=== PATIENT | female | born 1955 | race Caucasian/White ===

== ENCOUNTER 2019-03-29 11:24 | Emergency (ER) | payer BC ==
[2019-03-29 12:02] VITALS: BP 170/115
--- NOTE | 2019-03-29 12:17 | UC ---
Throat Pain/Nasal [place] HPI - HPI Summary HPI Summary: 64-year-old female who has had cold symptoms and intermittent head congestion over the past 2 months. She is no longer a smoker. Over the past few days she' s had increasing sinus pressure and now some sore throat which she attributed to postnasal drainage. - History of Current Complaint Chief Complaint: UCRespiratory Stated Complaint: SORE THROAT Time Seen by Provider: 03/29/19 12:05 Hx Obtained From: Patient ?: No Onset/Duration: Gradual Onset Severity: Moderate Pain Intensity: 10 Cough: Productive - Occasionally productive of some yellow sputum but the patient states this is postnasal drainage. Associated Signs & Symptoms: Positive: Sinus Discomfort, Nasal Discharge - Allergies/Home Medications Allergies/Adverse Reactions: Allergies Allergy/AdvReac Type Severity Reaction Status Date / Time No Known Allergies Allergy Verified 03/29/19 11:55 Home Medications: Home Medications Ibuprofen [Advil] 400 mg PO ONCE PRN 03/29/19 [History Confirmed 03/29/19] diphenhydrAMINE HCl [Benadryl Allergy] 50 mg PO ONCE PRN 03/29/19 [History Confirmed 03/29/19] PMH/Surg Hx/FS Hx/Imm Hx Previously Healthy: Yes - Surgical History Surgical History: Yes Surgery Procedure, Year, and Place: cataract - Family History Known Family History: Positive: Non-Contributory - Social History Lives: With Family Alcohol Use: Occasionally Substance Use Type: None Smoking Status (MU): Former Smoker Review of Systems All Other Systems Reviewed And Are Negative: Yes ENT: Positive: Sore Throat, Nasal Discharge, Sinus Congestion, Sinus Pain/ Tenderness Respiratory: Positive: Cough - Occasional cough of yellowish sputum which she states is postnasal drainage. Is Patient Immunocompromised?: No Physical Exam Triage Information Reviewed: Yes Appearance: Well-Appearing, No Pain Distress, Well-Nourished Vital Signs: Initial Vital Signs Temp 98.4 F 03/29/19 11:51 Pulse 87 03/29/19 11:51 Resp 18 03/29/19 11:51 BP 217/114 03/29/19 11:51 Pulse Ox 98 03/29/19 11:51 Vital Signs Reviewed: Yes Eyes: Positive: Conjunctiva Clear ENT: Positive: Pharyngeal erythema - Minimal pharyngeal erythema., Nasal congestion, Nasal drainage - Yellow purulent nasal coryza., TMs normal, Sinus tenderness - Tender over maxillary and frontal sinuses., Uvula midline Neck: Positive: Supple, Nontender, No Lymphadenopathy Respiratory: Positive: Lungs clear, Normal breath sounds, No respiratory distress, No accessory muscle use Cardiovascular: Positive: RRR, No Murmur, Pulses Normal, Brisk Capillary Refill Musculoskeletal Exam: Normal Neurological Exam: Normal Psychological Exam: Normal Skin Exam: Normal Throat Pain/Nasal Course/Dx - Course Course Of Treatment: Patient is comfortable here. I'm going to treat her for sinus infection and she is to follow up at [facility] no improvement in 4 or 5 days. - Differential Dx/Diagnosis Provider Diagnosis: Sinusitis Discharge ED - Sign-Out/Discharge Documenting (check all that apply): Patient Departure All imaging exams completed and their final reports reviewed: No Studies - Discharge Plan Condition: Fair Disposition: HOME Prescriptions: Amoxicillin PO (*) [Amoxicillin 875 MG (*)] 875 mg PO BID 10 Days #20 tab Patient Education Materials: Sinusitis (ED) Referrals: No Primary Care Phys,NOPCP [Primary Care Provider] - [facility] [Outside] Additional Instructions: Increase fluids, rest, [id number] cold medicines as directed. Follow up at [facility] in 4 or 5 days if no improvement. - Billing Disposition and Condition Condition: FAIR Disposition: Home
== END 2019-03-29 12:22 | disposition home or self-care (01) ==
LOC: UCEAST 11:24
DX: J32.9 Chronic sinusitis, unspecified (principal); J02.9 Acute pharyngitis, unspecified; Z87.891 Personal history of nicotine dependence
CPT/HCPCS: 99202; G0463

== ENCOUNTER 2019-04-26 10:14 | Inpatient (IN) | payer BC ==
--- NOTE | 2019-04-26 10:40 | ED ---
Throat Pain/Nasal Congestion - HPI Summary HPI Summary: This pt is a 64 y/o female presenting to [facility] c/o left sided throat pain. Pt reports she was found to have a mass on left side of neck on 04/24/10. She states she has a follow up with ENT in 4 days but decided to come in to the ED today due to pain. Pt notes she has had this mass for about 1 month now and has had decreased PO intake for 1 month secondary to pain. She has lost about 20 something lbs in the past 1 month. She states it is painful to swallow and has to spit out her secretions. Pt notes she is tired. Denies fever, SOB, chest pain. Pt is a former smoker, quit 7 years ago. - History of Current Complaint Chief Complaint: EDThroatPain Time Seen by Provider: 04/26/19 10:34 Hx Obtained From: Patient Onset/Duration: Lasting Weeks, Still Present Severity: Moderate Associated Signs And Symptoms: Positive: Drooling Cough: None Related History: Other (Noted In Comments) - CT on 04/24/19 showing mass on left side of neck - Allergies/Home Medications Allergies/Adverse Reactions: Allergies Allergy/AdvReac Type Severity Reaction Status Date / Time No Known Allergies Allergy Verified 04/26/19 10:28 PMH/Surg Hx/FS Hx/Imm Hx Endocrine/Hematology History: Denies: Hx Diabetes Cardiovascular History: Denies: Hx Hypertension - episode x 1 no meds History: Reports: Hx Renal Disease - abnormal gfr Denies: Hx Dialysis - Surgical History Surgical History: Yes Surgery Procedure, Year, and Place: cataract Infectious Disease History: No Infectious Disease History: Denies: Traveled Outside the [place] in Last 30 Days - Family History Known Family History: Positive: Cardiac Disease - Brother with PA Family History: Father with [place]. - Social History Alcohol Use: Occasionally Substance Use Type: Reports: None Smoking Status (MU): Former Smoker Review of Systems Constitutional: Other - POSITIVE: decreased PO intake Negative: Fever, Chills ENT: Other - POSITIVE: throat pain Negative: Chest Pain Negative: Shortness Of Breath All Other Systems Reviewed And Are Negative: Yes Physical Exam - Summary Physical Exam Summary: VITAL SIGNS: Reviewed. GENERAL: Patient is a well-developed and nourished female. Patient is not in any acute respiratory distress. Patient has muffled voice and is drooling. HEAD AND FACE: No signs of trauma. No ecchymosis, hematomas or skull depressions. No sinus tenderness. EYES: PERRLA, EOMI x 2, No injected conjunctiva, no nystagmus. EARS: Hearing grossly intact. Ear canals and tympanic membranes are within normal limits. MOUTH: Oropharynx within normal limits. Drooling NECK: Supple, trachea is midline, swelling on the soft palate on the left side. No JVD, no carotid bruit, no c-spine tenderness, neck with full ROM. CHEST: Symmetric, no tenderness at palpation. LUNGS: Clear to auscultation bilaterally. No wheezing or crackles. CVS: Regular rate and rhythm, S1 and S2 present, no murmurs or gallops appreciated. ABDOMEN: Soft, non-tender. No signs of distention. No rebound, no guarding, and no masses palpated. Bowel sounds are normal. EXTREMITIES: FROM in all major joints, no edema, no cyanosis or clubbing. NEURO: Alert and oriented x 3. No acute neurological deficits. Speech is normal and follows commands. SKIN: Dry and warm. Triage Information Reviewed: Yes Vital Signs On Initial Exam: Initial Vitals Temp Pulse Resp BP Pulse Ox 97.7 F 101 16 142/96 97 04/26/19 10:25 04/26/19 10:25 04/26/19 10:25 04/26/19 10:25 04/26/19 10:25 Vital Signs Reviewed: Yes Procedures - Sedation Patient Received Moderate/Deep Sedation with Procedure: No Diagnostics - Vital Signs Vital Signs Temp Pulse Resp BP Pulse Ox 04/26/19 10:25 97.7 F 101 16 142/96 97 - Laboratory Result Diagrams: 04/26/19 10:53 04/26/19 10:53 Lab Statement: Any lab studies that have been ordered have been reviewed, and results considered in the medical decision making process. - Radiology Chest XR Radiology Interpretation Completed By: Radiologist Summary of Radiographic Findings: IMPRESSION: 1. No focal airspace opacification. 2. CT is more sensitive for small pulmonary nodules (could be done electively as part of staging workup). Dr. Bernabe has reviewed this report. - CT Neck CT (04/24/19) CT Interpretation Completed By: Radiologist Summary of CT Findings: IMPRESSION: Aggressive appearing 3.8 x 3.9 x 6 cm LEFT neck mass as described involement of multiple deep spaces of the neck and direct extesnsion into the LEFT skull base and LEFT anterior arch of C1. Consider contrast-enhanced CT for further assessment and ENT referral for direct optical inspection and tissue sampling for pathologic assessment. Dr. Bernabe has reviewed this report. - EKG 1055 Cardiac Rate: NL - at 87 bpm EKG Rhythm: Sinus Rhythm Summary of EKG Findings: EKG at 1055 shows normal sinus rhythm at a rate of [address] depressions in leads II, III, aVF, V3-V6. EENT Course/Dx - Course Assessment/Plan: This pt is a 64 y/o female presenting to [facility] c/o left sided throat pain. Pt reports she was found to have a mass on left side of neck on 02/22. She states she has a follow up with ENT in 4 days but decided to come in to the ED today due to pain. Pt notes she has had this mass for about 1 month now and has had decreased PO intake for 1 month secondary to pain. She has lost about 20 something lbs in the past 1 month. She states it is painful to swallow and has to spit out her secretions. Pt notes she is tired. Denies fever, SOB, chest pain. Pt is a former smoker, quit 7 years ago. Blood test results without any significant abnormality except for WBCs of 12, potassium 3, chloride 90, anion gap is 16, BUN is 53, creatinine 1.69. Glucose is 142, calcium 12, alkaline phosphatase is 112. The neck CT done a couple days ago shows that the patient has a mass on the left side of the neck. I discussed the case with Dr. Torres, ENT, and requests to admit the patient to the hospitalist services. Discussed with Dr. Camacho to perform fine needle aspiration and he will consult tomorrow morning. I also discussed the case with Dr. Rivera from oncology who will consult for this patient. I discussed my physical exam and test results with Dr. Pantoja from the hospitalist services and she agrees to admit the patient to her services. The patient is hemodynamically stable, alert and oriented x 3. - Diagnoses Provider Diagnoses: Neck mass - Provider Notifications Discussed Care Of Patient With: Jaime Torres Time Discussed With Above Provider: 10:42 Instructed by Provider To: Other - Discussed case with Dr. Torres, ENT, who reports he will review the CT scan and call me back in 10-15 minutes. [10:53] Dr. Torres recommends admission to the hospitalist, speaking with Dr. Camacho, pathologist, to see if he can do a fine needle aspiration and he will consult for the pt tomorrow morning. [11:22] Dr. Richardson reports he is coming to do the biopsy. [11:48] Discussed the case with Dr. Pantoja, hospitalist , who accepted the pt for admission. [11:50] Discussed with Dr. Rivera, oncologist , who will also consult for the patient. Discharge ED - Sign-Out/Discharge Documenting (check all that apply): Patient Departure - Admit to [facility] All imaging exams completed and their final reports reviewed: Yes - Discharge Plan Condition: Stable Disposition: ADMITTED TO [facility] - Billing Disposition and Condition Condition: STABLE Disposition: Admitted to [facility] - Attestation Statements Document Initiated by Cristiane: Yes Documenting Scribe: Adriana Valdez Provider For Whom Cristiane is Documenting (Include Credential): Russell Bernabe MD Scribe Attestation: Adriana Palacios, scribed for Russell Bernabe MD on 04/26/19 at 2125. Scribe Documentation Reviewed: Yes Provider Attestation: The documentation as recorded by the Adriana piper accurately reflects the service I personally performed and the decisions made by me, Russell Bernabe MD Status of Scribe Document: Viewed
[2019-04-26] MEDS ORDERED: NS 0.9% 1000 ML** 2,000 ML IV ONE (10:44)
[2019-04-26] MEDS ORDERED: Morphine 4 MG/ML VIAL (1 ml) 4 MG/ML VIAL IV ONE (10:45)
[2019-04-26] MEDS ORDERED: Ondansetron INJ* 2 MG/ML VIAL IV ONE (10:45)
[2019-04-26 11:08] LABS: ABS Lymphocytes 1.2 10^3/ul (1.0-4.8); ABS Monocytes 0.6 10^3/ul (0-0.8); ABS Neutrophils 10.1 10^3/ul (1.5-7.7); Eosinophil % 0.1 %; Hematocrit 44 % (35-47); Hemoglobin 14.7 g/dL (12.0-16.0); Lymphocyte % 10.3 %; Mean Corpuscular HGB Conc 34 g/dL (31-36); Mean Corpuscular Hemoglobin 29 pg (27-31); Mean Corpuscular Volume 86 fL (80-97); Mean Platelet Volume 7.7 fL (7.4-10.4); Nucleated Red Blood Cells % 0.1; Platelet Count 437 10^3/uL (150-450); Red Blood Count 5.12 10^6 /uL (3.70-4.87); Red Cell Distribution Width 13 % (10-15)
--- OUTSIDE RECORDS SUMMARY | 2019-04-26 11:10 | XMS REPORT | Continuity of Care Document ---
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 Problems Description No Information Available Social History Type Date Description Comments Sex Unknown Tobacco Use Start: Unknown Patient has never smoked Smoking Status Reviewed: 04/23/19 Patient has never smoked Allergies, Adverse Reactions, Alerts Description No Known Drug Allergies Medications Description No Active Medications Immunizations Description No Information Available Vital Signs Date Vital Result Comment 04/23/2019 10:18am Height 66 inches 5'6" Weight 117.00 lb Heart Rate 94 /min BP Systolic 176 mmHg BP Diastolic 111 mmHg BP Systolic Sitting 157 mmHg recheck BP Diastolic Sitting 105 mmHg recheck Body Temperature 98.1 F O2 % BldC Oximetry 96 % BMI (Body Mass Index) 18.9 kg/m2 Results Test Acquired Date Facility Test Result H/L Range Note Laboratory test 04/23/2019 [facility] TSH 2.27 Normal 0.34- 5.[address] (Thyroid mcIU/[place] [address] Stim [phone] Horm) Free T4 (Free Thyroxine) 1.41 ng/dL High 0.61-1.12 Comp Metabolic 04/23/2019 [facility] Sodium 139 mmol/L Normal 135-[address] [place] [address] [phone] Potassium 3.6 mmol/L Normal 3.5-5.0 Chloride 90 mmol/L Low 101-111 Co2 Carbon Dioxide 32 mmol/L Normal 22-32 Anion Gap 17 mmol/L High 2-11 Glucose 132 mg/dL High 70-100 Blood Urea Nitrogen 43 mg/dL High 6-24 Creatinine 1.38 mg/dL High 0.51-0.95 BUN/Creatinine Ratio 31.2 High 8-20 Calcium 12.7 mg/dL High 8.6-10.3 Total Protein 7.8 g/dL Normal 6.4-8.9 Albumin 4.9 g/dL Normal 3.2-5.2 Globulin 2.9 g/dL Normal 2-4 Albumin/Globulin Ratio 1.7 Normal 1-3 Total Bilirubin 0.90 mg/dL Normal 0.2-1.0 Alkaline Phosphatase 115 U/L High 34-104 Alt 57 U/L High 7-52 Ast 48 U/L High 13-39 Egfr Non- 38.7 >60 Egfr 46.9 >60 1 CBC Auto 04/23/2019 [facility] White Blood 11.9 10^3/uL High 3.5-10.[address] [place] [address] [phone] Red Blood Count 5.33 10^6/uL High 3.70-4.87 Hemoglobin 15.3 g/dL Normal 12.0-16.0 Hematocrit 46 % Normal 35-47 Mean Corpuscular Volume 87 fL Normal 80-97 Mean Corpuscular Hemoglobin 29 pg Normal 27-31 Mean Corpuscular HGB Conc 33 g/dL Normal 31-36 Red Cell Distribution Width 13 % Normal 10-15 Platelet Count 479 10^3/uL High 150-450 Mean Platelet Volume 7.7 fL Normal 7.4-10.4 Abs Neutrophils 10.2 10^3/uL High 1.5-7.7 Abs Lymphocytes 1.1 10^3/uL Normal 1.0-4.8 Abs Monocytes 0.6 10^3/uL Normal 0-0.8 Abs Eosinophils 0.0 10^3/uL Normal 0-0.6 Abs Basophils 0.0 10^3/uL Normal 0-0.2 Abs Nucleated RBC 0.0 10^3/uL Granulocyte % 86.0 % Lymphocyte % 9.0 % Monocyte % 4.8 % Eosinophil % 0.1 % Basophil % 0.1 % Nucleated Red Blood Cells % 0.0 Laboratory test 04/23/2019 [facility] C Reactive 6.30 mg/L Normal <8.[address] [place] [address] [phone] LDH 247 U/L Normal 140-271 1 Because ethnic data is not always readily available, this report includes an eGFR for both -Americans and non- Americans. The National Kidney Disease Education Program (NKDEP) does not endorse the use of the MDRD equation for patients that are not between the ages of 18 and 70, are , have extremes of body size, muscle mass, or nutritional status, or are non- or non-. According to the National Kidney Foundation, irrespective of diagnosis, the stage of the disease is based on the level of kidney function: Stage Description GFR(mL/min/1.73 m(2)) 1 Kidney damage with normal or decreased GFR 90 2 Kidney damage with mild decrease in GFR 60-89 3 Moderate decrease in GFR 30-59 4 Severe decrease in GFR 15-29 5 Kidney failure <15 (or dialysis) Procedures Description No Information Available Medical Devices Description No Information Available Encounters Description No Information Available Assessments Date Code Description Provider 04/23/2019 R22.1 Localized swelling, mass and lump, neck Arvind Sevilla MD 04/23/2019 R13.10 Dysphagia, unspecified Arvind Sevilla MD 04/23/2019 Z00.01 Encounter for general adult medical examination with Arvind Sevilla MD abnormal findings 04/23/2019 I10 Essential (primary) hypertension Arvind Sevilla MD Plan of Treatment Future Appointment(s):05/01/2019 8:00 am - Beata Luciano DO at [facility] Internal Medicine - [address]/24/2018 - FERN Johnson22.1 Localized swelling, mass and lump, neckNew Xrays:CT Soft Tissue Neck W/Wo, Ordered: 04/23/19Referral: Tulio Torres MD, [id number] Dysphagia, [id number] Encounter for general adult medical examination with abnormal [id number] Essential (primary) hypertension Functional Status Description No Information Available Mental Status Description No Information Available Referrals Refer to Reason for Referral Status Appt Date Tulio Torres MD Dysphagia and suspected Throat mass Created [address] [place] [address] [phone]
--- OUTSIDE RECORDS SUMMARY | 2019-04-26 11:10 | XMS REPORT | Continuity of Care Document ---
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 Problems Description No Information Available Social History [...] Result H/L Range Note Laboratory test 04/23/2019 [facility] TSH 2.27 Normal 0.34- 5.[address] (Thyroid mcIU/[place] [address] Stim [phone] Horm) Free T4 (Free Thyroxine) 1.41 ng/dL High 0.61-1.12 Comp Metabolic 04/23/2019 [facility] Sodium 139 mmol/L Normal 135-[address] [place] [address] [phone] Potassium 3.6 mmol/L Normal 3.5-5.0 Chloride 90 [...] Egfr 46.9 >60 1 CBC Auto 04/23/2019 [facility] White Blood 11.9 10^3/uL High 3.5-10.[address] [place] [address] [phone] Red Blood Count 5.33 10^6/uL High 3.70-4.87 [...] Blood Cells % 0.0 Laboratory test 04/23/2019 [facility] C Reactive 6.30 mg/L Normal <8.[address] [place] [address] [phone] LDH 247 U/L Normal 140-271 1 Because [...] 8:00 am - Beata Luciano DO at [facility] Internal Medicine - [address]/24/2018 - FERN Johnson22.1 Localized swelling, mass and lump, neckNew Xrays:CT Soft Tissue Neck W/Wo, Ordered: 04/23/19Referral: Tulio Torres MD, [id number] Dysphagia, [id number] Encounter for general adult medical examination with abnormal [id number] Essential (primary) hypertension Functional Status Description No Information Available Mental Status Description No Information Available Referrals Refer to Reason for Referral Status Appt Date Tulio Torres MD Dysphagia and suspected Throat mass Created [address] [place] [address] [phone]
[2019-04-26 11:25] LABS: Albumin 4.6 g/dL (3.2-5.2); Albumin/Globulin Ratio 1.2 (1-3); BUN/Creatinine Ratio 31.4 (8-20); C Reactive Protein 4.74 mg/L (<8.01); EGFR African American 37.1 (>60); EGFR Non-African American 30.7 (>60); Globulin 3.7 g/dL (2-4); Total Bilirubin 0.9 mg/dL (0.2-1.0); Total Protein 8.3 g/dL (6.4-8.9)
[2019-04-26 12:33] LABS: Magnesium 2.1 mg/dL (1.9-2.7)
[2019-04-26] MEDS ORDERED: NS 0.9% 1000 ML** 1,000 ML IV SCH (12:45)
[2019-04-26] MEDS: KCL 10 MEQ/50 ML IVPREMIX* 10 MEQ/50 ML BAG IV SCH ×2 (12:45→14:40)
--- NOTE | 2019-04-26 12:56 | PN ---
Date of Service: 04/26/19 Vital Signs: Temp Pulse Resp BP SpO2 FiO2 36.5 C 68 18 147/99 100 04/26/19 10:25 04/26/19 12:00 04/26/19 11:14 04/26/19 11:25 04/26/19 12:00 Physical Exam: Gen: HEENT: Lungs: Cardiac: Abdomen: Extremities: Neuro: Fluid Balance (Past 24 Hours): I= O= Net Intake & Output 04/24/19 04/25/19 04/26/19 04/27/19 06:59 06:59 06:59 06:59 Intake Total 1000 Balance 1000 Weight 53.07 kg Intake: IV Fluids 1000 Labs: Laboratory Results - last 24 hr 04/26/19 04/26/19 10:53 10:53 WBC 12.0 H RBC 5.12 H Hgb 14.7 Hct 44 MCV 86 MCH 29 MCHC 34 RDW 13 Plt Count 437 MPV 7.7 Neut % (Auto) 84.0 Lymph % (Auto) 10.3 Grainger % (Auto) 5.3 Eos % (Auto) 0.1 Baso % (Auto) 0.3 Absolute Neuts (auto) 10.1 H Absolute Lymphs (auto) 1.2 Absolute Monos (auto) 0.6 Absolute Eos (auto) 0.0 Absolute Basos (auto) 0.0 Absolute Nucleated RBC 0.0 Nucleated RBC % 0.1 Sodium 137 Potassium 3.0 L Chloride 90 L Carbon Dioxide 31 Anion Gap 16 H BUN 53 H Creatinine 1.69 H Est GFR ( Amer) 37.1 Est GFR (Non-Af Amer) 30.7 BUN/Creatinine Ratio 31.4 H Glucose 142 H Calcium 12.0 H Magnesium 2.1 Total Bilirubin 0.90 AST 41 H ALT 75 H Alkaline Phosphatase 112 H C-Reactive Protein 4.74 Total Protein 8.3 Albumin 4.6 Globulin 3.7 Albumin/Globulin Ratio 1.2 Plan: Asked to see by Dr. Chong for airway evaluation. Came to ED today with progressive symptoms of vocal tonal change in setting of the known mass. Just underwent left lateral neck submandibular biopsy of known mass in the ED. She speaks in full sentences, denies SOB. Lung gonsales are clear and she has no stridor. Mild dysphagia but the pain is high lateral neck anterior to her ear not in the area of the esophagus. She has no stridor at all and is saturating well on RA with no excess WOB. CT scan to my eye with no subglottic impingement. The mass is readily visible in the lateral neck but the hypopharynx is widely patent to the cords. No evidence of airway compromise at this time. OK to floor. D/W pt and family in detail who had no concerns at all along these lines and voiced understanding and appreciation for the care. D/W Dr Chong.
--- NOTE | 2019-04-26 14:23 | HP ---
HISTORY AND PHYSICAL: DATE OF ADMISSION: 04/26/19 TIME OF EVALUATION: 11:50 a.m. CHIEF COMPLAINT: Neck pain. HISTORY OF PRESENT ILLNESS: Ms. Francis is a 64-year-old female with no reported past medical history, but who also does not see a primary care provider, who reports that about a month ago she developed "sinusitis." She describes postnasal drip, nasal congestion, and she went to urgent care on 03/29/19 and she was prescribed amoxicillin. She states that she had no improvement in her symptoms and they actually have progressed to the point that she started to have difficulty swallowing due to the large amount of mucus. She states that her last solid meal was during , and since then, she has been able to drink only liquids. She saw Dr. Sevilla at the [facility] on 04/23/19, and as per his note , the patient had developed nasal quality to her voice in early February, presented to urgent care on 03/29/19 with intermittent cold and sinus congestion for 2 months. Was prescribed amoxicillin for 10 days. She had complaints of soreness at the back of her head and neck, more on the left side as well as copious amount of yellow brown mucus. There was no history of fever and she also noticed some left-sided neck swelling. She lost 20 pounds in the last month with a choking sensation and is frequently spitting food back up. No pain when swallowing. At that time, he ordered a CT of the neck that showed an aggressive appearing 3.8 x 3.9 x 6 cm left neck mass with involvement of multiple deep spaces of the neck and direct extension to the left skull base and left anterior arch of C1. Due to this aggressive mass, the hospitalist service was called for evaluation. PAST MEDICAL HISTORY: The patient denies any other health issues, but has not seen a primary care provider in more than 10 years. PAST SURGICAL HISTORY: Status post cataract surgery. MEDICATIONS: None. ALLERGIES: None. FAMILY HISTORY: Father was a smoker, at age 74 of lung cancer. Mother passed at age 71 of COPD, she was also a smoker. As far as she knows, there is no other family history of cancer. SOCIAL HISTORY: The patient states that she used to have 3 to 4 beers a day in the past, but since she started to have symptoms she has not had alcohol. She was a smoker from age 20 to 58 up to a pack a day. She denies drug use. 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 Surrogate decision maker is her , Sj Francis, phone number is [phone]. REVIEW OF SYSTEMS: A 14-point review of systems was performed and all the pertinent negative and positive findings are in the HPI. PHYSICAL EXAMINATION GENERAL: The patient is a pleasant elderly lady, sitting up in bed, in no acute distress. VITAL SIGNS: Temperature 97.7, heart rate is 65, respiratory rate is 18, oxygen saturation is 97% on room air, blood pressure is 153/96. HEENT: Pupils are equal. Moist mucous membranes. There is deformity of the soft palate on the left with signs of extrinsic compression. There is a palpable hard mass on the left aspect of the mandible under the left ear involving her neck and extending upwards towards the back of the ear. The mass is mildly tender on palpation. It is nonmobile. CHEST: Breath sounds present bilaterally with no added sounds. CVS: Normal S1, S2. Regular rate and rhythm. ABDOMEN: Soft, nontender, nondistended. Bowel sounds are present. EXTREMITIES: No edema. NEURO: She is alert and oriented x3. Able to move all 4 extremities. DIAGNOSTIC STUDIES/LAB DATA: The patient had a CBC that showed a WBC of 12, hemoglobin 14.7, hematocrit 44, platelets of 457 with 84% neutrophils. Chemistry showed a sodium of 137, potassium of 3, chloride of 90, bicarb of 31, BUN 53, creatinine is 1.69, glucose of 142, calcium is 12, magnesium is 2.1. LFTs showed total bilirubin of 0.9, AST 41, ALT is 75, alk phos is 112. CT of the neck without contrast as described above showed a 3.8 x 3.9 x 6 cm left neck mass with involvement of multiple deep spaces of the neck and direct extension into the left skull base and left anterior arch of C1. EKG done on 04/26/19 at 10:55 a.m. shows sinus rhythm at 87 beats per minute with diffuse ST depressions in II, III, aVF and anterior leads and signs of LVH. Chest x-ray showed no focal airspace opacification. ASSESSMENT AND PLAN: Ms. Francis is a 64-year-old female with a past medical history of tobacco abuse and limited contact with the health care system, who presents with more than a month of progressive upper respiratory symptoms, initially treated for sinusitis, but who developed a left-sided neck mass suggestive of an aggressive malignancy. 1. Neck mass. The patient will be admitted to the medical floor and she will have a fine needle aspiration biopsy done by . Consultations with Dr. Torres (ENT) and Dr. Rivera (Oncology) were already requested as we suspect this is an aggressive malignancy and the patient will require therapy soon. We will continue pain management. She will have a swallow evaluation, but for now we will continue a clear liquid diet. 2. Transaminitis. Can be secondary to metastatic disease. For now, I am going to do a right upper quadrant ultrasound, and after Oncology evaluation, we will request the other staging tests that Oncology wishes. 3. DVT prophylaxis: The patient has a score of 2 on the DVT Prophylaxis Risk Assessment Guide and she will have SCDs for now as she will have a biopsy done. 4. Code status is full. TIME SPENT: Approximately 60 minutes was spent with the patient and family interview, medical records review, physical examination to complete this admission; more than half this time was spent [id number] with the patient and coordination of care. [id number]/[facility] #: [id number] JONELLE
[2019-04-26] MEDS: Morphine INJ* 4 MG/ML 1 ML SYRINGE (NEW SYRINGE VERSION) IV PRN ×4 (14:40→23:22)
--- NOTE | 2019-04-26 16:14 | ECHO ---
*[facility]* [place] [address] Fax #: [phone] Transthoracic Echocardiogram Patient: Sammie Francis : 1955 Study Date: 04/26/2019 Age: 64 Gender: F HR: 61 bpm Height: 66 in /167.6 cm BSA: 1.59 m^2 Weight: 116.8 lb /53.1 kg BMI: 18.9 kg/m^2 *Elementary School Social Worker: * Concetta Hou [facility] *Referring Physician: * Jeniffer MaharajReading Physician: * Edgar Palomino MD Indications: Abnormal EKG. History: Risk factors: Former tobacco use. Conclusions Summary: - Left ventricle: The cavity size is normal. Wall thickness is mildly increased. Systolic function is normal. The estimated ejection fraction is 55-60%. - Mitral valve: There is trace regurgitation. - Aortic valve: There is trace regurgitation. - Tricuspid valve: There is moderate regurgitation directed eccentrically and toward the septum. - Pulmonary arteries: Systolic pressure is mildly increased. The peak pressure during systole by Doppler is 41.0 mm Hg. - No previous echocardiogram available. Study data: Transthoracic echocardiogram. Procedure: Transthoracic echocardiography was performed. Image quality was fair. Complete 2D, spectral Doppler, and color flow Doppler. Location: Bedside. Patient status: Inpatient. Patient room number: 421. Rhythm: Normal sinus rhythm. Findings Left ventricle: The cavity size is normal. Wall thickness is mildly increased. Systolic function is normal. The estimated ejection fraction is 55-60%. Wall motion is normal; there are no regional wall motion abnormalities. Left ventricular diastolic function parameters are normal. Right ventricle: The cavity size is normal. Systolic function is normal. Left atrium: The atrium is normal in size. Right atrium: The atrium is normal in size. Mitral valve: The leaflets are normal thickness. There is no evidence of stenosis. There is trace regurgitation. Aortic valve: The valve is trileaflet. The leaflets are mildly thickened. There is no evidence of stenosis. There is trace regurgitation. Tricuspid valve: The leaflets are normal thickness. There is no evidence of stenosis. There is moderate regurgitation directed eccentrically and toward the septum. Pulmonic valve: The leaflets are normal thickness. There is no evidence of stenosis. There is no significant regurgitation. Aorta: Aortic root: The aortic root is appears normal. Aortic arch: The aortic arch is poorly visualized. Pericardium: There is no significant pericardial effusion. Pulmonary arteries: Systolic pressure is mildly increased. Systemic veins: Inferior vena cava: The vessel is normal in size. There is (>= 50%) respiratory change in the IVC dimension. Measurements Left ventricle Value Ref Aortic valve Value Ref DALLIN, LAX (L) 3.7 cm 3.8 - Luz diam, ED 1.9 cm ----- 5.2 Peak v, S 1.19 m/sec ----- ESD, LAX 2.6 cm 2.2 - VTI, S 21.7 cm ----- 3.5 Mean grad, S 3.0 mm Hg ----- FS, LAX 28 % 27 - 45 Peak grad, S 6.0 mm Hg ----- PW, ED, LAX (H) 1.1 cm 0.6 - 0.9 Mitral valve Value Ref E', lat luz, TDI 13.3 cm/sec >=10.0 Peak E 0.7 m/sec --- -- E/e', lat luz, TDI 5 -------- Peak A 0.6 m/sec ----- E', med luz, TDI 9.3 cm/sec >=7.0 Decel time 280 ms --- -- E/e', med luz, TDI 8 -------- Peak E/A ratio 1.2 ----- E', avg, TDI 11.3 cm/sec -------- E/e', avg, TDI 6 <=14 Tricuspid valve Value Ref TR peak v (H) 3.1 m/sec <=2.8 LVOT Value Ref Peak RV-RA grad, S 38 mm Hg ----- Peak darron, S 1.2 m/sec -------- Peak grad, S 6 mm Hg -------- Aortic root Value Ref Mean grad, S 2 mm Hg -------- Root diam 3.3 cm <3.8 Ventricular septum Value Ref Pulmonary artery Value Ref IVS, ED 0.9 cm 0.6 - Pressure, S 41.0 mm Hg ----- 0.9 Inferior vena cava Value Ref Right ventricle Value Ref Diam 1.5 cm ----- DALLIN minor ax, A4C 2.6 cm 1.9 - mid 3.5 Pulmonary veins Value Ref Pressure, S 41 mm Hg -------- Peak v, S 0.6 m/sec ----- Peak v, D 0.37 m/sec ----- Left atrium Value Ref Peak S/D ratio 1.6 ----- ML dim, A4C 3.5 cm -------- A rev duration 108 ms ----- SI dim, A4C 4.7 cm -------- Vol/bsa, ES, A/L 28 ml/m^2 16 - 34 Right atrium Value Ref SI dim, ES 3.6 cm 3.4 - 5.3 ML dim, ES, A4C 3.7 cm 2.6 - 4.4 Estimated RAP 3 mm Hg -------- Legend: (L) and (H) melissa values outside specified reference range. Prepared and electronically signed by Edgar Palomino MD 04/26/2019 16:13
[2019-04-26] MEDS ORDERED: Zoledronic Acid* 4 MG in NS 0.9% 100 ML* 95 ML IVPB ONE (19:30)
--- NOTE | 2019-04-26 20:21 | CONS ---
CONSULTATION REPORT: DATE OF CONSULT: 04/26/19 IDENTIFICATION: A 64-year-old female with sinus mass. HISTORY OF PRESENT ILLNESS: Ms. Francis has generally been in very good health, generally does not go to see the doctor regularly. She developed a cold in late summer to early fall that was persistent and just felt like it never went away. She had nasal drip and a consistent nasal congestion. Symptoms were progressing in March and she went to Urgent Care on 03/29/19, diagnosed with sinusitis and prescribed amoxicillin. Her symptoms did not improve at all. Over the past 3 weeks, her symptoms had gotten worse and worse. She started to develop excruciating pain in her sinus and neck. She cannot move her neck and it got to the point that any movement is painful. She stopped eating solid foods because she could not swallow comfortably. It was progressive pain in the face and the neck that brought her to the emergency room. She had seen Dr. Sevilla at [facility] on 04/23/19 who noticed soreness at the back of her head and neck, particularly on the left side. He ordered a CT scan of the neck, performed on 04/24/19. CT was done without contrast and showed a 3.8 x 6 cm soft tissue density centered in the left oropharynx and extending to the skull base as well as into the hypopharynx and down to the hyoid bone. Mass obscures soft tissue planes and parapharyngeal and lateral pharyngeal space. It extends into the bone at the left skull base. No clear lymphadenopathy. On presentation to the emergency room, an FNA was done, results are pending. She was admitted to the floor. Additional blood work today included chemistries with potassium of 3.0, creatinine 1.69, calcium 12, repeated with PTH with calcium 12.2 and PTT 2.6, AST 41, ALT 75, and alkaline phosphatase 112. She has a glucose of 142. Leukocytosis with white cells 12; mostly neutrophils, normal hemoglobin and platelets, but she is dehydrated. In addition to pain and decreased appetite, she reports some constipation, normal urination, and a decrease or lack of oral intake. No fever, chills, or night sweats and she has not felt any lymphadenopathy. She has had a 20-pound weight loss over the last month. PAST MEDICAL HISTORY: None. PAST SURGICAL HISTORY: Cataracts. ALLERGIES: Allergies. FAMILY HISTORY: Father had lung cancer at 74 and was a smoker. Mother was a smoker and had COPD. SOCIAL HISTORY: . is with her in the hospital. Drinker prior to being ill, 3 to 4 beverages per day. History of smoking, [id number], but has stopped. 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 Jorge Francis is the and surrogate decision maker. His phone is [phone]. REVIEW OF SYSTEMS: As noted in the history of present illness; otherwise, 14- review was negative. PHYSICAL EXAM: Temperature 97.4, BP 150/89, pulse 64, respirations 16, O2 sat 93%. HEENT: Oral mucosa moist. No lesions. Pupils equal, round, and reactive to light. She does not open her mouth very far and it is hard to see the back of the oropharynx, but there was a bulge on the soft palate with some shift. On neck exam, there is a palpable mass under the left mandible extending up to the skull base and over the neck musculature. Tenderness with any movement. Lungs: Clear to auscultation bilaterally. Heart: Regular rate and rhythm, S1 , S2. No murmurs or gallops. Abdomen: Nontender, nondistended. Cannot palpate the spleen. Nodes: No peripheral lymphadenopathy. Extremities: No edema. Neurologic: Oriented x3, grossly nonfocal. DIAGNOSTIC STUDIES/LAB DATA: Labs and CT as above. ASSESSMENT AND PLAN: A 64-year-old female who presents with a large mass likely originating in the oropharynx and invading into the bone and through structures of the left neck. She also presents with hypercalcemia, low potassium. Initially appearance with FNA is lymphoid. Differential diagnosis include aggressive lymphoma; T cell or B cell, nasopharyngeal carcinoma, poorly differentiated squamous cell cancer, possible less likely given initial pathology read. 1. Malignancy. We would like to correct renal insufficiency and then plan CT scan of the chest, abdomen, and pelvis as well as MRI of the sinuses and neck. We will await additional pathology results. Check LDH, beta-2 microglobulin, and SPEP. If tomorrow initial lymphoid markers are positive, we will plan bone marrow biopsy. 2. FEN. Normal saline at 200 cc an hour with 40 mEq of potassium. Zometa 4 mg IV x1 now. Recheck CMP and magnesium in the morning. 3. Pain. Currently on morphine 4 mg IV p.r.n. We will continue to follow through hospitalization. [id number]/[facility] #: [id number] JONELLE
[2019-04-26] MEDS: PROCHLORPERAZINE INJ 5 MG/ML 2 ML VIAL IV PRN (20:50)
[2019-04-26] MEDS: NS 0.9% w/ 40 Meq KCL 1000 ML* 1,000 ML IV SCH ×2 (23:01)
[2019-04-27] MEDS: Morphine INJ* 4 MG/ML 1 ML SYRINGE (NEW SYRINGE VERSION) IV PRN ×6 (04:09→23:47)
[2019-04-27] MEDS: PROCHLORPERAZINE INJ 5 MG/ML 2 ML VIAL IV PRN ×2 (04:09→13:30)
[2019-04-27 04:33] LABS: Urine Appearance Clear; Urine Bilirubin Negative (Negative); Urine Blood Negative (Negative); Urine Color Yellow; Urine Glucose Negative (Negative); Urine Ketones 1+ (Negative); Urine Nitrite Negative (Negative); Urine Protein Negative (Negative); Urine Specific Gravity 1.014 (1.010-1.030); Urine Urobilinogen Negative (Negative)
[2019-04-27 04:36] LABS: Urine Bacteria Absent (Absent); Urine Red Blood Cell 1+(3-5/hpf) (Absent); Urine White Blood Cell 2+(11-20/hpf) (Absent)
[2019-04-27] MEDS: NS 0.9% w/ 40 Meq KCL 1000 ML* 1,000 ML IV SCH ×3 (05:15→18:25)
[2019-04-27 07:06] LABS: Albumin 3.4 g/dL (3.2-5.2); Albumin/Globulin Ratio 1.3 (1-3); Calcium 9.4 mg/dL (8.6-10.3); EGFR African American 80.9 (>60); EGFR Non-African American 66.9 (>60); Globulin 2.6 g/dL (2-4); Magnesium 1.7 mg/dL (1.9-2.7); Potassium 4.3 mmol/L (3.5-5.0); Total Bilirubin 0.5 mg/dL (0.2-1.0)
[2019-04-27] MEDS ORDERED: Magnesium Sulfate 2 GM IV* 2 GM/50 ML BAG IVPB ONE (07:52)
[2019-04-27] MEDS ORDERED: Morphine TAB Extended Release (*) 15 MG TAB.ER PO SCH (10:00)
[2019-04-27] MEDS ORDERED: Lorazepam PYXIS KEY PRN (10:32)
[2019-04-27] MEDS ORDERED: LORazepam INJ* 2 MG/ML 1 ML VIAL IV PUSH PRN (10:32)
[2019-04-27] MEDS ORDERED: Iodixanol* (CONTRAST) 320 MG/ML 100 ML SDV IV ONE ×2 (10:59→15:42)
--- NOTE | 2019-04-27 18:05 | PN ---
Subjective Date of Service: 04/27/19 Interval History: Patient has severe pain, in jaw and head, worse with laying flat. Patient denies CP, SOB, Dizziness, abdominal pain, diarrhea, F/C. Patient has persistent drainage into her throat. Family History: Unchanged from Admission Social History: Unchanged from Admission Past Medical History: Unchanged from Admission Objective Active Medications: Potassium Chloride/Sodium Chloride (Ns 0.9% W/ 40 Meq Kcl 1000 Ml*) 1,000 mls @ 175 mls/hr IV PER [facility]ATE [facility] Last Admin: 04/27/19 12:14 Dose: 175 mls/hr Lorazepam (Ativan Inj*) 1 mg IV PUSH ONCE PRN PRN Reason: ANXIETY Last Admin: 04/27/19 15:01 Dose: 1 mg Miscellaneous (Ativan Pyxis Cramer) 1 ea N/A .ATIVAN IV CRAMER PRN PRN Reason: PYXIS CRAMER Morphine Sulfate (Morphine Inj (Syringe)*) 4 mg IV Q2H PRN PRN Reason: SEVERE PAIN Last Admin: 04/27/19 17:40 Dose: 4 mg Morphine Sulfate (Ms Contin(*)) 15 mg PO Q12H [facility] Last Admin: 04/27/19 09:30 Dose: 15 mg Ondansetron HCl (Zofran Inj*) 4 mg IV Q6H PRN PRN Reason: NAUSEA Prochlorperazine Edisylate (Compazine Inj*) 5 mg IV Q6H PRN PRN Reason: NAUSEA/VOMITING Last Admin: 04/27/19 13:30 Dose: 5 mg Vital Signs - 8 hr 04/27/19 04/27/19 04/27/19 10:50 11:15 11:35 Temperature 97.4 F Pulse Rate 66 Respiratory 16 16 16 Rate Blood Pressure 156/76 (mmHg) O2 Sat by Pulse 93 Oximetry 04/27/19 04/27/19 04/27/19 13:29 14:30 15:01 Temperature Pulse Rate Respiratory 16 16 16 Rate Blood Pressure (mmHg) O2 Sat by Pulse Oximetry 04/27/19 04/27/19 04/27/19 15:15 16:00 17:40 Temperature 98 F Pulse Rate 81 Respiratory 14 16 16 Rate Blood Pressure 149/87 (mmHg) O2 Sat by Pulse 91 Oximetry Oxygen Devices in Use Now: None Appearance: Patient is a 64yo female who appears stated age and is sitting in the bed in moderate distress from pain. Eyes: No Scleral Icterus, PERRLA Ears/Nose/Mouth/Throat: Mucous Membranes Moist, - - Large mass visible with scant mucoid discharge in the left sided posterior pharynx. Neck: NL Appearance and Movements; NL JVP, Trachea Midline Respiratory: Symmetrical Chest Expansion and Respiratory Effort, Clear to Auscultation Cardiovascular: NL Sounds; No Murmurs; No JVD, RRR, No Edema Abdominal: NL Sounds; No Tenderness; No Distention, No Hepatosplenomegaly Extremities: No Edema, No Clubbing, Cyanosis Skin: No Rash or Ulcers, No Nodules or Sclerosis Neurological: Alert and Oriented x 3, NL Sensation, NL Muscle Strength and Tone , - - CN II-XII intact. - Nutrition: Malnutrition Diagnosis/Plan Malnutrition Assessment by Registered Dietitian: Malnutrition Assessment Clinical Characteristics Chronic,Severe Malnutrition Assessment: Inadequate Oral Intake - Pt reports poor intake Criteria x1 mo w/ inability to swallow; consumed 0% B this AM - Anticipate meeting <75% nutrient needs x1 mo (severe) Unintentional Weight Loss - Pt reports wt loss x1 mo; current wt 117lb, UBW 135lb x1 mo ago - 13.3% loss x1 mo (severe) Malnutrition Assessment: Nutrient Delivery - Given inability to swallow w Interventions / otherwise usable GI tract and malnourished status, recommend initiating TF as able; see Nutrition Assessment under Patient Care tab for recommendations; will make further recommendations as indicated Texture Modification - Per JUVENILE JUSTICE OFFICER, recommend allowing only small sips of thin liquids and consideration for nutrition support; will monitor tolerance to sips of thin liquids and recommend JUVENILE JUSTICE OFFICER f/u as indicated Malnutrition Assessment: Goals 1) Recommend initiating TF as able 2) Pt will tolerate least restrictive dietary textures w/o further difficulty swallowing 3) Adequate po intake/enteral infusion to support lean body mass and hydration status 4) Improve fluid/electrolyte balance w/ adequate po intake/enteral infusion and repletion PRN 5) Maintain bowel regularity w/ adequate po intake/enteral infusion w/o development of diarrhea/constipation Result Diagrams: 04/26/19 10:53 04/27/19 06:30 Assess/Plan/Problems-Billing Assessment: - Patient Problems (1) Neck mass Current Visit: Yes Status: Acute Code(s): R22.1 - LOCALIZED SWELLING, MASS AND LUMP, NECK SNOMED Code(s): 650154887 Comment: - Likely malignancy, pending pathology, preliminarily thought to be lymphoma - Severe pain, treat with Morphine - Airway not compromised, severe difficulty swallowing. - Appreciate ENT and Oncology input - Possible enlarged LN, No other lesions noted on imaging. - Unable to get MRI at this time due to severe pain with laying flat. (2) Difficulty swallowing Current Visit: Yes Status: Acute Code(s): R13.10 - DYSPHAGIA, UNSPECIFIED SNOMED Code(s): 77090861 Comment: - NG tube inserted by ENT - Start and escalate tube feedings - Continue fluids for now. - Dehydrated on admission with FERNIE, now resolved. (3) DVT prophylaxis Current Visit: Yes Status: Acute Code(s): Z29.9 - ENCOUNTER FOR PROPHYLACTIC MEASURES, UNSPECIFIED SNOMED Code(s): 540676730 Comment: - SCDs with malignancy (4) Full code status Current Visit: Yes Status: Acute Code(s): Z78.9 - OTHER SPECIFIED HEALTH STATUS SNOMED Code(s): 565677848 Status and Disposition: Inpatient for management of Neck Mass.
--- NOTE | 2019-04-27 19:19 | CONS ---
CONSULTATION REPORT: DATE OF CONSULT: 04/27/19 This is for the hospitalist service. BRIEF HISTORY: This 64-year-old presenting to the ED with a large neck mass originating in the oropharynx, extending to the retropharyngeal space, extending past the retropharyngeal space into the deep neck. This is a contiguous mass. Fine needle aspiration is pending result. The patient had significant odynophagia, dysphagia. No airway stridor. No evidence of significant airway compromise. The CT scan was reviewed. On examination, she had mild trismus. Significant oropharyngeal and retropharyngeal mass, which did not appear to be ulcerated on the examination, which was limited. CLINICAL IMPRESSION: The patient with a large mass extending from the tonsil, extending to the retropharyngeal and lateral neck. Pending fine needle aspiration results. I put in an NG tube. I would suggest we start the patient on some NG feeds, with this in mind if the pathology in keeping with something that may require surgical management, this patient should be transferred out of this area for tertiary care management. [id number]/[facility] #: [id number] MTDD
[2019-04-27] MEDS: Ondansetron INJ* 2 MG/ML VIAL IV PRN (23:47)
[2019-04-28] MEDS: NS 0.9% w/ 40 Meq KCL 1000 ML* 1,000 ML IV SCH ×3 (01:03→21:07)
[2019-04-28] MEDS: Morphine INJ* 4 MG/ML 1 ML SYRINGE (NEW SYRINGE VERSION) IV PRN ×7 (03:02→22:30)
[2019-04-28] MEDS: PROCHLORPERAZINE INJ 5 MG/ML 2 ML VIAL IV PRN ×2 (05:17→20:29)
[2019-04-28 06:21] LABS: ABS Lymphocytes 0.8 10^3/ul (1.0-4.8); ABS Monocytes 0.6 10^3/ul (0-0.8); ABS Neutrophils 10.3 10^3/ul (1.5-7.7); Eosinophil % 0.4 %; Hematocrit 34 % (35-47); Hemoglobin 11.3 g/dL (12.0-16.0); Mean Corpuscular HGB Conc 33 g/dL (31-36); Mean Corpuscular Hemoglobin 29 pg (27-31); Mean Corpuscular Volume 87 fL (80-97); Mean Platelet Volume 7.1 fL (7.4-10.4); Platelet Count 269 10^3/uL (150-450); Red Blood Count 3.92 10^6 /uL (3.70-4.87); Red Cell Distribution Width 13 % (10-15); White Blood Count 11.8 10^3/uL (3.5-10.8)
[2019-04-28 06:38] LABS: Albumin 3.5 g/dL (3.2-5.2); Albumin/Globulin Ratio 1.4 (1-3); BUN/Creatinine Ratio 20.6 (8-20); EGFR African American 106.1 (>60); EGFR Non-African American 87.7 (>60); Globulin 2.5 g/dL (2-4); Magnesium 1.5 mg/dL (1.9-2.7); Potassium 4.7 mmol/L (3.5-5.0); Total Bilirubin 0.5 mg/dL (0.2-1.0)
[2019-04-28] MEDS ORDERED: Magnesium Sulfate IV* 3 GM in NS 0.9% 100 ML* 100 ML IVPB ONE (07:01)
[2019-04-28] MEDS: Ondansetron INJ* 2 MG/ML VIAL IV PRN ×2 (10:54→22:30)
--- NOTE | 2019-04-28 11:49 | PN ---
Progress Note - Progress Note Date of Service: 04/28/19 SOAP: Subjective: []Has had PEG tube placed because could not swallow. Her pain is controlled but will be sever in between Morphine. Frustrated she dose not have answers more quickly. No fevers, no nausea. Family is concerned about time to have clear diagnosis. She is considering transfer to [facility] for expert opinion. Potassium Chloride/Sodium Chloride (Ns 0.9% W/ 40 Meq Kcl 1000 Ml*) 1,000 mls @ 75 mls/hr IV PER RATE [facility] Last Admin: 04/28/19 08:38 Dose: 75 mls/hr Morphine Sulfate (Morphine Inj (Syringe)*) 4 mg IV Q2H PRN PRN Reason: SEVERE PAIN Last Admin: 04/28/19 10:54 Dose: 4 mg Ondansetron HCl (Zofran Inj*) 4 mg IV Q6H PRN PRN Reason: NAUSEA Last Admin: 04/28/19 10:54 Dose: 4 mg Prochlorperazine Edisylate (Compazine Inj*) 5 mg IV Q6H PRN PRN Reason: NAUSEA/VOMITING Last Admin: 04/28/19 05:17 Dose: 5 mg Objective: [] Vital Signs Temp Pulse Resp BP Pulse Ox 98.5 F 83 18 152/82 88 04/28/19 07:15 04/28/19 07:15 04/28/19 10:54 04/28/19 07:15 04/28/19 07:15 HEENT: Mass on left neck, jaw constrained. J tube CTA RRR S1S2 +BS NT ND Ext w/o edema. CT neck and C/A/P. The mass in the neck is more clearly seen but unchanged from prior CT scan. There are small LN on L side. No additional disease in C/A/P , normal spleen size. No pulm infiltrate or lesions. Assessment: []64 year old with rapidly expanding neck mass, FNA with malignancy. Ddx includes aggressive lymphoma, small cell cancer, poorly differentiated squamous cell cancer, nasopharyngeal carcinoma. Treatment will be chemotherapy or radiation and chemotherapy based on final diagnosis. I do not see a role for surgery. Extensive discussion with family. Will have additional information on Tuesday or Tuesday, likely Tuesday. Time to diagnosis is based on processing time of biopsy and will be the same anywhere. They are considering a larger medical center. Transfer by ambulance will be private pay. I feel therapy will be similar at all centers. That said my advice is to be where she would be comfortable. I am happy to facilitate transfer transfer to [place] or [place]. Plan: []1. Pain. - Fentanyl 12.5 md and continue prn Morphine 2. Nutrition. Agree with J tube and feeds. 3. Will follow closely for pathology results.
[2019-04-28] MEDS ORDERED: fentaNYL PATCH 12 MCG/HR TRANSDERM SCH (12:00)
--- NOTE | 2019-04-28 13:51 | PN ---
Subjective Date of Service: 04/28/19 Interval History: Patient continues to have pain from her neck and occiput. Patient is not drooling, but does feel that is difficult and painful to swallow and hasn't been able to take very much in by mouth. Patient was briefly hypoxic and required oxygen, but this then resolved. Patient denies CP, SOB, dizziness, N/V , abdominal pain, or diarrhea. Family History: Unchanged from Admission Social History: Unchanged from Admission Past Medical History: Unchanged from Admission Objective Active Medications: Fentanyl (Duragesic Patch 12 Mcg/Hr *) 12 mcg TRANSDERM Q72H [facility] Last Admin: 04/28/19 12:23 Dose: 12 mcg Potassium Chloride/Sodium Chloride (Ns 0.9% W/ 40 Meq Kcl 1000 Ml*) 1,000 mls @ 75 mls/hr IV PER RATE [facility] Last Admin: 04/28/19 08:38 Dose: 75 mls/hr Morphine Sulfate (Morphine Inj (Syringe)*) 4 mg IV Q2H PRN PRN Reason: SEVERE PAIN Last Admin: 04/28/19 10:54 Dose: 4 mg Ondansetron HCl (Zofran Inj*) 4 mg IV Q6H PRN PRN Reason: NAUSEA Last Admin: 04/28/19 10:54 Dose: 4 mg Pharmacy Profile Note (Fentanyl Patch Check Q Shift) 1 note FOLLOW UP 0700, 1900 [facility] Prochlorperazine Edisylate (Compazine Inj*) 5 mg IV Q6H PRN PRN Reason: NAUSEA/VOMITING Last Admin: 04/28/19 05:17 Dose: 5 mg Vital Signs - 8 hr 04/28/19 04/28/19 04/28/19 07:15 08:00 08:36 Temperature 98.5 F Pulse Rate 83 Respiratory 16 16 18 Rate Blood Pressure 152/82 (mmHg) O2 Sat by Pulse 88 Oximetry 04/28/19 04/28/19 04/28/19 10:54 11:15 12:14 Temperature 98.5 F Pulse Rate 84 Respiratory 18 15 5 Rate Blood Pressure 174/96 (mmHg) O2 Sat by Pulse 100 Oximetry 04/28/19 12:23 Temperature Pulse Rate Respiratory 16 Rate Blood Pressure (mmHg) O2 Sat by Pulse Oximetry Oxygen Devices in Use Now: None Appearance: Patient is a 64yo female who appears stated age and is sitting in the bed in moderate distress from pain. Eyes: No Scleral Icterus, PERRLA Ears/Nose/Mouth/Throat: Mucous Membranes Moist, - - Large impinging mass on left side of mouth. Neck: NL Appearance and Movements; NL JVP, Trachea Midline Respiratory: Symmetrical Chest Expansion and Respiratory Effort, - - Slight rales in LLL Cardiovascular: NL Sounds; No Murmurs; No JVD, RRR, No Edema Abdominal: NL Sounds; No Tenderness; No Distention, No Hepatosplenomegaly Lymphatic: No Cervical Adenopathy Extremities: No Edema, No Clubbing, Cyanosis Skin: No Rash or Ulcers, No Nodules or Sclerosis Neurological: Alert and Oriented x 3, NL Sensation, NL Muscle Strength and Tone , - - CN II-XII intact. - Nutrition: Malnutrition Diagnosis/Plan Malnutrition Assessment by Registered Dietitian: Malnutrition Assessment Clinical Characteristics Chronic,Severe Malnutrition Assessment: Inadequate Oral Intake - Pt reports poor intake Criteria x1 mo w/ inability to swallow; consumed 0% B this AM - Anticipate meeting <75% nutrient needs x1 mo (severe) Unintentional Weight Loss - Pt reports wt loss x1 mo; current wt 117lb, UBW 135lb x1 mo ago - 13.3% loss x1 mo (severe) Malnutrition Assessment: Nutrient Delivery - Given inability to swallow w Interventions / otherwise usable GI tract and malnourished status, recommend initiating TF as able; see Nutrition Assessment under Patient Care tab for recommendations; will make further recommendations as indicated Texture Modification - Per GINNER, recommend allowing only small sips of thin liquids and consideration for nutrition support; will monitor tolerance to sips of thin liquids and recommend GINNER f/u as indicated Malnutrition Assessment: Goals 1) Recommend initiating TF as able 2) Pt will tolerate least restrictive dietary textures w/o further difficulty swallowing 3) Adequate po intake/enteral infusion to support lean body mass and hydration status 4) Improve fluid/electrolyte balance w/ adequate po intake/enteral infusion and repletion PRN 5) Maintain bowel regularity w/ adequate po intake/enteral infusion w/o development of diarrhea/constipation Result Diagrams: 04/28/19 06:12 04/28/19 06:12 Microbiology and Other Data: Microbiology 04/27/19 04:05 Urine Culture - Final Urine No Growth (<1,000 CFU/mL) Assess/Plan/Problems-Billing Assessment: - Patient Problems (1) Neck mass Current Visit: Yes Status: Acute Code(s): R22.1 - LOCALIZED SWELLING, MASS AND LUMP, NECK SNOMED Code(s): 558878412 Comment: - Likely malignancy, pending pathology, preliminarily thought to be lymphoma - Severe pain, treat with Morphine and fentanyl patch - Airway not compromised, severe difficulty swallowing. - NG tube placed with tube feedings. - Appreciate ENT and Oncology input - Possible enlarged LN, No other lesions noted on imaging. - Unable to get MRI at this time due to severe pain with laying flat. - No current indication for steroids or empiric disease directed treatment. (2) Difficulty swallowing Current Visit: Yes Status: Acute Code(s): R13.10 - DYSPHAGIA, UNSPECIFIED SNOMED Code(s): 79443583 Comment: - NG tube inserted by ENT - Start and escalate tube feedings - Continue fluids for now. - Dehydrated on admission with FERNIE, now resolved. (3) DVT prophylaxis Current Visit: Yes Status: Acute Code(s): Z29.9 - ENCOUNTER FOR PROPHYLACTIC MEASURES, UNSPECIFIED SNOMED Code(s): 242677943 Comment: - SCDs with malignancy (4) Full code status Current Visit: Yes Status: Acute Code(s): Z78.9 - OTHER SPECIFIED HEALTH STATUS SNOMED Code(s): 503053664 Status and Disposition: Inpatient for management of Neck Mass.
[2019-04-28 16:29] LABS: Beta 2 Microglobulin 1.76 mcg/mL
[2019-04-28] MEDS ORDERED: fentaNYL PATCH 25 MCG/HR TRANSDERM SCH (19:00)
[2019-04-28] MEDS: fentaNYL Patch Check Q Shift 1 NOTE FOLLOW UP SCH (19:14)
[2019-04-29] MEDS: Morphine INJ* 4 MG/ML 1 ML SYRINGE (NEW SYRINGE VERSION) IV PRN ×9 (00:32→22:50)
[2019-04-29] MEDS: PROCHLORPERAZINE INJ 5 MG/ML 2 ML VIAL IV PRN (02:35)
[2019-04-29 06:47] LABS: ABS Eosinophils 0.2 10^3/ul (0-0.6); ABS Lymphocytes 0.7 10^3/ul (1.0-4.8); ABS Monocytes 0.5 10^3/ul (0-0.8); ABS Neutrophils 9.5 10^3/ul (1.5-7.7); Eosinophil % 1.4 %; Hematocrit 33 % (35-47); Hemoglobin 10.9 g/dL (12.0-16.0); Lymphocyte % 6.7 %; Mean Corpuscular HGB Conc 33 g/dL (31-36); Mean Corpuscular Hemoglobin 29 pg (27-31); Mean Corpuscular Volume 87 fL (80-97); Nucleated Red Blood Cells % 0.1; Platelet Count 269 10^3/uL (150-450); Red Blood Count 3.77 10^6 /uL (3.70-4.87); Red Cell Distribution Width 13 % (10-15); White Blood Count 10.9 10^3/uL (3.5-10.8)
[2019-04-29 06:55] LABS: BUN/Creatinine Ratio 13.8 (8-20); Calcium 7.4 mg/dL (8.6-10.3); EGFR African American 111.8 (>60); EGFR Non-African American 92.4 (>60); Magnesium 1.7 mg/dL (1.9-2.7); Potassium 4.5 mmol/L (3.5-5.0)
[2019-04-29] MEDS: fentaNYL Patch Check Q Shift 1 NOTE FOLLOW UP SCH ×3 (07:06→19:12)
[2019-04-29] MEDS ORDERED: Magnesium Sulfate 2 GM IV* 2 GM/50 ML BAG IVPB ONE (07:45)
[2019-04-29] MEDS: NS 0.9% w/ 40 Meq KCL 1000 ML* 1,000 ML IV SCH (10:03)
--- NOTE | 2019-04-29 15:29 | PN ---
Subjective Date of Service: 04/29/19 Interval History: Patient states her pain is still only moderately controlled with Fentanyl patch and Morphine, but that it is tolerable and she doesn't want any more pain medication at this time. Patient denies sedation, SOB, CP, Cough, N/V, or other pain. Family History: Unchanged from Admission Social History: Unchanged from Admission Past Medical History: Unchanged from Admission Objective Active Medications: Enoxaparin Sodium (Lovenox(*)) 40 mg SUBCUT Q24H [facility] Fentanyl (Duragesic Patch 25 Mcg/Hr*) 25 mcg TRANSDERM Q72H [facility] Last Admin: 04/28/19 19:12 Dose: 25 mcg Potassium Chloride/Sodium Chloride (Ns 0.9% W/ 40 Meq Kcl 1000 Ml*) 1,000 mls @ 75 mls/hr IV PER RATE [facility] Last Admin: 04/29/19 10:03 Dose: 75 mls/hr Morphine Sulfate (Morphine Inj (Syringe)*) 4 mg IV Q2H PRN PRN Reason: SEVERE PAIN Last Admin: 04/29/19 14:33 Dose: 4 mg Ondansetron HCl (Zofran Inj*) 4 mg IV Q6H PRN PRN Reason: NAUSEA Last Admin: 04/28/19 22:30 Dose: 4 mg Pharmacy Profile Note (Fentanyl Patch Check Q Shift) 1 note FOLLOW UP 0700, 1900 [facility] Last Admin: 04/29/19 07:06 Dose: 1 note Prochlorperazine Edisylate (Compazine Inj*) 5 mg IV Q6H PRN PRN Reason: NAUSEA/VOMITING Last Admin: 04/29/19 02:35 Dose: 5 mg Vital Signs - 8 hr 04/29/19 04/29/19 04/29/19 08:00 09:00 11:15 Temperature 97.9 F Pulse Rate 71 Respiratory 18 18 12 Rate Blood Pressure 155/87 (mmHg) O2 Sat by Pulse 100 Oximetry 04/29/19 04/29/19 04/29/19 11:47 14:16 14:33 Temperature Pulse Rate Respiratory 18 16 18 Rate Blood Pressure (mmHg) O2 Sat by Pulse Oximetry Oxygen Devices in Use Now: OxyMask Appearance: Patient is a 64yo female who appears stated age and is sitting in the bed in [facility]. Eyes: No Scleral Icterus, PERRLA Ears/Nose/Mouth/Throat: NL Teeth, Lips, Gums, Mucous Membranes Moist, - - Large Mass in Posterior Pharynx. Neck: NL Appearance and Movements; NL JVP, Trachea Midline, - - Mass on Left side of neck. Respiratory: Symmetrical Chest Expansion and Respiratory Effort, Clear to Auscultation Cardiovascular: NL Sounds; No Murmurs; No JVD, RRR, No Edema Abdominal: NL Sounds; No Tenderness; No Distention, No Hepatosplenomegaly Extremities: No Edema, No Clubbing, Cyanosis Skin: No Rash or Ulcers, No Nodules or Sclerosis Neurological: Alert and Oriented x 3, NL Sensation, NL Muscle Strength and Tone , - - CN II-XII intact. - Nutrition: Malnutrition Diagnosis/Plan Malnutrition Assessment by Registered Dietitian: Malnutrition Assessment Clinical Characteristics Chronic,Severe Malnutrition Assessment: Inadequate Oral Intake - Pt reports poor intake Criteria x1 mo w/ inability to swallow; consumed 0% B this AM - Anticipate meeting <75% nutrient needs x1 mo (severe) Unintentional Weight Loss - Pt reports wt loss x1 mo; current wt 117lb, UBW 135lb x1 mo ago - 13.3% loss x1 mo (severe) Malnutrition Assessment: Nutrient Delivery - Given inability to swallow w Interventions / otherwise usable GI tract and malnourished status, recommend initiating TF as able; see Nutrition Assessment under Patient Care tab for recommendations; will make further recommendations as indicated Texture Modification - Per MINING TEACHER, recommend allowing only small sips of thin liquids and consideration for nutrition support; will monitor tolerance to sips of thin liquids and recommend MINING TEACHER f/u as indicated Malnutrition Assessment: Goals 1) Recommend initiating TF as able 2) Pt will tolerate least restrictive dietary textures w/o further difficulty swallowing 3) Adequate po intake/enteral infusion to support lean body mass and hydration status 4) Improve fluid/electrolyte balance w/ adequate po intake/enteral infusion and repletion PRN 5) Maintain bowel regularity w/ adequate po intake/enteral infusion w/o development of diarrhea/constipation Result Diagrams: 04/29/19 05:42 04/29/19 05:42 Microbiology and Other Data: Microbiology 04/27/19 04:05 Urine Culture - Final Urine No Growth (<1,000 CFU/mL) Assess/Plan/Problems-Billing Assessment: Patient is a 64yo female with no significant PMH who was found to have a neck mass consistent with an aggressive malignancy and is currently awaiting pathology and treatment recommendations. - Patient Problems (1) Neck mass Current Visit: Yes Status: Acute Code(s): R22.1 - LOCALIZED SWELLING, MASS AND LUMP, NECK SNOMED Code(s): 082566050 Comment: - Likely malignancy, pending pathology, preliminarily thought to be lymphoma, though per Onc more likely to be non-squamous cell head and neck cancer. - Severe pain, treat with Morphine and fentanyl patch - Airway not compromised, severe difficulty swallowing. - NG tube placed with tube feedings. - Appreciate ENT and Oncology input - Possible enlarged LN, No other lesions noted on imaging. - Unable to get MRI at this time due to severe pain with laying flat. - No current indication for steroids or empiric disease directed treatment. - Patient is interested in second opinion from [facility] when pathology available. (2) Hypoxia Current Visit: Yes Status: Acute Code(s): R09.02 - HYPOXEMIA SNOMED Code(s ): 245173169 Comment: - Patient is persistently hypoxic, airway is patent - Likely combination of narcotics and possible aspiration pneumonitis from dysphagia. - No signs of fluid overload and no indication currently for antibiotics. (3) Difficulty swallowing Current Visit: Yes Status: Acute Code(s): R13.10 - DYSPHAGIA, UNSPECIFIED SNOMED Code(s): 49508491 Comment: - NG tube inserted by ENT - Start and escalate tube feedings, now at 40ml/hr - Stop Fluids - Dehydrated on admission with FERNIE, now resolved. (4) DVT prophylaxis Current Visit: Yes Status: Acute Code(s): Z29.9 - ENCOUNTER FOR PROPHYLACTIC MEASURES, UNSPECIFIED SNOMED Code(s): 977055382 Comment: - Lovenox subq (5) Full code status Current Visit: Yes Status: Acute Code(s): Z78.9 - OTHER SPECIFIED HEALTH STATUS SNOMED Code(s): 706442997 Status and Disposition: Inpatient for management of Neck Mass.
[2019-04-29] MEDS: Enoxaparin(*) 40 MG/0.4 ML SYR SUBCUT SCH (16:13)
[2019-04-29] MEDS ORDERED: fentaNYL PATCH 12 MCG/HR TRANSDERM SCH (19:00)
[2019-04-29] MEDS: fentaNYL PATCH 12 MCG/HR TRANSDERM SCH (19:08)
[2019-04-29] MEDS: fentaNYL PATCH 25 MCG/HR TRANSDERM SCH (19:08)
[2019-04-30] MEDS: Morphine INJ* 4 MG/ML 1 ML SYRINGE (NEW SYRINGE VERSION) IV PRN ×10 (00:58→22:33)
[2019-04-30] MEDS: Ondansetron INJ* 2 MG/ML VIAL IV PRN ×3 (03:15→20:05)
[2019-04-30] MEDS: amLODIPine TAB* 5 MG PO SCH ×2 (03:58→17:43)
[2019-04-30 06:32] LABS: ABS Eosinophils 0.1 10^3/ul (0-0.6); ABS Lymphocytes 0.8 10^3/ul (1.0-4.8); ABS Monocytes 0.5 10^3/ul (0-0.8); ABS Neutrophils 7.2 10^3/ul (1.5-7.7); Eosinophil % 0.9 %; Hematocrit 33 % (35-47); Hemoglobin 10.9 g/dL (12.0-16.0); Lymphocyte % 8.9 %; Mean Corpuscular HGB Conc 33 g/dL (31-36); Mean Corpuscular Hemoglobin 29 pg (27-31); Mean Corpuscular Volume 88 fL (80-97); Mean Platelet Volume 7.5 fL (7.4-10.4); Nucleated Red Blood Cells % 0.1; Platelet Count 281 10^3/uL (150-450); Red Blood Count 3.79 10^6 /uL (3.70-4.87); Red Cell Distribution Width 13 % (10-15); White Blood Count 8.5 10^3/uL (3.5-10.8)
[2019-04-30 06:46] LABS: BUN/Creatinine Ratio 15.8 (8-20); Calcium 7.1 mg/dL (8.6-10.3); EGFR Non-African American 107.5 (>60); Magnesium 1.7 mg/dL (1.9-2.7); Phosphorus 1.4 mg/dL (2.5-5.0); Potassium 4.1 mmol/L (3.5-5.0)
[2019-04-30] MEDS: fentaNYL Patch Check Q Shift 1 NOTE FOLLOW UP SCH ×4 (06:52→19:26)
[2019-04-30] MEDS ORDERED: Magnesium Sulfate IV* 3 GM in NS 0.9% 100 ML* 100 ML IVPB ONE (07:58)
[2019-04-30] MEDS ORDERED: Potassium Phosphate IV* 10 MMOLE in NS 0.9% 250 ML* 250 ML IVPB ONE (07:59)
[2019-04-30] MEDS ORDERED: NS 0.9% 250 ML* 250 ML ONE (11:11)
--- NOTE | 2019-04-30 12:17 | PN ---
Subjective Date of Service: 04/30/19 Interval History: Patient is feeling better today. Patient is still needing a significant amount of morphine, but is feeling overall more comfortable. Patient denies cough, SOB , N/V, abdominal pain, diarrhea, or other pain. Family History: Unchanged from Admission Social History: Unchanged from Admission Past Medical History: Unchanged from Admission Objective Active Medications: Amlodipine Besylate (Norvasc Tab*) 2.5 mg PO QPM [facility] Last Admin: 04/30/19 03:58 Dose: 2.5 mg Enoxaparin Sodium (Lovenox(*)) 40 mg SUBCUT Q24H [facility] Last Admin: 04/29/19 16:13 Dose: 40 mg Fentanyl (Duragesic Patch 25 Mcg/Hr*) 25 mcg TRANSDERM Q72H [facility] Last Admin: 04/29/19 19:08 Dose: 25 mcg Fentanyl (Duragesic Patch 12 Mcg/Hr *) 12 mcg TRANSDERM Q72H [facility] Last Admin: 04/29/19 19:08 Dose: 12 mcg Potassium Phosphate 10 mmole/ (Sodium Chloride) 253.3333 mls @ 42 mls/hr IVPB ONCE ONE Stop: 04/30/19 14:00 Last Admin: 04/30/19 11:57 Dose: 42 mls/hr Morphine Sulfate (Morphine Inj (Syringe)*) 4 mg IV Q2H PRN PRN Reason: SEVERE PAIN Last Admin: 04/30/19 11:14 Dose: 4 mg Ondansetron HCl (Zofran Inj*) 4 mg IV Q6H PRN PRN Reason: NAUSEA Last Admin: 04/28/19 22:30 Dose: 4 mg Pharmacy Profile Note (Fentanyl Patch Check Q Shift) 1 note FOLLOW UP 1899 [facility] Last Admin: 04/30/19 06:52 Dose: 1 note Pharmacy Profile Note (Fentanyl Patch Check Q Shift) 1 note FOLLOW UP 1899 [facility] Last Admin: 04/30/19 06:52 Dose: 1 note Prochlorperazine Edisylate (Compazine Inj*) 5 mg IV Q6H PRN PRN Reason: NAUSEA/VOMITING Last Admin: 04/29/19 02:35 Dose: 5 mg Vital Signs - 8 hr 04/30/19 04/30/19 04/30/19 04:37 06:53 07:15 Temperature 97.8 F Pulse Rate 67 Respiratory 20 22 17 Rate Blood Pressure 160/81 (mmHg) O2 Sat by Pulse 99 Oximetry 04/30/19 04/30/19 04/30/19 07:40 08:00 09:10 Temperature Pulse Rate Respiratory 18 16 16 Rate Blood Pressure (mmHg) O2 Sat by Pulse Oximetry 04/30/19 04/30/19 10:00 11:14 Temperature Pulse Rate Respiratory 16 16 Rate Blood Pressure (mmHg) O2 Sat by Pulse Oximetry Oxygen Devices in Use Now: OxyMask Appearance: Patient is a 64yo female who appears stated age and is sitting in the bed in [facility]. Eyes: No Scleral Icterus, PERRLA Ears/Nose/Mouth/Throat: NL Teeth, Lips, Gums, Mucous Membranes Moist, - - Large Mass on left side of pharynx. Neck: Trachea Midline, - - Large mass on left side of neck. Respiratory: Symmetrical Chest Expansion and Respiratory Effort, Clear to Auscultation Cardiovascular: NL Sounds; No Murmurs; No JVD, RRR, No Edema Abdominal: NL Sounds; No Tenderness; No Distention, No Hepatosplenomegaly Lymphatic: No Cervical Adenopathy Extremities: No Edema, No Clubbing, Cyanosis Skin: No Rash or Ulcers, No Nodules or Sclerosis Neurological: Alert and Oriented x 3, NL Sensation, NL Muscle Strength and Tone , - - CN II-XII intact. - Nutrition: Malnutrition Diagnosis/Plan Malnutrition Assessment by Registered Dietitian: Malnutrition Assessment Clinical Characteristics Chronic,Severe Malnutrition Assessment: Inadequate Oral Intake - Pt reports poor intake Criteria x1 mo w/ inability to swallow; consumed 0% B this AM - Anticipate meeting <75% nutrient needs x1 mo (severe) Unintentional Weight Loss - Pt reports wt loss x1 mo; current wt 117lb, UBW 135lb x1 mo ago - 13.3% loss x1 mo (severe) Malnutrition Assessment: Nutrient Delivery - Given inability to swallow w Interventions / otherwise usable GI tract and malnourished status, recommend initiating TF as able; see Nutrition Assessment under Patient Care tab for recommendations; will make further recommendations as indicated Texture Modification - Per STRAINER TENDER, recommend allowing only small sips of thin liquids and consideration for nutrition support; will monitor tolerance to sips of thin liquids and recommend STRAINER TENDER f/u as indicated Malnutrition Assessment: Goals 1) Recommend initiating TF as able 2) Pt will tolerate least restrictive dietary textures w/o further difficulty swallowing 3) Adequate po intake/enteral infusion to support lean body mass and hydration status 4) Improve fluid/electrolyte balance w/ adequate po intake/enteral infusion and repletion PRN 5) Maintain bowel regularity w/ adequate po intake/enteral infusion w/o development of diarrhea/constipation Result Diagrams: 04/30/19 06:14 04/30/19 06:14 Microbiology and Other Data: Microbiology 04/27/19 04:05 Urine Culture - Final Urine No Growth (<1,000 CFU/mL) Assess/Plan/Problems-Billing Assessment: Patient is a 64yo female with no significant PMH who was found to have a neck mass consistent with an aggressive malignancy and is currently awaiting pathology and treatment recommendations. - Patient Problems (1) Neck mass Current Visit: Yes Status: Acute Code(s): R22.1 - LOCALIZED SWELLING, MASS AND LUMP, NECK SNOMED Code(s): 857764417 Comment: - Likely malignancy, Pathology not diagnostic, will need incisional biopsy. - Per Onc more likely to be non-squamous cell head and neck cancer. - Severe pain, treat with Morphine and fentanyl patch - Airway not compromised, severe difficulty swallowing. - NG tube placed with tube feedings. - Appreciate ENT and Oncology input - Possible enlarged LN, No other lesions noted on imaging. - Unable to get MRI at this time due to severe pain with laying flat. - No current indication for steroids or empiric disease directed treatment. - Patient is interested in second opinion from [facility] when pathology available. Unable to transfer at this time. (2) Hypoxia Current Visit: Yes Status: Acute Code(s): R09.02 - HYPOXEMIA SNOMED Code(s ): 385982583 Comment: - Patient is persistently hypoxic, airway is patent - Likely combination of narcotics and possible aspiration pneumonitis from dysphagia. - No signs of fluid overload and no indication currently for antibiotics. (3) Difficulty swallowing Current Visit: Yes Status: Acute Code(s): R13.10 - DYSPHAGIA, UNSPECIFIED SNOMED Code(s): 71387412 Comment: - NG tube inserted by ENT - Start and escalate tube feedings, now at 40ml/hr - Stop Fluids - Dehydrated on admission with FERNIE, now resolved. - Nutrition Consult. (4) DVT prophylaxis Current Visit: Yes Status: Acute Code(s): Z29.9 - ENCOUNTER FOR PROPHYLACTIC MEASURES, UNSPECIFIED SNOMED Code(s): 182786379 Comment: - Lovenox subq (5) Full code status Current Visit: Yes Status: Acute Code(s): Z78.9 - OTHER SPECIFIED HEALTH STATUS SNOMED Code(s): 448294840 Status and Disposition: Inpatient for management of Neck Mass.
[2019-04-30] MEDS: Enoxaparin(*) 40 MG/0.4 ML SYR SUBCUT SCH (16:02)
[2019-04-30] MEDS: PROCHLORPERAZINE INJ 5 MG/ML 2 ML VIAL IV PRN (17:48)
[2019-05-01] MEDS: PROCHLORPERAZINE INJ 5 MG/ML 2 ML VIAL IV PRN ×3 (00:32→22:41)
[2019-05-01] MEDS: Morphine INJ* 4 MG/ML 1 ML SYRINGE (NEW SYRINGE VERSION) IV PRN ×10 (00:34→22:46)
[2019-05-01] MEDS: Ondansetron INJ* 2 MG/ML VIAL IV PRN ×3 (03:54→20:40)
[2019-05-01 06:42] LABS: ABS Lymphocytes 0.7 10^3/ul (1.0-4.8); ABS Monocytes 0.6 10^3/ul (0-0.8); ABS Neutrophils 10.5 10^3/ul (1.5-7.7); Eosinophil % 0.4 %; Hematocrit 35 % (35-47); Hemoglobin 11.7 g/dL (12.0-16.0); Lymphocyte % 5.8 %; Mean Corpuscular HGB Conc 33 g/dL (31-36); Mean Corpuscular Hemoglobin 28 pg (27-31); Mean Corpuscular Volume 86 fL (80-97); Mean Platelet Volume 7.1 fL (7.4-10.4); Platelet Count 311 10^3/uL (150-450); Red Cell Distribution Width 13 % (10-15); White Blood Count 11.8 10^3/uL (3.5-10.8)
[2019-05-01 06:58] LABS: BUN/Creatinine Ratio 17.5 (8-20); Calcium 6.8 mg/dL (8.6-10.3); EGFR Non-African American 107.5 (>60); Magnesium 1.6 mg/dL (1.9-2.7); Phosphorus 1.4 mg/dL (2.5-5.0); Potassium 3.5 mmol/L (3.5-5.0)
[2019-05-01] MEDS: fentaNYL Patch Check Q Shift 1 NOTE FOLLOW UP SCH ×4 (07:43→19:04)
[2019-05-01] MEDS ORDERED: Magnesium Sulfate 2 GM IV* 2 GM/50 ML BAG IVPB ONE (09:28)
[2019-05-01] MEDS ORDERED: Potassium Phosphate IV* 10 MMOLE in NS 0.9% 250 ML* 250 ML IVPB ONE (09:28)
[2019-05-01] MEDS: Magnesium Oxide TAB* 400 MG PO SCH ×2 (10:40→20:39)
[2019-05-01] MEDS: Potassium Chloride* LIQUID 20 MEQ/15 ML UDC PO SCH ×2 (10:42→20:41)
[2019-05-01 12:54] LABS: Albumin 3.1 g/dL (3.4-4.7); Albumin/Globulin Ratio 1.07; Gamma Globulin 0.9 g/dL (0.6-1.6)
[2019-05-01] MEDS: Potassium & Sodium Phos 250MG* = 1 PACKET PO SCH ×3 (13:28→21:21)
--- NOTE | 2019-05-01 13:38 | CONS ---
ANESTHESIA CONSULTATION REPORT: DATE OF CONSULT: 05/01/19 HISTORY OF PRESENT ILLNESS: The patient is an unfortunate 64-year-old female who has a large 6.3 cm mass in the left parapharyngeal space. There have been issues with it trying to get biopsy. They did a fine needle aspirate of the lymph node which was nondiagnostic. So, there was question whether she would be a candidate for general anesthesia and an open biopsy with Dr. Torres tomorrow. The concern has been airway management and whether she was a candidate to have an endotracheal tube for general anesthesia given the large nature of the mass and the possibility of not being able to secure her airway for the procedure. I did have a chance to review the CT scan with Dr. Almonte showing the 6.3 cm necrotic mass within the left parapharyngeal space. I also talked to the patient and examined her airway and at this point, the patient has minimal mouth opening and is unable to really manage her secretions and has an NG tube in place that Dr. Torres had difficulties placing this week. The concern is that the patient would need an awake tracheostomy prior to undergoing general anesthetic because after my exam and review of the CT scan, I do not feel it is going to be possible to place an endotracheal tube nasally or orally in this patient without compromising her airway. My recommendation after reviewing the CT scan with Dr. Almonte who also recommended an ultrasound-guided biopsy of the mass at this point so they could get a tissue diagnosis. I explained this to the patient and her and my recommendation at this point as stated above is to not move forward with a general anesthetic unless they are willing to undergo an awake tracheostomy prior to the general anesthetic so as to assure her airway is secured for the procedure. I did speak to the hospitalist as well as Dr. Torres about my recommendations and the patient appears to want to move forward with the ultrasound-guided biopsy without a general anesthetic first. If there are any questions, feel free to contact me. [id number]/[facility] #: [id number] JONELLE
[2019-05-01] MEDS: Enoxaparin(*) 40 MG/0.4 ML SYR SUBCUT SCH (16:17)
[2019-05-01] MEDS: amLODIPine TAB* 5 MG PO SCH (16:23)
--- NOTE | 2019-05-01 17:15 | PN ---
Subjective Date of Service: 05/01/19 Interval History: Patient was seen on multiple occasion today discuss her current active medical care, discuss future care plan regarding her neck mass and possible biopsy approach. I kept the at bedside informed throughout the day and throughout all decisions. Case also was discussed extensively with Anesthesia Dr. Bejarano, Interventional Radiology Dr. Almonte and ENT Dr. Torres! At present time, the patient is a very high risk for elective airway intubations as per anesthesia. I reviewed the CT of her neck with Dr. Almonte and he did confirm the presence of a large left oropharynx mass with significant narrowing of her pharynx and uvula deviation to the right making intubations very difficulty. At one time it was suggested that the mass can be approached via US guided biopsy rather than general anesthesia. I was against this approach for two main reasons. 1. Possible post biopsy swelling and worsening pharyngeal edema which can exacerbate her already compromised upper airway and arrest 2. Given the fact that the patient and her did make it very clear to every provider including myself that their wishes is to be transferred to [facility], It is medically unsafe to transfer her out with an already compromised airway as she may have high risk of deterioration during her transfer. Unfortunately, [facility] would not accept her with out tissue biopsy. Therefore, I did recommend to proceed with tracheostomy and followed by incisional biopsy. Will follow up with [facility] post biopsy. Both and patient are made aware of all the above discussion and in agreement to pursue the tracheostomy and biopsy. planned for tomorrow Social History: Unchanged from Admission Past Medical History: Unchanged from Admission Objective Active Medications: Amlodipine Besylate (Norvasc Tab*) 5 mg PO QPM [facility] Last Admin: 05/01/19 16:23 Dose: 5 mg Enoxaparin Sodium (Lovenox(*)) 40 mg SUBCUT Q24H [facility] Last Admin: 05/01/19 16:17 Dose: Not Given Fentanyl (Duragesic Patch 25 Mcg/Hr*) 25 mcg TRANSDERM Q72H [facility] Last Admin: 04/29/19 19:08 Dose: 25 mcg Fentanyl (Duragesic Patch 12 Mcg/Hr *) 12 mcg TRANSDERM Q72H [facility] Last Admin: 04/29/19 19:08 Dose: 12 mcg Hydralazine HCl (Apresoline Iv*) 5 mg IV SLOW PU Q6H PRN PRN Reason: BLOOD PRESSURE Magnesium Oxide (Magox 400 Tab*) 800 mg PO BID [facility] Last Admin: 05/01/19 10:40 Dose: 800 mg Morphine Sulfate (Morphine Inj (Syringe)*) 4 mg IV Q2H PRN PRN Reason: SEVERE PAIN Last Admin: 05/01/19 16:24 Dose: 4 mg Ondansetron HCl (Zofran Inj*) 4 mg IV Q6H PRN PRN Reason: NAUSEA Last Admin: 05/01/19 08:32 Dose: 4 mg Pharmacy Profile Note (Fentanyl Patch Check Q Shift) 1 note FOLLOW UP 0700, 1900 [facility] Last Admin: 05/01/19 07:43 Dose: 1 note Pharmacy Profile Note (Fentanyl Patch Check Q Shift) 1 note FOLLOW UP 0700, 1900 [facility] Last Admin: 05/01/19 07:43 Dose: 1 note Potassium Chloride (Potassium Chloride Liquid) 20 meq PO BID [facility] Last Admin: 05/01/19 10:42 Dose: 20 meq Potassium Phos/Sodium Phos (Neutra Phos 250 Mg Rodo*) 250 mg PO QID [facility] Last Admin: 05/01/19 16:26 Dose: 250 mg Prochlorperazine Edisylate (Compazine Inj*) 5 mg IV Q6H PRN PRN Reason: NAUSEA/VOMITING Last Admin: 05/01/19 16:24 Dose: 5 mg Vital Signs - 8 hr 05/01/19 05/01/19 05/01/19 09:49 11:15 11:55 Respiratory 16 16 16 Rate 05/01/19 05/01/19 05/01/19 12:55 14:22 15:35 Respiratory 16 16 16 Rate 05/01/19 16:24 Respiratory 16 Rate Oxygen Devices in Use Now: OxyMask Appearance: awake, alert. no distress. no fever or chills Eyes: No Scleral Icterus Ears/Nose/Mouth/Throat: Mucous Membranes Moist, - - pediatric size NGT in place Neck: - - left mastoid mass tender. drooling. I did not appreciate any stridor Respiratory: Symmetrical Chest Expansion and Respiratory Effort Cardiovascular: NL Sounds; No Murmurs; No JVD, No Edema Abdominal: NL Sounds; No Tenderness; No Distention Extremities: No Edema - Nutrition: Malnutrition Diagnosis/Plan Malnutrition Assessment by Registered Dietitian: Malnutrition Assessment Clinical Characteristics Chronic,Severe Malnutrition Assessment: Inadequate Oral Intake - Pt reports poor intake Criteria x1 mo w/ inability to swallow; consumed 0% B this AM - Anticipate meeting <75% nutrient needs x1 mo (severe) Unintentional Weight Loss - Pt reports wt loss x1 mo; current wt 117lb, UBW 135lb x1 mo ago - 13.3% loss x1 mo (severe) Malnutrition Assessment: Nutrient Delivery - Given inability to swallow w Interventions / otherwise usable GI tract and malnourished status, recommend initiating TF as able; see Nutrition Assessment under Patient Care tab for recommendations; will make further recommendations as indicated Texture Modification - Per CRM MANAGER, recommend allowing only small sips of thin liquids and consideration for nutrition support; will monitor tolerance to sips of thin liquids and recommend CRM MANAGER f/u as indicated Malnutrition Assessment: Goals 1) Recommend initiating TF as able 2) Pt will tolerate least restrictive dietary textures w/o further difficulty swallowing 3) Adequate po intake/enteral infusion to support lean body mass and hydration status 4) Improve fluid/electrolyte balance w/ adequate po intake/enteral infusion and repletion PRN 5) Maintain bowel regularity w/ adequate po intake/enteral infusion w/o development of diarrhea/constipation Result Diagrams: 05/01/19 06:33 05/01/19 16:43 Microbiology and Other Data: Microbiology 04/27/19 04:05 Urine Culture - Final Urine No Growth (<1,000 CFU/mL) Assess/Plan/Problems-Billing Assessment: Patient is a 64yo female with no significant PMH who was found to have a neck mass consistent with an aggressive malignancy and is currently awaiting pathology and treatment recommendations. - Patient Problems (1) Neck mass Current Visit: Yes Status: Acute Code(s): R22.1 - LOCALIZED SWELLING, MASS AND LUMP, NECK SNOMED Code(s): 688084876 Comment: - Likely malignancy, s/p FNA unfortunately the Pathology not diagnostic - Will need incisional biopsy. 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 - Severe pain, treat with Morphine and fentanyl patch. . - Patient is interested in second opinion from [place] when pathology available. Unable to transfer at this time with the tissue diagnosis. Please see my discuss above regarding the discussion and plan for tracheostomy in am (2) Dysphagia Current Visit: Yes Status: Acute Code(s): R13.10 - DYSPHAGIA, UNSPECIFIED SNOMED Code(s): 65697024 Comment: - NG tube inserted by ENT 04/30/19 - tube feedings, now at 40ml/hr - off Fluids - Will hold tube feed for surgery in am (3) DVT prophylaxis Current Visit: Yes Status: Acute Code(s): Z29.9 - ENCOUNTER FOR PROPHYLACTIC MEASURES, UNSPECIFIED SNOMED Code(s): 615928463 Comment: - Lovenox subq will hold for OR in am Status and Disposition: Inpatient for management of Neck Mass.
[2019-05-01 17:17] LABS: CO2 Carbon Dioxide 31 mmol/L (22-32); Calcium 6.8 mg/dL (8.6-10.3); Chloride 94 mmol/L (101-111); Sodium 132 mmol/L (135-145)
[2019-05-01 17:18] LABS: Anion Gap 7 mmol/L (2-11)
[2019-05-01 17:23] LABS: BUN/Creatinine Ratio 17.3 (8-20); Blood Urea Nitrogen 9 mg/dL (6-24); EGFR African American 144.6 (>60); EGFR Non-African American 119.5 (>60); Glucose 139 mg/dL (70-100); Phosphorus 2.1 mg/dL (2.5-5.0)
[2019-05-01 18:19] LABS: Potassium Redraw 3.8 mmol/L (3.5-5.0)
[2019-05-02] MEDS: Morphine INJ* 4 MG/ML 1 ML SYRINGE (NEW SYRINGE VERSION) IV PRN ×8 (00:56→23:48)
[2019-05-02] MEDS: Ondansetron INJ* 2 MG/ML VIAL IV PRN (04:25)
[2019-05-02] MEDS: PROCHLORPERAZINE INJ 5 MG/ML 2 ML VIAL IV PRN ×2 (06:49→19:17)
[2019-05-02] MEDS: fentaNYL Patch Check Q Shift 1 NOTE FOLLOW UP SCH ×4 (06:57→19:06)
[2019-05-02] MEDS: Potassium & Sodium Phos 250MG* = 1 PACKET PO SCH ×4 (08:12→21:21)
[2019-05-02] MEDS: Magnesium Oxide TAB* 400 MG PO SCH (08:12)
[2019-05-02] MEDS: Potassium Chloride* LIQUID 20 MEQ/15 ML UDC PO SCH ×2 (08:12→21:21)
[2019-05-02] MEDS ORDERED: Calcium CHLORIDE 10% SYRINGE* 1 GM/10 ML IV ONE (08:39)
[2019-05-02] MEDS ORDERED: NS 0.9% 1000 ML** 1,000 ML IV SCH (08:45)
[2019-05-02] MEDS ORDERED: Potassium Phosphate IV* 10 MMOLE in NS 0.9% 250 ML* 250 ML IVPB ONE (09:30)
[2019-05-02] MEDS ORDERED: Calcium Gluconate INJ* 1 GM in NS 0.9% 50 ML* 50 ML IVPB ONE ×2 (10:30→18:45)
[2019-05-02 14:45] LABS: BUN/Creatinine Ratio 15.8 (8-20); Calcium 6.7 mg/dL (8.6-10.3); EGFR Non-African American 107.5 (>60); Magnesium 1.5 mg/dL (1.9-2.7); Phosphorus 1.8 mg/dL (2.5-5.0); Potassium 3.9 mmol/L (3.5-5.0)
[2019-05-02] MEDS ORDERED: Oxymetazoline 0.05% NASAL SPR* 15 ML BTL ONE (16:37)
[2019-05-02] MEDS ORDERED: Lidocaine 2% w/ EPI 1:200,000* 20 ML SDV VIAL ONE (16:37)
[2019-05-02] MEDS ORDERED: Ketorolac INJ* 30 MG/ML 1 ML VIAL ONE (17:00)
[2019-05-02] MEDS ORDERED: Acetaminophen IV 1GM/100ML * 100 ML ONE (17:00)
[2019-05-02] MEDS ORDERED: Midazolam* 1 MG/ML 2 ML VIAL (2 MG) ONE ×2 (17:03→18:26)
[2019-05-02] MEDS ORDERED: Flumazenil* 0.1 MG/ML 5 ML MDV ONE (17:07)
[2019-05-02] MEDS ORDERED: Labetalol IV* 5 MG/ML 20 ML VIAL ONE (17:07)
[2019-05-02] MEDS ORDERED: Dexamethasone IV* 4 MG/ML 1 ML (4 MG) ONE (17:59)
[2019-05-02] MEDS ORDERED: Ondansetron INJ* 2 MG/ML VIAL ONE (17:59)
[2019-05-02] MEDS ORDERED: diPHENhydraMINE IV* 50 MG/ML 1 ml VIAL (BENADRYL) IV PRN (18:04)
[2019-05-02] MEDS ORDERED: fentaNYL* 50 MCG/ML 2 ML VIAL (100 MCG VIAL) IV PRN (18:04)
[2019-05-02] MEDS ORDERED: Naloxone* 0.4 MG/ML 1 ML VIAL IV PRN (18:04)
--- NOTE | 2019-05-02 18:25 | PN ---
Subjective Date of Service: 05/02/19 Interval History: awake alert. had a lengthy condition with family (daughter and ). I explained the current plan of trach collar and biopsy today. Schedule to be done this afternoon. awaiting till post procedure to call Dimitrios for update Past Medical History: Unchanged from Admission Objective Active Medications: Amlodipine Besylate (Norvasc Tab*) 5 mg PO QPM [facility] Last Admin: 05/01/19 16:23 Dose: 5 mg Diphenhydramine HCl (Benadryl Iv*) 25 mg IV ONCE PRN PRN Reason: ITCHING Fentanyl (Duragesic Patch 25 Mcg/Hr*) 25 mcg TRANSDERM Q72H [facility] Last Admin: 04/29/19 19:08 Dose: 25 mcg Fentanyl (Duragesic Patch 12 Mcg/Hr *) 12 mcg TRANSDERM Q72H [facility] Last Admin: 04/29/19 19:08 Dose: 12 mcg Fentanyl Citrate (Fentanyl*) 25 mcg IV Q5M PRN PRN Reason: PAIN - MODERATE Hydralazine HCl (Apresoline Iv*) 5 mg IV SLOW PU Q6H PRN PRN Reason: BLOOD PRESSURE Sodium Chloride (Ns 0.9% 1000 Ml) 1,000 mls @ 125 mls/hr IV .per rate [facility] Last Admin: 05/02/19 13:34 Dose: 125 mls/hr Morphine Sulfate (Morphine Inj (Syringe)*) 4 mg IV Q2H PRN PRN Reason: SEVERE PAIN Last Admin: 05/02/19 13:34 Dose: 4 mg Naloxone HCl (Narcan*) 0.08 mg IV Q2M PRN PRN Reason: severe induced resp depression Ondansetron HCl (Zofran Inj*) 4 mg IV Q6H PRN PRN Reason: NAUSEA Last Admin: 05/02/19 04:25 Dose: 4 mg Pharmacy Profile Note (Fentanyl Patch Check Q Shift) 1 note FOLLOW UP 1899 [facility] Last Admin: 05/02/19 06:57 Dose: 1 note Pharmacy Profile Note (Fentanyl Patch Check Q Shift) 1 note FOLLOW UP 699, 1899 [facility] Last Admin: 05/02/19 06:58 Dose: 1 note Potassium Chloride (Potassium Chloride Liquid) 20 meq PO BID [facility] Last Admin: 05/02/19 08:12 Dose: Not Given Potassium Phos/Sodium Phos (Neutra Phos 250 Mg Rodo*) 250 mg PO QID [facility] Last Admin: 05/02/19 12:15 Dose: Not Given Prochlorperazine Edisylate (Compazine Inj*) 5 mg IV Q6H PRN PRN Reason: NAUSEA/VOMITING Last Admin: 05/02/19 06:49 Dose: 5 mg Vital Signs - 8 hr 05/02/19 05/02/19 05/02/19 11:15 11:35 11:40 Temperature 97.8 F Pulse Rate 79 Respiratory 14 18 16 Rate Blood Pressure 172/90 (mmHg) O2 Sat by Pulse 98 Oximetry 05/02/19 05/02/19 05/02/19 13:04 13:34 14:49 Temperature Pulse Rate Respiratory 16 18 16 Rate Blood Pressure (mmHg) O2 Sat by Pulse Oximetry 05/02/19 05/02/19 05/02/19 16:18 16:31 16:45 Temperature Pulse Rate 87 83 84 Respiratory 13 13 Rate Blood Pressure 171/100 187/98 176/108 (mmHg) O2 Sat by Pulse 85 99 99 Oximetry Oxygen Devices in Use Now: OxyMask Appearance: stable no distress. NGT in place Eyes: No Scleral Icterus Ears/Nose/Mouth/Throat: Mucous Membranes Moist Neck: Trachea Midline, - - left submental and mastoid bone tenderness and swelling Respiratory: Symmetrical Chest Expansion and Respiratory Effort Cardiovascular: NL Sounds; No Murmurs; No JVD, No Edema Abdominal: NL Sounds; No Tenderness; No Distention Skin: No Rash or Ulcers Neurological: Alert and Oriented x 3 - Nutrition: Malnutrition Diagnosis/Plan Malnutrition Assessment by Registered Dietitian: Malnutrition Assessment Clinical Characteristics Chronic,Severe Malnutrition Assessment: Inadequate Oral Intake - Pt reports poor intake Criteria x1 mo w/ inability to swallow; consumed 0% B this AM - Anticipate meeting <75% nutrient needs x1 mo (severe) Unintentional Weight Loss - Pt reports wt loss x1 mo; current wt 117lb, UBW 135lb x1 mo ago - 13.3% loss x1 mo (severe) Malnutrition Assessment: Nutrient Delivery - Given inability to swallow w Interventions / otherwise usable GI tract and malnourished status, recommend initiating TF as able; see Nutrition Assessment under Patient Care tab for recommendations; will make further recommendations as indicated Texture Modification - Per MORNING NEWS ANCHOR, recommend allowing only small sips of thin liquids and consideration for nutrition support; will monitor tolerance to sips of thin liquids and recommend MORNING NEWS ANCHOR f/u as indicated Malnutrition Assessment: Goals 1) Recommend initiating TF as able 2) Pt will tolerate least restrictive dietary textures w/o further difficulty swallowing 3) Adequate po intake/enteral infusion to support lean body mass and hydration status 4) Improve fluid/electrolyte balance w/ adequate po intake/enteral infusion and repletion PRN 5) Maintain bowel regularity w/ adequate po intake/enteral infusion w/o development of diarrhea/constipation Result Diagrams: 05/01/19 06:33 05/02/19 14:17 Microbiology and Other Data: Microbiology 04/27/19 04:05 Urine Culture - Final Urine No Growth (<1,000 CFU/mL) Assess/Plan/Problems-Billing Assessment: Patient is a 64yo female with no significant PMH who was found to have a neck mass consistent with an aggressive malignancy and is currently awaiting pathology and treatment recommendations. - Patient Problems (1) Neck mass Current Visit: Yes Status: Acute Code(s): R22.1 - LOCALIZED SWELLING, MASS AND LUMP, NECK SNOMED Code(s): 650753740 Comment: - Likely malignancy, s/p FNA unfortunately the Pathology not diagnostic - s/p incisional biopsy today 05/02/19. as per Onc more likely to be non- squamous cell head and neck cancer. - Severe pain, treat with Morphine and fentanyl patch. . - Patient is interested in second opinion from [place] when pathology available. Unable to transfer at this time with the tissue diagnosis. biopsy done will try to arrange for transfer once bed available (2) Dysphagia Current Visit: Yes Status: Acute Code(s): R13.10 - DYSPHAGIA, UNSPECIFIED SNOMED Code(s): 76785448 Comment: - NG tube inserted by ENT 04/30/19 - tube feedings, now at 40ml/hr. resume tube feed once done with biopsy and d/ c IVF (3) DVT prophylaxis Current Visit: Yes Status: Acute Code(s): Z29.9 - ENCOUNTER FOR PROPHYLACTIC MEASURES, UNSPECIFIED SNOMED Code(s): 303809270 Comment: - Lovenox subq will hold for OR in am (4) Electrolyte disturbance Current Visit: Yes Status: Acute Code(s): E87.8 - OTH DISORDERS OF ELECTROLYTE AND FLUID BALANCE, NEC SNOMED Code(s): 660885095 Comment: - Supplement peripheral and via NGT Status and Disposition: Inpatient for management of Neck Mass.
[2019-05-02] MEDS ORDERED: Potassium Phosphate IV* 15 MMOLE in NS 0.9% 250 ML* 250 ML IVPB ONE (18:27)
[2019-05-02] MEDS ORDERED: fentaNYL* 50 MCG/ML 2 ML VIAL (100 MCG VIAL) ONE (18:34)
[2019-05-02] MEDS ORDERED: Magnesium Sulfate IV* 3 GM in NS 0.9% 100 ML* 100 ML IVPB ONE (18:45)
[2019-05-02] MEDS: amLODIPine TAB* 5 MG PO SCH (19:09)
[2019-05-02] MEDS: hydrALAZINE IV* 20 MG/ML VIAL IV SLOW PU PRN (19:17)
[2019-05-02] MEDS ORDERED: Lorazepam PYXIS KEY PRN (19:29)
[2019-05-02] MEDS: LORazepam INJ* 2 MG/ML 1 ML VIAL IV PUSH PRN (19:47)
[2019-05-02] MEDS: fentaNYL PATCH 25 MCG/HR TRANSDERM SCH (19:47)
[2019-05-02] MEDS: fentaNYL PATCH 12 MCG/HR TRANSDERM SCH (19:48)
[2019-05-02 20:46] LABS: Calcium 6.6 mg/dL (8.6-10.3); EGFR African American 151.3 (>60); Magnesium 1.3 mg/dL (1.9-2.7); Phosphorus 1.4 mg/dL (2.5-5.0); Potassium 3.7 mmol/L (3.5-5.0)
--- NOTE | 2019-05-03 00:36 | OP ---
DATE OF OPERATION: 05/02/19 - ROOM #ICU-01 DATE OF : 59 SURGEON: Jaime Torres MD PRE-OP DIAGNOSES: 1. Oropharyngeal, retropharyngeal mass. 2. Difficult airway. POST-OP DIAGNOSES: 1. Oropharyngeal, retropharyngeal mass. 2. Difficult airway. OPERATIVE PROCEDURES: Awake tracheostomy, intraoral oropharyngeal mass. INDICATION: This 64-year-old female presenting with a gradually enlarging, but painful retropharyngeal mass, she came to the emergency room after not being able to eat for about 10 days. Anesthesia and clinical examination determined that the patient had significant trismus, difficulty opening the mouth, poor nasal airway, and thought the best would be to do an awake tracheostomy. DESCRIPTION OF PROCEDURE: The patient was taken to the operating room. Under local MAC anesthesia, 2% lidocaine with epinephrine was infiltrated into the skin above the tracheostomy site. Subplatysmal flaps were elevated. The strap muscles were identified in the midline. Divided out laterally. The thyroid isthmus was identified, carefully divided partially until the second ring was well exposed. An incision was made in the second ring and the tracheostomy #6 Shiley with cuff was inserted. The patient was then given a general anesthesia. Tongue, mandible, soft palate was retracted. A small incision was made into the palatopharyngeal mucosa. Submucosal elevation was carried out. The mass was identified. 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 Pending further investigation. The wound was then closed in single layer using 3-0 chromic. The patient was then awakened, sent to the ICU, breathing spontaneously. Instrument and sponge count correct. Blood loss minimal. [id number]/CPS #: [id number] MTDD
[2019-05-03] MEDS: Morphine INJ* 4 MG/ML 1 ML SYRINGE (NEW SYRINGE VERSION) IV PRN ×8 (01:36→21:59)
[2019-05-03] MEDS: LORazepam INJ* 2 MG/ML 1 ML VIAL IV PUSH PRN ×3 (02:36→20:50)
[2019-05-03 05:01] LABS: ABS Lymphocytes 0.4 10^3/ul (1.0-4.8); ABS Monocytes 0.8 10^3/ul (0-0.8); ABS Neutrophils 12.1 10^3/ul (1.5-7.7); Hematocrit 38 % (35-47); Hemoglobin 12.8 g/dL (12.0-16.0); Lymphocyte % 2.8 %; Mean Corpuscular HGB Conc 34 g/dL (31-36); Mean Corpuscular Hemoglobin 29 pg (27-31); Mean Corpuscular Volume 86 fL (80-97); Mean Platelet Volume 6.9 fL (7.4-10.4); Nucleated Red Blood Cells % 0.1; Platelet Count 363 10^3/uL (150-450); Red Blood Count 4.37 10^6 /uL (3.70-4.87); Red Cell Distribution Width 13 % (10-15); White Blood Count 13.3 10^3/uL (3.5-10.8)
[2019-05-03 05:18] LABS: Albumin 3.4 g/dL (3.2-5.2); Albumin/Globulin Ratio 1.2 (1-3); BUN/Creatinine Ratio 19.3 (8-20); Calcium 6.5 mg/dL (8.6-10.3); EGFR Non-African American 107.5 (>60); Globulin 2.9 g/dL (2-4); Indirect Bilirubin 0.4 mg/dL (0.3-1.0); Magnesium 1.9 mg/dL (1.9-2.7); Phosphorus 2.9 mg/dL (2.5-5.0); Potassium 4.1 mmol/L (3.5-5.0); Total Bilirubin 0.6 mg/dL (0.2-1.0); Total Protein 6.3 g/dL (6.4-8.9)
[2019-05-03] MEDS: fentaNYL Patch Check Q Shift 1 NOTE FOLLOW UP SCH ×4 (07:06→19:04)
[2019-05-03] MEDS: Potassium & Sodium Phos 250MG* = 1 PACKET PO SCH ×4 (08:11→20:10)
[2019-05-03] MEDS: Potassium Chloride* LIQUID 20 MEQ/15 ML UDC PO SCH ×2 (08:11→20:10)
[2019-05-03] MEDS: Calcium Carbonate LIQ* 1,250 MG/5 ML UDC PO SCH ×3 (09:54→20:09)
[2019-05-03] MEDS: Magnesium Oxide TAB* 400 MG PO SCH ×3 (09:54→20:10)
--- NOTE | 2019-05-03 12:06 | PN ---
Subjective Date of Service: 05/03/19 Interval History: Patient seen today, in ICU bed 1. s/p Tracheostomy POD # 1. S/p Left Parapharyngeal mass biopsy final biopsy report is pending. 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 Arrington (our pathologist). The final report won't be ready until either this evening or early tomorrow. Nonetheless, I did request to have the slide available to be send to [facility] as per their request. Accepting physician is Dr. Damir Ivan Oncologist. I did meet with the family as well this morning. I did relay the Preliminary pathology report. As anticipated they were emotionally upset, provided them with support and offered them counseling. I also updated them that she was accepted at [facility] ICU, and we are awaiting Bed availability. Her labs reviewed from this morning, her electrolytes has been all addressed and supplemented with repeat Electrolytes ordered for this afternoon. Pain is being adequately treated and Ativan for anxiety Past Medical History: Unchanged from Admission Objective Active Medications: Amlodipine Besylate (Norvasc Tab*) 5 mg PO QPM REPLACED BY [facility] Last Admin: 05/02/19 19:09 Dose: Not Given Calcium Carbonate (Calcium Carbonate Liq*) 1,250 mg PO TID REPLACED BY [facility] Stop: 05/06/19 08:59 Last Admin: 05/03/19 09:54 Dose: 1,250 mg Fentanyl (Duragesic Patch 25 Mcg/Hr*) 25 mcg TRANSDERM Q72H [facility] Last Admin: 05/02/19 19:47 Dose: 25 mcg Fentanyl (Duragesic Patch 12 Mcg/Hr *) 12 mcg TRANSDERM Q72H [facility] Last Admin: 05/02/19 19:48 Dose: 12 mcg Hydralazine HCl (Apresoline Iv*) 5 mg IV SLOW PU Q6H PRN PRN Reason: BLOOD PRESSURE Last Admin: 05/02/19 19:17 Dose: 5 mg Lorazepam (Ativan Inj*) 0.5 mg IV PUSH Q6H PRN PRN Reason: ANXIETY Last Admin: 05/03/19 10:00 Dose: 0.5 mg Magnesium Oxide (Magox 400 Tab*) 800 mg PO TID REPLACED BY [facility] Stop: 05/06/19 08:59 Last Admin: 05/03/19 09:54 Dose: 800 mg Miscellaneous (Ativan Pyxis Cramer) 1 ea N/A .ATIVAN IV CRAMER PRN PRN Reason: PYXIS CRAMER Morphine Sulfate (Morphine Inj (Syringe)*) 4 mg IV Q2H PRN PRN Reason: SEVERE PAIN Last Admin: 05/03/19 08:25 Dose: 4 mg Ondansetron HCl (Zofran Inj*) 4 mg IV Q6H PRN PRN Reason: NAUSEA Last Admin: 05/02/19 04:25 Dose: 4 mg Pharmacy Profile Note (Fentanyl Patch Check Q Shift) 1 note FOLLOW UP 1899 REPLACED BY [facility] Last Admin: 05/03/19 07:06 Dose: 1 note Pharmacy Profile Note (Fentanyl Patch Check Q Shift) 1 note FOLLOW UP 1899 REPLACED BY [facility] Last Admin: 05/03/19 07:06 Dose: 1 note Potassium Chloride (Potassium Chloride Liquid) 20 meq PO BID REPLACED BY [facility] Last Admin: 05/03/19 08:11 Dose: 20 meq Potassium Phos/Sodium Phos (Neutra Phos 250 Mg Rodo*) 250 mg PO QID REPLACED BY [facility] Last Admin: 05/03/19 08:11 Dose: 250 mg Prochlorperazine Edisylate (Compazine Inj*) 5 mg IV Q6H PRN PRN Reason: NAUSEA/VOMITING Last Admin: 05/02/19 19:17 Dose: 5 mg Vital Signs - 8 hr 05/03/19 05/03/19 05/03/19 04:00 05:00 05:19 Temperature Pulse Rate 78 75 Respiratory 12 13 14 Rate Blood Pressure 119/76 148/94 (mmHg) O2 Sat by Pulse 93 95 Oximetry 05/03/19 05/03/19 05/03/19 05:44 06:01 07:00 Temperature Pulse Rate 88 91 Respiratory 16 15 18 Rate Blood Pressure 126/77 142/96 (mmHg) O2 Sat by Pulse 96 95 Oximetry 05/03/19 05/03/19 05/03/19 08:00 08:25 09:00 Temperature 98.2 F Pulse Rate 78 86 Respiratory 12 14 14 Rate Blood Pressure 152/82 148/94 (mmHg) O2 Sat by Pulse 97 94 Oximetry 05/03/19 05/03/19 05/03/19 10:00 10:01 11:20 Temperature Pulse Rate 90 Respiratory 21 16 21 Rate Blood Pressure 157/98 (mmHg) O2 Sat by Pulse 96 Oximetry Oxygen Devices in Use Now: Tracheostomy Collar Appearance: awake, drowsy a litte but able to comprehend my discussion. Trach collar in place Eyes: No Scleral Icterus, - - EOMI Ears/Nose/Mouth/Throat: Mucous Membranes Moist, - - trach collar Neck: - Respiratory: Symmetrical Chest Expansion and Respiratory Effort, - - bibasilar rales Cardiovascular: NL Sounds; No Murmurs; No JVD, RRR, No Edema Abdominal: NL Sounds; No Tenderness; No Distention - Nutrition: Malnutrition Diagnosis/Plan Malnutrition Assessment by Registered Dietitian: Malnutrition Assessment Clinical Characteristics Chronic,Severe Malnutrition Assessment: Inadequate Oral Intake - Pt reports poor intake Criteria x1 mo w/ inability to swallow; consumed 0% B this AM - Anticipate meeting <75% nutrient needs x1 mo (severe) Unintentional Weight Loss - Pt reports wt loss x1 mo; current wt 117lb, UBW 135lb x1 mo ago - 13.3% loss x1 mo (severe) Malnutrition Assessment: Nutrient Delivery - Given inability to swallow w Interventions / otherwise usable GI tract and malnourished status, recommend initiating TF as able; see Nutrition Assessment under Patient Care tab for recommendations; will make further recommendations as indicated Texture Modification - Per TELECOMMUNICATIONS SPECIALIST, recommend allowing only small sips of thin liquids and consideration for nutrition support; will monitor tolerance to sips of thin liquids and recommend TELECOMMUNICATIONS SPECIALIST f/u as indicated Malnutrition Assessment: Goals 1) Recommend initiating TF as able 2) Pt will tolerate least restrictive dietary textures w/o further difficulty swallowing 3) Adequate po intake/enteral infusion to support lean body mass and hydration status 4) Improve fluid/electrolyte balance w/ adequate po intake/enteral infusion and repletion PRN 5) Maintain bowel regularity w/ adequate po intake/enteral infusion w/o development of diarrhea/constipation Result Diagrams: 05/03/19 04:43 05/03/19 04:43 Microbiology and Other Data: Microbiology 04/27/19 04:05 Urine Culture - Final Urine No Growth (<1,000 CFU/mL) Assess/Plan/Problems-Billing Assessment: Patient is a 64yo female with no significant PMH who was found to have a neck mass consistent with an aggressive malignancy s/p Tracheostomy on 05/02/19. S/ p Left Parapharyngeal mass biopsy 05/02/19 final biopsy report is pending. 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 Arrington (our pathologist). Awaiting bed acceptance at [facility] as per their request. Accepting physician is Dr. Damir Ivan Oncologist - Patient Problems (1) Neck mass Current Visit: Yes Status: Acute Code(s): R22.1 - LOCALIZED SWELLING, MASS AND LUMP, NECK SNOMED Code(s): 168264891 Comment: - Likely malignancy, s/p FNA unfortunately the Pathology not diagnostic - s/p incisional biopsy Tracheostomy POD # 1. S/p Left Parapharyngeal mass biopsy final biopsy report is pending. 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 Arrington (our pathologist). I did request to have the slide available to be send to [facility] as per their request. Accepting physician is Dr. Damir Ivan Oncologist - Severe pain, treat with Morphine and fentanyl patch. (2) Dysphagia Current Visit: Yes Status: Acute Code(s): R13.10 - DYSPHAGIA, UNSPECIFIED SNOMED Code(s): 48762632 Comment: - NG tube inserted by ENT 04/30/19 - tube feedings, now at 40ml/hr. (3) Electrolyte disturbance Current Visit: Yes Status: Acute Code(s): E87.8 - OTH DISORDERS OF ELECTROLYTE AND FLUID BALANCE, NEC SNOMED Code(s): 458758474 Comment: - Supplement peripheral and via NGT - Will f/u BMP this evening (4) Hypertension Current Visit: Yes Status: Acute Code(s): I10 - ESSENTIAL (PRIMARY) HYPERTENSION SNOMED Code(s): 58940292 Comment: amlodpine 5 mg daily (5) DVT prophylaxis Current Visit: Yes Status: Acute Code(s): Z29.9 - ENCOUNTER FOR PROPHYLACTIC MEASURES, UNSPECIFIED SNOMED Code(s): 488943484 Comment: - Lovenox subq Status and Disposition: Inpatient for management of Neck Mass.
[2019-05-03] MEDS: hydrALAZINE IV* 20 MG/ML VIAL IV SLOW PU PRN (12:15)
[2019-05-03] MEDS: Enoxaparin(*) 40 MG/0.4 ML SYR SUBCUT SCH (13:23)
[2019-05-03] MEDS: Metoprolol Tartrate TAB* 25 MG PO SCH ×2 (15:05→20:10)
--- NOTE | 2019-05-03 16:29 | TRS ---
TRANSFER SUMMARY: DATE OF ADMISSION: 04/26/19 DATE OF TENTATIVE DISCHARGE/TRANSFER: Date to be determined pending bed availability TRANSFER FACILITY: [facility] in [place]. ACCEPTING PHYSICIAN: Dr. Damir Ivan. FINAL DISCHARGE DIAGNOSES: 1. 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 2. Dysphagia secondary to her oropharyngeal mass. 3. Airway compromise due to her airway oropharyngeal mass. 4. Electrolyte disturbance, hypomagnesemia, hypophosphatemia, hypokalemia, and hypocalcemia. 5. Hypertension. HOSPITAL COURSE: The patient presented to [facility] on 04/26/19 with severe left-sided neck pain. As per her presenting history and physical, the patient was complaining of neck pain starting back around in February, associated with postnasal drip and nasal congestion. She did not have followup with primary care provider. She did go and seek help at the urgent care not until 03/29/19. At that time, she was prescribed amoxicillin. However, her symptoms did not improve. She continued to have progressive symptoms with difficulty swallowing with a large amount of mucus and it got to the point where she was not able to tolerate anything by mouth since and she was only living on a liquid diet. Then, on 04/23/19, she was seen by the [facility] provider where she was developing worsening difficulty with her voice and weight loss and increased pain and swelling. At that time, a CT scan of the neck was ordered which revealed an aggressive large mass 3.8 x 3.9 x 6 cm on the left side involving multiple deep spaces with direct extension to the left skull base, left anterior arch of C1, and also extending into the left carotid sheath and partially surrounding the distal left cervical internal carotid artery. The patient was admitted to the medicine service. Consultation with the production control coordinator was obtained and a fine-needle aspiration and biopsy was obtained from her left lymph node, but the tissue sample was nondiagnostic. Oncology service as well was consulted with Dr. Mckinley Rivera. They had extensive discussion with our oncologist and recommendation at that time was pending the biopsy most likely will be chemotherapy and radiation. They did request transfer to a larger medical center and they all voiced their interest to be transferred to [facility] understanding that it would be a private request for transfer and they asked us to facilitate the transfer to [facility] in [place] as their first choice. Transfer request was initiated by my colleague, MARTHA Trevino, on 04/28/19 and 04/29 with [facility]. At that time, they did not accept the patient without a tissue biopsy and I came on board on 05/01/19, and after extensive discussion with our anesthesiology department, interventional radiology department, and our ENT as well as keeping the family informed and involved throughout the hospital course stay regarding the next proper care of plan, we all agreed that given her extensive neck mass and involvement of the oropharynx to proceed with tracheostomy for airway protection and post tracheostomy to proceed with incisional biopsy, which was done on 05/02/19 intraoperatively, and postop, she went to the ICU for post tracheostomy care. I was able to connect on the phone with Dr. Ivan yesterday, 05/02/19. I discussed the case personally with him over the phone, relayed my concern regarding the pathology which is probably consistent with cancer and that she would require inpatient stay for her initial treatment for palliative care at least to decrease her airway compromise. He kindly accepted the patient to his service, ICU bed, and this was confirmed this morning by our transfer center that the patient has been accepted awaiting ICU bed to open up for the transfer. Later on, I did meet with the family, the and the daughter at bedside and another daughter over the phone. I did inform of the pathology preliminary report, which was suggestive of basaloid cancer and the acceptance, and at this time, we are awaiting bed availability in the ICU at [facility]. At the present time, her medical condition is stable. She does require higher level of care. She is currently in ICU bed requiring multiple electrolyte replacements, NG tube feeding, and close nursing care. PHYSICAL EXAMINATION: Her temperature is 98.3, pulse 95, respiratory rate ranging 15 to 20, satting 96% on 10 L, blood pressure ranging between 180 to 91. Generally, she is arousable, but sedated and provided amp of anxiolytic therapy. She is moving her extremities, protecting her airway and responding appropriately to command. Her lungs, good airflow, fine bibasilar crackles. Cardiovascular: S1, S2, tachycardic. I do not appreciate any murmur. Neck: She does have tracheostomy in place, postop day #1 on trach collar with oxygen flow 10 L. Abdomen: Positive bowel sounds. Soft, nontender, nondistended. Extremities: No pedal edema. INPATIENT DIAGNOSTIC STUDIES/LAB DATA: CBC, multiple: White cell count averaging between 12 and 13,000, H and H stable at 12 and 38. Chemistry, multiple throughout the stay: They were more pronounced for significant hypocalcemia. When she presented, her calcium was 12, now is down to 6.5. It is probably from hypovolemia and resolved with nutritional feed. Hypophosphatemia with phosphorus as low as 1.4, being supplemented, currently up to 2.9. Hypomagnesemia as low as 1.3, currently up to 1.9. Hypokalemia of 3.0, currently up to 4.1. Albumin is 3.4, protein is 6.3. Urinalysis shows 2+ wbc's, absent bacteria. Flow cytometry reveals no evidence of abnormal cell population from her left neck. Microbiology: Urine culture did not show growth. MRSA screen was negative. Imaging: Chest x-ray, 04/26/19, shows no focal disease. On 04/26/19, ultrasound of the abdomen: There was 4.5 cm mass suggestive of being fatty infiltration; however, recommended follow up with MRI or 6-month ultrasound, biliary sludge. CT of the chest, abdomen and pelvis reveals low density in the medial segment of the left lobe representing a cyst and fatty infiltration in the left lower lobe of the liver, small 3-5 mm left retroperitoneal lymph node reactive. Lung field shows no evidence of pulmonary nodules, no evidence of alveolar consolidation, mild emphysematous changes. Pathology: She had biopsy of the left paracervical lymph node, fine needle, did not show any evidence of malignancy. Left parapharyngeal mass dated 05/02/19 intraoperatively result is pending, but preliminary report suggestive of basaloid carcinoma. Two-D echo dated 04/26/19 revealed: 1. Ejection fraction 55% to 60%. 2. Moderate tricuspid regurg. Otherwise unremarkable. PROCEDURES: Surgery dated 05/02/19, had awake tracheostomy with intraoral oropharyngeal mass. Then, incisional biopsy was obtained through the palatopharyngeal mucosa, which shows questionable basaloid tumor. DISCHARGE/CURRENT MEDICATIONS: 1. Amlodipine 5 mg daily. 2. Metoprolol 25 b.i.d. 3. Calcium carbonate liquid 1250 p.o. b.i.d., adjusted daily pending her electrolytes. 4. Lovenox subcu 24 daily. 5. Fentanyl patch 25 mcg q.72 hours along with another patch of 12 mcg for a total of 37. 6. Hydralazine 5 mg q.6 p.r.n. 7. Ativan 0.5 q.6. 8. Magnesium 800 mg p.o. t.i.d., adjusted according to her electrolytes. 9. Morphine 4 mg q.2 p.r.n. 10. Zofran 4 mg IV q.6 p.r.n. 11. Potassium liquid 20 mEq b.i.d. 12. Neutra-Phos 250 mg p.o. 4 times daily. 13. Compazine 5 mg IV q.6 hours p.r.n. Additional IV medications: 1. P.r.n. magnesium status post 3 g IV 1 dose. 2. Calcium gluconate status post 1 g p.r.n., so far she required 3 doses of IV calcium. 3. K-Phos 15 mmol IV. CURRENT CONDITION: Stable, ICU status. DISCHARGE DISPOSITION: Pending accepting bed at [facility] ICU. [id number]/[facility] #: [id number] MTDD
[2019-05-03] MEDS: amLODIPine TAB* 5 MG PO SCH (17:08)
[2019-05-03 18:38] LABS: BUN/Creatinine Ratio 23.5 (8-20); Calcium 7.4 mg/dL (8.6-10.3); EGFR African American 147.9 (>60); EGFR Non-African American 122.2 (>60); Magnesium 1.7 mg/dL (1.9-2.7); Potassium 4.3 mmol/L (3.5-5.0)
[2019-05-03] MEDS: Ondansetron INJ* 2 MG/ML VIAL IV PRN (19:31)
[2019-05-04] MEDS: Morphine INJ* 4 MG/ML 1 ML SYRINGE (NEW SYRINGE VERSION) IV PRN ×8 (00:18→19:56)
[2019-05-04] MEDS: LORazepam INJ* 2 MG/ML 1 ML VIAL IV PUSH PRN ×2 (03:57→21:50)
[2019-05-04 05:56] LABS: ABS Lymphocytes 0.8 10^3/ul (1.0-4.8); ABS Neutrophils 14.4 10^3/ul (1.5-7.7); Eosinophil % 0.1 %; Hematocrit 33 % (35-47); Hemoglobin 11.3 g/dL (12.0-16.0); Lymphocyte % 4.9 %; Mean Corpuscular HGB Conc 34 g/dL (31-36); Mean Corpuscular Hemoglobin 29 pg (27-31); Mean Corpuscular Volume 87 fL (80-97); Platelet Count 366 10^3/uL (150-450); Red Blood Count 3.84 10^6 /uL (3.70-4.87); Red Cell Distribution Width 13 % (10-15); White Blood Count 16.2 10^3/uL (3.5-10.8)
[2019-05-04 06:14] LABS: BUN/Creatinine Ratio 24.5 (8-20); Blood Urea Nitrogen 12 mg/dL (6-24); CO2 Carbon Dioxide 29 mmol/L (22-32); Calcium 7.6 mg/dL (8.6-10.3); Chloride 98 mmol/L (101-111); EGFR African American 154.8 (>60); Glucose 126 mg/dL (70-100); Magnesium 1.6 mg/dL (1.9-2.7); Phosphorus 1.9 mg/dL (2.5-5.0); Sodium 131 mmol/L (135-145)
[2019-05-04 06:17] LABS: Anion Gap 4 mmol/L (2-11)
[2019-05-04] MEDS ORDERED: Magnesium Sulfate 2 GM IV (Premix) IVPB ONE (07:00)
[2019-05-04] MEDS: fentaNYL Patch Check Q Shift 1 NOTE FOLLOW UP SCH ×4 (07:07→19:18)
[2019-05-04] MEDS: Ondansetron INJ* 2 MG/ML VIAL IV PRN ×2 (07:46→19:56)
[2019-05-04] MEDS: Calcium Carbonate LIQ* 1,250 MG/5 ML UDC PO SCH ×3 (07:52→22:03)
[2019-05-04] MEDS: Magnesium Oxide TAB* 400 MG PO SCH ×3 (07:52→21:42)
[2019-05-04] MEDS: Potassium & Sodium Phos 250MG* = 1 PACKET PO SCH ×4 (07:53→21:43)
[2019-05-04] MEDS: Potassium Chloride* LIQUID 20 MEQ/15 ML UDC PO SCH ×2 (07:53→09:45)
[2019-05-04] MEDS: Metoprolol Tartrate TAB* 25 MG PO SCH ×2 (07:59→21:42)
[2019-05-04] MEDS ORDERED: Potassium Phosphate IV* 15 MMOLE in NS 0.9% 250 ML* 250 ML IVPB ONE (08:24)
[2019-05-04] MEDS ORDERED: Magnesium Sulfate 2 GM IV* 2 GM/50 ML BAG IVPB ONE (08:24)
--- NOTE | 2019-05-04 12:45 | PN ---
Subjective Date of Service: 05/04/19 Interval History: Patient seen this morning, no distress. her WBC on her CBC this morning up to 16,000. no fever. Will send for CXR and Urinalysis. Still waiting for bed from [facility]. Her labs and electrolytes being corrected. Picc line placed. Nutrition consult obtained for nutritional support for tube feed and rate Past Medical History: Unchanged from Admission Objective Active Medications: Amlodipine Besylate (Norvasc Tab*) 5 mg PO QPM [facility] Last Admin: 05/03/19 17:08 Dose: 5 mg Calcium Carbonate (Calcium Carbonate Liq*) 1,250 mg PO TID [facility] Stop: 05/06/19 08:59 Last Admin: 05/04/19 07:52 Dose: 1,250 mg Enoxaparin Sodium (Lovenox(*)) 40 mg SUBCUT Q24H [facility] Last Admin: 05/03/19 13:23 Dose: 40 mg Fentanyl (Duragesic Patch 25 Mcg/Hr*) 25 mcg TRANSDERM Q72H [facility] Last Admin: 05/02/19 19:47 Dose: 25 mcg Fentanyl (Duragesic Patch 12 Mcg/Hr *) 12 mcg TRANSDERM Q72H [facility] Last Admin: 05/02/19 19:48 Dose: 12 mcg Heparin Sodium (Porcine) (Heparin Flush Picc/Ml/Cvc(*)) 1 - 3 ml FLUSH 0600, 1800 [facility]; Protocol Hydralazine HCl (Apresoline Iv*) 5 mg IV SLOW PU Q6H PRN PRN Reason: BLOOD PRESSURE Last Admin: 05/03/19 12:15 Dose: 5 mg Potassium Phosphate 15 mmole/ (Sodium Chloride) 255 mls @ 42 mls/hr IVPB ONCE ONE Stop: 05/04/19 14:28 Last Admin: 05/04/19 12:35 Dose: 42 mls/hr Lorazepam (Ativan Inj*) 0.5 mg IV PUSH Q6H PRN PRN Reason: ANXIETY Last Admin: 05/04/19 03:57 Dose: 0.5 mg Magnesium Oxide (Magox 400 Tab*) 800 mg PO TID [facility] Stop: 05/06/19 08:59 Last Admin: 05/04/19 07:52 Dose: 800 mg Metoprolol Tartrate (Lopressor Tab*) 25 mg PO BID [facility] Last Admin: 05/04/19 07:59 Dose: 25 mg Miscellaneous (Ativan Pyxis Cramer) 1 ea N/A .ATIVAN IV CRAMER PRN PRN Reason: PYXIS CRAMER Morphine Sulfate (Morphine Inj (Syringe)*) 4 mg IV Q2H PRN PRN Reason: SEVERE PAIN Last Admin: 05/04/19 10:30 Dose: 4 mg Ondansetron HCl (Zofran Inj*) 4 mg IV Q6H PRN PRN Reason: NAUSEA Last Admin: 05/04/19 07:46 Dose: 4 mg Pharmacy Profile Note (Fentanyl Patch Check Q Shift) 1 note FOLLOW UP 0 [facility] Last Admin: 05/04/19 07:07 Dose: 1 note Pharmacy Profile Note (Fentanyl Patch Check Q Shift) 1 note FOLLOW UP 1899 [facility] Last Admin: 05/04/19 07:07 Dose: 1 note Potassium Chloride (Potassium Chloride Liquid) 20 meq PO DAILY [facility] Last Admin: 05/04/19 09:45 Dose: Not Given Potassium Phos/Sodium Phos (Neutra Phos 250 Mg Rodo*) 250 mg PO QID [facility] Last Admin: 05/04/19 07:53 Dose: 250 mg Prochlorperazine Edisylate (Compazine Inj*) 5 mg IV Q6H PRN PRN Reason: NAUSEA/VOMITING Last Admin: 05/02/19 19:17 Dose: 5 mg Vital Signs - 8 hr 05/04/19 05/04/19 05/04/19 05:00 05:35 05:38 Pulse Rate 93 Respiratory 13 16 15 Rate Blood Pressure 136/72 (mmHg) O2 Sat by Pulse 92 Oximetry 05/04/19 05/04/19 05/04/19 06:00 06:03 07:00 Pulse Rate 92 Respiratory 14 13 14 Rate Blood Pressure 113/84 (mmHg) O2 Sat by Pulse 93 Oximetry 05/04/19 05/04/19 05/04/19 07:01 07:46 08:00 Pulse Rate 87 Respiratory 24 21 16 Rate Blood Pressure 157/86 (mmHg) O2 Sat by Pulse 93 Oximetry 05/04/19 05/04/19 05/04/19 08:01 09:00 10:00 Pulse Rate 111 87 82 Respiratory 19 20 15 Rate Blood Pressure 135/92 127/92 111/73 (mmHg) O2 Sat by Pulse 91 92 94 Oximetry 05/04/19 10:30 Pulse Rate Respiratory 21 Rate Blood Pressure (mmHg) O2 Sat by Pulse Oximetry Oxygen Devices in Use Now: Tracheostomy Collar Appearance: Awake,alert... no distress. tolerating tube feed and ETT good. on anxiolytic and pain medications Eyes: No Scleral Icterus, - - EOMI Ears/Nose/Mouth/Throat: Mucous Membranes Moist, - - Tach collar in place Neck: - - Trach collar, NGT in place. Respiratory: Symmetrical Chest Expansion and Respiratory Effort, - - transmitted upper airway breathsounds Cardiovascular: NL Sounds; No Murmurs; No JVD, No Edema Abdominal: NL Sounds; No Tenderness; No Distention Extremities: No Edema Skin: No Rash or Ulcers Neurological: Alert and Oriented x 3 - Nutrition: Malnutrition Diagnosis/Plan Malnutrition Assessment by Registered Dietitian: Malnutrition Assessment Clinical Characteristics Chronic,Severe Malnutrition Assessment: Inadequate Oral Intake - Pt reports poor intake Criteria x1 mo w/ inability to swallow; consumed 0% B this AM - Anticipate meeting <75% nutrient needs x1 mo (severe) Unintentional Weight Loss - Pt reports wt loss x1 mo; current wt 117lb, UBW 135lb x1 mo ago - 13.3% loss x1 mo (severe) Malnutrition Assessment: Nutrient Delivery - Given inability to swallow w Interventions / otherwise usable GI tract and malnourished status, recommend initiating TF as able; see Nutrition Assessment under Patient Care tab for recommendations; will make further recommendations as indicated Texture Modification - Per RADIAL DRILL PRESS OPERATOR FOR PLASTIC, recommend allowing only small sips of thin liquids and consideration for nutrition support; will monitor tolerance to sips of thin liquids and recommend RADIAL DRILL PRESS OPERATOR [employer] f/u as indicated Malnutrition Assessment: Goals 1) Recommend initiating TF as able 2) Pt will tolerate least restrictive dietary textures w/o further difficulty swallowing 3) Adequate po intake/enteral infusion to support lean body mass and hydration status 4) Improve fluid/electrolyte balance w/ adequate po intake/enteral infusion and repletion PRN 5) Maintain bowel regularity w/ adequate po intake/enteral infusion w/o development of diarrhea/constipation Result Diagrams: 05/04/19 05:47 05/04/19 06:40 Microbiology and Other Data: Microbiology 04/27/19 04:05 Urine Culture - Final Urine No Growth (<1,000 CFU/mL) Assess/Plan/Problems-Billing Assessment: Patient is a 64yo female with no significant PMH who was found to have a neck mass consistent with an aggressive malignancy s/p Tracheostomy on 05/02/19. S/ p Left Parapharyngeal mass biopsy 05/02/19 final biopsy report is pending. 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 Arrington (our pathologist). Awaiting bed acceptance at [facility] as per their request. Accepting physician is Dr. Damir Ivan Oncologist - Patient Problems (1) Neck mass Current Visit: Yes Status: Acute Code(s): R22.1 - LOCALIZED SWELLING, MASS AND LUMP, NECK SNOMED Code(s): 191193860 Comment: - Likely malignancy, s/p FNA unfortunately the Pathology not diagnostic - s/p incisional biopsy Tracheostomy POD # 2. 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 I did request to have the slide available to be send to [facility] attention for Dr. Damir Ivan Oncologist - Severe pain, treat with Morphine and fentanyl patch. (2) Dysphagia Current Visit: Yes Status: Acute Code(s): R13.10 - DYSPHAGIA, UNSPECIFIED SNOMED Code(s): 40736145 Comment: - NG tube inserted by ENT 04/30/19 - Tube feedings, now at 40ml/hr. Will increase to 55 ml/hr (3) Electrolyte disturbance Current Visit: Yes Status: Acute Code(s): E87.8 - OTH DISORDERS OF ELECTROLYTE AND FLUID BALANCE, NEC SNOMED Code(s): 019074830 Comment: - Supplement peripheral and via NGT - Will f/u BMP bid for now as we supplementing her electrolytes (4) Hypertension Current Visit: Yes Status: Acute Code(s): I10 - ESSENTIAL (PRIMARY) HYPERTENSION SNOMED Code(s): 68093357 Comment: - Lopressor 25 mg bid and amlodpine 5 mg daily (5) DVT prophylaxis Current Visit: Yes Status: Acute Code(s): Z29.9 - ENCOUNTER FOR PROPHYLACTIC MEASURES, UNSPECIFIED SNOMED Code(s): 782686753 Comment: - Lovenox subq Status and Disposition: Inpatient for management of Neck Mass.
[2019-05-04] MEDS ORDERED: Ibuprofen TAB* 600 MG PO PRN (13:42)
[2019-05-04] MEDS ORDERED: Acetaminophen TAB* 325 MG PO PRN (13:42)
[2019-05-04] MEDS: Enoxaparin(*) 40 MG/0.4 ML SYR SUBCUT SCH (14:00)
[2019-05-04 18:37] LABS: BUN/Creatinine Ratio 30.4 (8-20); Calcium 7.8 mg/dL (8.6-10.3); EGFR African American 166.6 (>60); EGFR Non-African American 137.6 (>60); Magnesium 2.1 mg/dL (1.9-2.7); Phosphorus 3.1 mg/dL (2.5-5.0); Potassium 4.4 mmol/L (3.5-5.0)
--- NOTE | 2019-05-04 18:42 | PN ---
Progress Note - Progress Note Date of Service: 05/04/19 SOAP: Subjective: []Continued pain, no change. Has trach and J tube. Acetaminophen (Tylenol Tab*) 650 mg PO Q4H PRN PRN Reason: PAIN Last Admin: 05/04/19 14:01 Dose: 650 mg Amlodipine Besylate (Norvasc Tab*) 5 mg PO QPM [facility] Last Admin: 05/03/19 17:08 Dose: 5 mg Calcium Carbonate (Calcium Carbonate Liq*) 1,250 mg PO TID [facility] Stop: 05/06/19 08:59 Last Admin: 05/04/19 14:00 Dose: 1,250 mg Enoxaparin Sodium (Lovenox(*)) 40 mg SUBCUT Q24H [facility] Last Admin: 05/04/19 14:00 Dose: 40 mg Fentanyl (Duragesic Patch 25 Mcg/Hr*) 25 mcg TRANSDERM Q72H [facility] Last Admin: 05/02/19 19:47 Dose: 25 mcg Fentanyl (Duragesic Patch 12 Mcg/Hr *) 12 mcg TRANSDERM Q72H [facility] Last Admin: 05/02/19 19:48 Dose: 12 mcg Heparin Sodium (Porcine) (Heparin Flush Picc/Ml/Cvc(*)) 1 - 3 ml FLUSH 0600, 1800 [facility]; Protocol Last Admin: 05/04/19 18:10 Dose: Not Given Hydralazine HCl (Apresoline Iv*) 5 mg IV SLOW PU Q6H PRN PRN Reason: BLOOD PRESSURE Last Admin: 05/03/19 12:15 Dose: 5 mg Ibuprofen (Motrin Tab*) 600 mg PO Q6H PRN PRN Reason: PAIN Lorazepam (Ativan Inj*) 0.5 mg IV PUSH Q6H PRN PRN Reason: ANXIETY Last Admin: 05/04/19 03:57 Dose: 0.5 mg Magnesium Oxide (Magox 400 Tab*) 800 mg PO TID [facility] Stop: 05/06/19 08:59 Last Admin: 05/04/19 14:01 Dose: 800 mg Metoprolol Tartrate (Lopressor Tab*) 25 mg PO BID [facility] Last Admin: 05/04/19 07:59 Dose: 25 mg Miscellaneous (Ativan Pyxis Cramer) 1 ea N/A .ATIVAN IV CRAMER PRN PRN Reason: PYXIS CRAMER Morphine Sulfate (Morphine Inj (Syringe)*) 4 mg IV Q2H PRN PRN Reason: SEVERE PAIN Last Admin: 05/04/19 16:51 Dose: 4 mg Ondansetron HCl (Zofran Inj*) 4 mg IV Q6H PRN PRN Reason: NAUSEA Last Admin: 05/04/19 07:46 Dose: 4 mg Pharmacy Profile Note (Fentanyl Patch Check Q Shift) 1 note FOLLOW UP 0700, 1900 [facility] Last Admin: 05/04/19 07:07 Dose: 1 note Pharmacy Profile Note (Fentanyl Patch Check Q Shift) 1 note FOLLOW UP 0700, 1900 [facility] Last Admin: 05/04/19 07:07 Dose: 1 note Potassium Chloride (Potassium Chloride Liquid) 20 meq PO DAILY [facility] Last Admin: 05/04/19 09:45 Dose: Not Given Potassium Phos/Sodium Phos (Neutra Phos 250 Mg Rodo*) 250 mg PO QID [facility] Last Admin: 05/04/19 18:16 Dose: Not Given Prochlorperazine Edisylate (Compazine Inj*) 5 mg IV Q6H PRN PRN Reason: NAUSEA/VOMITING Last Admin: 05/02/19 19:17 Dose: 5 mg Objective: [] Vital Signs Temp Pulse Resp BP Pulse Ox 99 F 91 18 150/72 96 05/04/19 18:13 05/04/19 18:13 05/04/19 18:13 05/04/19 18:13 05/04/19 18:13 HEENT: Trach, palpable mass J tube CTA RRR S1S2 +BS NT ND Ext w/o edema Neuro alert and responsive Pathology small cell neuro-endocrine cancer. Assessment: []64 year old with new diagnosis neuroendocrine cancer of the oropharynx. Family meeting to discuss diagnosis and care was discussed at length with team at [facility]. ddx: de-jenny small cell cancer or basiliod cancer degenerating into small cell. Recommended [place] [facility] [place] Cisplatin and Etoposide chemotherapy on Tuesday as in patient. Expect improvement on therapy and hope she would be discharged over the next week. Treatment in total would be 6 cycles of chemotherapy. Radiation would start with C2 and go for 5-6 weeks. In reviewing case with [facility], on transfer they will be able to start chemotherapy by mid next week. Reassured family that this is not a clinically meaningful delay. Plan: []1, Transfer to [facility] on Tuesday for therapy next week. 2. Case signed out to medical oncology at [facility], we are available in future if needed for local support. time spent 40 min at bedside.
[2019-05-04] MEDS: amLODIPine TAB* 5 MG PO SCH (21:42)
[2019-05-05] MEDS: Morphine INJ* 4 MG/ML 1 ML SYRINGE (NEW SYRINGE VERSION) IV PRN ×10 (00:06→23:47)
[2019-05-05 01:16] LABS: Urine Appearance Cloudy; Urine Bilirubin Negative (Negative); Urine Blood Negative (Negative); Urine Color Yellow; Urine Glucose Negative (Negative); Urine Ketones Negative (Negative); Urine Nitrite Negative (Negative); Urine Protein Negative (Negative); Urine Specific Gravity 1.012 (1.010-1.030); Urine Urobilinogen Negative (Negative)
[2019-05-05] MEDS: Ondansetron INJ* 2 MG/ML VIAL IV PRN ×2 (02:13→21:43)
[2019-05-05] MEDS: LORazepam INJ* 2 MG/ML 1 ML VIAL IV PUSH PRN ×2 (04:15→18:04)
[2019-05-05] MEDS: fentaNYL Patch Check Q Shift 1 NOTE FOLLOW UP SCH ×6 (06:35→19:44)
[2019-05-05] MEDS: Calcium Carbonate LIQ* 1,250 MG/5 ML UDC PO SCH (09:09)
[2019-05-05] MEDS: Metoprolol Tartrate TAB* 25 MG PO SCH ×2 (09:09→21:17)
[2019-05-05] MEDS: Potassium Chloride* LIQUID 20 MEQ/15 ML UDC PO SCH (09:09)
[2019-05-05] MEDS: Magnesium Oxide TAB* 400 MG PO SCH ×3 (09:09→21:18)
[2019-05-05] MEDS: Potassium & Sodium Phos 250MG* = 1 PACKET PO SCH ×4 (09:10→21:17)
[2019-05-05 09:20] LABS: ABS Lymphocytes 0.5 10^3/ul (1.0-4.8); ABS Neutrophils 13.6 10^3/ul (1.5-7.7); Eosinophil % 0.1 %; Hematocrit 32 % (35-47); Hemoglobin 10.6 g/dL (12.0-16.0); Lymphocyte % 3.3 %; Mean Corpuscular HGB Conc 34 g/dL (31-36); Mean Corpuscular Hemoglobin 29 pg (27-31); Mean Corpuscular Volume 85 fL (80-97); Platelet Count 392 10^3/uL (150-450); Red Cell Distribution Width 13 % (10-15); White Blood Count 15.1 10^3/uL (3.5-10.8)
[2019-05-05 09:33] LABS: BUN/Creatinine Ratio 27.1 (8-20); Calcium 8.3 mg/dL (8.6-10.3); EGFR African American 158.6 (>60); Magnesium 1.7 mg/dL (1.9-2.7); Phosphorus 2.6 mg/dL (2.5-5.0)
[2019-05-05] MEDS: Enoxaparin(*) 40 MG/0.4 ML SYR SUBCUT SCH (12:59)
--- NOTE | 2019-05-05 15:41 | PN ---
Subjective Date of Service: 05/05/19 Interval History: Patient seen today, she moved to [facility] yesterday. Awake and respond to command and exam appropriately. No events overnight. She does have pain with movement located at the tumor site on her left posterior neck and posterior to her ear. NGT in place, Tube feed at 55 ml/hr Jevity 1.2. electrolytes being replaced and adjusted daily accordingly. Her WBC now 16,000-15,000 with no fever and UA and CXR negative. I did speak to the transfer center, accepted for transfer today. However; no bed as of today. Will call tomorrow around 10:00 am to check on bed status. I appreciate input from Dr. Mckinley Rivera who spoke with [facility] and at this time his recommendation to initiate treatment inpatient and as per family request they elected to initiate treatment at [facility]. Past Medical History: Unchanged from Admission Objective Active Medications: Acetaminophen (Tylenol Tab*) 650 mg PO Q4H PRN PRN Reason: PAIN Last Admin: 05/04/19 14:01 Dose: 650 mg Amlodipine Besylate (Norvasc Tab*) 5 mg PO QPM [facility] Last Admin: 05/04/19 21:42 Dose: 5 mg Calcium Carbonate (Calcium Carbonate Liq*) 1,250 mg PO BID [facility] Stop: 05/12/19 20:59 Enoxaparin Sodium (Lovenox(*)) 40 mg SUBCUT Q24H [facility] Last Admin: 05/05/19 12:59 Dose: 40 mg Fentanyl (Duragesic Patch 25 Mcg/Hr*) 25 mcg TRANSDERM Q72H [facility] Last Admin: 05/02/19 19:47 Dose: 25 mcg Fentanyl (Duragesic Patch 12 Mcg/Hr *) 12 mcg TRANSDERM Q72H [facility] Last Admin: 05/02/19 19:48 Dose: 12 mcg Heparin Sodium (Porcine) (Heparin Flush Picc/Ml/Cvc(*)) 1 - 3 ml FLUSH 0600, 1800 [facility]; Protocol Last Admin: 05/05/19 04:15 Dose: 1 ml Hydralazine HCl (Apresoline Iv*) 5 mg IV SLOW PU Q6H PRN PRN Reason: BLOOD PRESSURE Last Admin: 05/03/19 12:15 Dose: 5 mg Ibuprofen (Motrin Tab*) 600 mg PO Q6H PRN PRN Reason: PAIN Lorazepam (Ativan Inj*) 0.5 mg IV PUSH Q6H PRN PRN Reason: ANXIETY Last Admin: 05/05/19 04:15 Dose: 0.5 mg Magnesium Oxide (Magox 400 Tab*) 800 mg PO TID [facility] Stop: 05/06/19 08:59 Last Admin: 05/05/19 14:12 Dose: 800 mg Metoprolol Tartrate (Lopressor Tab*) 25 mg PO BID [facility] Last Admin: 05/05/19 09:09 Dose: 25 mg Miscellaneous (Ativan Pyxis Rush) 1 ea N/A .ATIVAN IV RUSH PRN PRN Reason: PYXIS RUSH Morphine Sulfate (Morphine Inj (Syringe)*) 4 mg IV Q2H PRN PRN Reason: SEVERE PAIN Last Admin: 05/05/19 15:07 Dose: 4 mg Ondansetron HCl (Zofran Inj*) 4 mg IV Q6H PRN PRN Reason: NAUSEA Last Admin: 05/05/19 02:13 Dose: 4 mg Pharmacy Profile Note (Fentanyl Patch Check Q Shift) 1 note FOLLOW UP 0700, 1900 [facility] Last Admin: 05/05/19 14:37 Dose: 1 note Pharmacy Profile Note (Fentanyl Patch Check Q Shift) 1 note FOLLOW UP 0700, 1900 [facility] Last Admin: 05/05/19 14:38 Dose: 1 note Potassium Chloride (Potassium Chloride Liquid) 20 meq PO DAILY [facility] Last Admin: 05/05/19 09:09 Dose: 20 meq Potassium Phos/Sodium Phos (Neutra Phos 250 Mg Rodo*) 250 mg PO QID [facility] Last Admin: 05/05/19 12:59 Dose: 250 mg Prochlorperazine Edisylate (Compazine Inj*) 5 mg IV Q6H PRN PRN Reason: NAUSEA/VOMITING Last Admin: 05/02/19 19:17 Dose: 5 mg Vital Signs - 8 hr 05/05/19 05/05/19 05/05/19 07:55 08:00 08:43 Temperature 98.9 F Pulse Rate 105 Respiratory 20 20 16 Rate Blood Pressure 131/75 (mmHg) O2 Sat by Pulse 91 Oximetry 05/05/19 05/05/19 05/05/19 08:46 09:31 10:47 Temperature Pulse Rate Respiratory 20 20 16 Rate Blood Pressure (mmHg) O2 Sat by Pulse Oximetry 05/05/19 05/05/19 05/05/19 11:25 12:52 14:02 Temperature 98.9 F Pulse Rate 91 Respiratory 18 20 16 Rate Blood Pressure 148/83 (mmHg) O2 Sat by Pulse 95 Oximetry 05/05/19 05/05/19 14:03 15:07 Temperature Pulse Rate Respiratory 18 20 Rate Blood Pressure (mmHg) O2 Sat by Pulse Oximetry Oxygen Devices in Use Now: Tracheostomy Collar Appearance: Awake, alert Oriented. No distress, in some pain adequately treated with morphine Eyes: No Scleral Icterus, - - EOMI Ears/Nose/Mouth/Throat: Mucous Membranes Moist, - - Trach collar, NGT in place Neck: NL Appearance and Movements; NL JVP, Trachea Midline Respiratory: Symmetrical Chest Expansion and Respiratory Effort, Clear to Auscultation Cardiovascular: NL Sounds; No Murmurs; No JVD, RRR, No Edema Abdominal: NL Sounds; No Tenderness; No Distention Extremities: No Edema - Nutrition: Malnutrition Diagnosis/Plan Malnutrition Assessment by Registered Dietitian: Malnutrition Assessment Clinical Characteristics Chronic,Severe Malnutrition Assessment: Inadequate Oral Intake - Pt reports poor intake Criteria x1 mo w/ inability to swallow; consumed 0% B this AM - Anticipate meeting <75% nutrient needs x1 mo (severe) Unintentional Weight Loss - Pt reports wt loss x1 mo; current wt 117lb, UBW 135lb x1 mo ago - 13.3% loss x1 mo (severe) Malnutrition Assessment: Nutrient Delivery - Given inability to swallow w Interventions / otherwise usable GI tract and malnourished status, recommend initiating TF as able; see Nutrition Assessment under Patient Care tab for recommendations; will make further recommendations as indicated Texture Modification - Per ASSISTANT WOMEN'S SOCCER COACH, recommend allowing only small sips of thin liquids and consideration for nutrition support; will monitor tolerance to sips of thin liquids and recommend ASSISTANT WOMEN'S SOCCER COACH f/u as indicated Malnutrition Assessment: Goals 1) Recommend initiating TF as able 2) Pt will tolerate least restrictive dietary textures w/o further difficulty swallowing 3) Adequate po intake/enteral infusion to support lean body mass and hydration status 4) Improve fluid/electrolyte balance w/ adequate po intake/enteral infusion and repletion PRN 5) Maintain bowel regularity w/ adequate po intake/enteral infusion w/o development of diarrhea/constipation Result Diagrams: 05/05/19 09:05 05/05/19 09:05 Microbiology and Other Data: Microbiology 04/27/19 04:05 Urine Culture - Final Urine No Growth (<1,000 CFU/mL) Assess/Plan/Problems-Billing Assessment: Patient is a 64yo female with no significant PMH who was found to have a neck mass consistent with an aggressive malignancy s/p Tracheostomy on 05/02/19. S/ p Left Parapharyngeal mass biopsy 05/02/19 final biopsy report is pending. 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 Arrington (our pathologist). Awaiting bed acceptance at [facility] as per their request. Accepting physician is Dr. Damir Ivan Oncologist - Patient Problems (1) Neck mass Current Visit: Yes Status: Acute Code(s): R22.1 - LOCALIZED SWELLING, MASS AND LUMP, NECK SNOMED Code(s): 199943854 Comment: - Likely malignancy, s/p FNA unfortunately the Pathology not diagnostic - s/p Incisional biopsy Tracheostomy POD # 3. 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 The slide available Have been send to [facility] on 05/04/19 am and they were sent overnight to [facility] attention for Dr. Damir Ivan Oncologist - Her Severe pain, treated with Morphine and fentanyl patch. (2) Dysphagia Current Visit: Yes Status: Acute Code(s): R13.10 - DYSPHAGIA, UNSPECIFIED SNOMED Code(s): 11881112 Comment: - NG tube inserted by ENT 04/30/19 - Tube feedings, increased to 55 ml/hr (3) Electrolyte disturbance Current Visit: Yes Status: Acute Code(s): E87.8 - OTH DISORDERS OF ELECTROLYTE AND FLUID BALANCE, NEC SNOMED Code(s): 839272860 Comment: - Supplement peripheral and via NGT - Will f/u BMP daily for now as we supplementing her electrolytes (4) Hypertension Current Visit: Yes Status: Acute Code(s): I10 - ESSENTIAL (PRIMARY) HYPERTENSION SNOMED Code(s): 27371213 Comment: - Lopressor 25 mg bid and amlodpine 5 mg daily (5) DVT prophylaxis Current Visit: Yes Status: Acute Code(s): Z29.9 - ENCOUNTER FOR PROPHYLACTIC MEASURES, UNSPECIFIED SNOMED Code(s): 442393165 Comment: - Lovenox subq Status and Disposition: Inpatient for management of Neck Mass.
[2019-05-05] MEDS: amLODIPine TAB* 5 MG PO SCH (17:15)
[2019-05-05] MEDS: fentaNYL PATCH 12 MCG/HR TRANSDERM SCH (20:58)
[2019-05-05] MEDS: fentaNYL PATCH 25 MCG/HR TRANSDERM SCH (20:59)
[2019-05-05] MEDS ORDERED: Calcium Carbonate LIQ* 1,250 MG/5 ML UDC PO SCH (21:00)
[2019-05-06] MEDS: Morphine INJ* 4 MG/ML 1 ML SYRINGE (NEW SYRINGE VERSION) IV PRN ×5 (02:17→14:06)
[2019-05-06 05:54] LABS: ABS Lymphocytes 0.7 10^3/ul (1.0-4.8); ABS Neutrophils 12.4 10^3/ul (1.5-7.7); Eosinophil % 0.2 %; Hematocrit 32 % (35-47); Mean Corpuscular HGB Conc 35 g/dL (31-36); Mean Corpuscular Hemoglobin 30 pg (27-31); Mean Corpuscular Volume 86 fL (80-97); Platelet Count 455 10^3/uL (150-450); Red Blood Count 3.71 10^6 /uL (3.70-4.87); Red Cell Distribution Width 13 % (10-15); White Blood Count 14.1 10^3/uL (3.5-10.8)
[2019-05-06 06:22] LABS: BUN/Creatinine Ratio 22.9 (8-20); Calcium 9.1 mg/dL (8.6-10.3); EGFR African American 158.6 (>60); Magnesium 1.6 mg/dL (1.9-2.7); Phosphorus 3.6 mg/dL (2.5-5.0); Potassium 4.2 mmol/L (3.5-5.0)
[2019-05-06] MEDS: fentaNYL Patch Check Q Shift 1 NOTE FOLLOW UP SCH ×2 (07:15)
[2019-05-06] MEDS ORDERED: Magnesium Sulfate 2 GM IV* 2 GM/50 ML BAG IVPB ONE (08:30)
[2019-05-06] MEDS ORDERED: Calcium Carbonate LIQ* 1,250 MG/5 ML UDC PO SCH (09:00)
[2019-05-06] MEDS ORDERED: Potassium & Sodium Phos 250MG* = 1 PACKET PO SCH (09:00)
[2019-05-06] MEDS ORDERED: Pantoprazole IV* 40 MG IV SCH (09:00)
[2019-05-06] MEDS ORDERED: Metoprolol Tartrate TAB* 50 mg PO SCH (09:00)
[2019-05-06] MEDS: Potassium Chloride* LIQUID 20 MEQ/15 ML UDC PO SCH (09:33)
[2019-05-06 11:47] VITALS: BP 155/80
[2019-05-06] MEDS: Enoxaparin(*) 40 MG/0.4 ML SYR SUBCUT SCH (12:08)
--- NOTE | 2019-05-06 12:22 | PN ---
Subjective Date of Service: 05/06/19 Interval History: Patient seen today. she was able to get out of bed. Her at bedside assisting her with her personal hygiene. NGT and Trach collar in place. No events overnight. Her blood pressure and pulse slightly elevated (regular). Pain adequately controlled with Fentanyl and prn morphine. She got accepted and we got bed offer at [facility]. Past Medical History: Unchanged from Admission Objective Active Medications: Acetaminophen (Tylenol Tab*) 650 mg PO Q4H PRN PRN Reason: PAIN Last Admin: 05/04/19 14:01 Dose: 650 mg Amlodipine Besylate (Norvasc Tab*) 5 mg PO QPM [facility] Last Admin: 05/05/19 17:15 Dose: 5 mg Calcium Carbonate (Calcium Carbonate Liq*) 1,250 mg PO DAILY [facility] Stop: 05/13/19 08:59 Last Admin: 05/06/19 09:36 Dose: 1,250 mg Enoxaparin Sodium (Lovenox(*)) 40 mg SUBCUT Q24H [facility] Last Admin: 05/06/19 12:08 Dose: 40 mg Fentanyl (Duragesic Patch 25 Mcg/Hr*) 25 mcg TRANSDERM Q72H [facility] Last Admin: 05/05/19 20:59 Dose: 25 mcg Fentanyl (Duragesic Patch 12 Mcg/Hr *) 12 mcg TRANSDERM Q72H [facility] Last Admin: 05/05/19 20:58 Dose: 12 mcg Heparin Sodium (Porcine) (Heparin Flush Picc/Ml/Cvc(*)) 1 - 3 ml FLUSH 0600, 1800 [facility]; Protocol Last Admin: 05/06/19 12:09 Dose: 1 ml Hydralazine HCl (Apresoline Iv*) 5 mg IV SLOW PU Q6H PRN PRN Reason: BLOOD PRESSURE Last Admin: 05/03/19 12:15 Dose: 5 mg Ibuprofen (Motrin Tab*) 600 mg PO Q6H PRN PRN Reason: PAIN Lorazepam (Ativan Inj*) 0.5 mg IV PUSH Q6H PRN PRN Reason: ANXIETY Last Admin: 05/05/19 18:04 Dose: 0.5 mg Metoprolol Tartrate (Lopressor Tab*) 50 mg PO BID [facility] Last Admin: 05/06/19 09:34 Dose: 50 mg Miscellaneous (Ativan Pyxis Cramer) 1 ea N/A .ATIVAN IV CRAMER PRN PRN Reason: PYXIS CRAMER Morphine Sulfate (Morphine Inj (Syringe)*) 4 mg IV Q2H PRN PRN Reason: SEVERE PAIN Last Admin: 05/06/19 12:08 Dose: 4 mg Ondansetron HCl (Zofran Inj*) 4 mg IV Q6H PRN PRN Reason: NAUSEA Last Admin: 05/05/19 21:43 Dose: 4 mg Pantoprazole Sodium (Protonix Iv*) 40 mg IV BID [facility] Last Admin: 05/06/19 09:33 Dose: 40 mg Pharmacy Profile Note (Fentanyl Patch Check Q Shift) 1 note FOLLOW UP 0700, 1900 [facility] Last Admin: 05/06/19 07:15 Dose: 1 note Pharmacy Profile Note (Fentanyl Patch Check Q Shift) 1 note FOLLOW UP 0700, 1900 [facility] Last Admin: 05/06/19 07:15 Dose: 1 note Potassium Chloride (Potassium Chloride Liquid) 20 meq PO DAILY [facility] Last Admin: 05/06/19 09:33 Dose: 20 meq Potassium Phos/Sodium Phos (Neutra Phos 250 Mg Rodo*) 250 mg PO BID [facility] Last Admin: 05/06/19 09:33 Dose: 250 mg Prochlorperazine Edisylate (Compazine Inj*) 5 mg IV Q6H PRN PRN Reason: NAUSEA/VOMITING Last Admin: 05/02/19 19:17 Dose: 5 mg Vital Signs - 8 hr 05/06/19 05/06/19 05/06/19 07:13 07:42 07:50 Temperature 98.7 F Pulse Rate 87 Respiratory 16 16 16 Rate Blood Pressure 139/81 (mmHg) O2 Sat by Pulse 97 Oximetry 05/06/19 05/06/19 05/06/19 09:32 10:14 11:28 Temperature Pulse Rate Respiratory 16 16 Rate Blood Pressure (mmHg) O2 Sat by Pulse 97 Oximetry 05/06/19 05/06/19 11:45 12:08 Temperature 98.1 F Pulse Rate 79 Respiratory 16 16 Rate Blood Pressure 155/80 (mmHg) O2 Sat by Pulse 100 Oximetry Oxygen Devices in Use Now: Tracheostomy Collar Appearance: Awake, alert in distress. NGT and Trach collar uncuffed Eyes: No Scleral Icterus, - - EOMI Ears/Nose/Mouth/Throat: NL Teeth, Lips, Gums, Mucous Membranes Moist, - - Tach collar Neck: - - Tach collar Respiratory: Symmetrical Chest Expansion and Respiratory Effort, - - no rhonchi , transmitted upper airway breath sound, cleared post coughing and secretion Cardiovascular: NL Sounds; No Murmurs; No JVD, No Edema Abdominal: NL Sounds; No Tenderness; No Distention Extremities: No Edema Skin: No Rash or Ulcers Neurological: Alert and Oriented x 3 - Nutrition: Malnutrition Diagnosis/Plan Malnutrition Assessment by Registered Dietitian: Malnutrition Assessment Clinical Characteristics Chronic,Severe Malnutrition Assessment: Inadequate Oral Intake - Pt reports poor intake Criteria x1 mo w/ inability to swallow; consumed 0% B this AM - Anticipate meeting <75% nutrient needs x1 mo (severe) Unintentional Weight Loss - Pt reports wt loss x1 mo; current wt 117lb, UBW 135lb x1 mo ago - 13.3% loss x1 mo (severe) Malnutrition Assessment: Nutrient Delivery - Given inability to swallow w Interventions / otherwise usable GI tract and malnourished status, recommend initiating TF as able; see Nutrition Assessment under Patient Care tab for recommendations; will make further recommendations as indicated Texture Modification - Per SILK WORKER, recommend allowing only small sips of thin liquids and consideration for nutrition support; will monitor tolerance to sips of thin liquids and recommend SILK WORKER f/u as indicated Malnutrition Assessment: Goals 1) Recommend initiating TF as able 2) Pt will tolerate least restrictive dietary textures w/o further difficulty swallowing 3) Adequate po intake/enteral infusion to support lean body mass and hydration status 4) Improve fluid/electrolyte balance w/ adequate po intake/enteral infusion and repletion PRN 5) Maintain bowel regularity w/ adequate po intake/enteral infusion w/o development of diarrhea/constipation Result Diagrams: 05/06/19 05:42 05/06/19 05:42 Microbiology and Other Data: Microbiology 04/27/19 04:05 Urine Culture - Final Urine No Growth (<1,000 CFU/mL) Assess/Plan/Problems-Billing Assessment: Patient is a 64yo female with no significant PMH who was found to have a neck mass consistent with an aggressive malignancy s/p Tracheostomy on 05/02/19. S/ p Left Parapharyngeal mass biopsy 05/02/19 final biopsy report is pending. 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 Arrington (our pathologist). Awaiting bed acceptance at [facility] as per their request. Accepting physician is Dr. Damir Ivan Oncologist - Patient Problems (1) Neck mass Current Visit: Yes Status: Acute Code(s): R22.1 - LOCALIZED SWELLING, MASS AND LUMP, NECK SNOMED Code(s): 355801567 Comment: - Likely malignancy, s/p FNA unfortunately the Pathology not diagnostic - s/p Incisional biopsy Tracheostomy POD # 4 (Surgery date 05/02/19). 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 The slide available Have been send to [facility] on 05/04/19 am and they were sent overnight to [facility] attention for Dr. Damir Ivan Oncologist - Her Severe pain, treated with Morphine and fentanyl patch. - Accepted with bed offer today. Will proceed with update her discharge transfer work (2) Dysphagia Current Visit: Yes Status: Acute Code(s): R13.10 - DYSPHAGIA, UNSPECIFIED SNOMED Code(s): 41721055 Comment: - NG tube inserted by ENT 04/30/19 - Tube feedings, increased to 55 ml/hr - Continue to follow up electrolytes and renal function daily (3) Electrolyte disturbance Current Visit: Yes Status: Acute Code(s): E87.8 - OTH DISORDERS OF ELECTROLYTE AND FLUID BALANCE, NEC SNOMED Code(s): 344363924 Comment: - Supplement peripheral and via NGT - Will f/u BMP daily for now as we supplementing her electrolytes (4) Hypertension Current Visit: Yes Status: Acute Code(s): I10 - ESSENTIAL (PRIMARY) HYPERTENSION SNOMED Code(s): 63379441 Comment: - Lopressor increased to 50 mg bid today - Continue amlodpine 5 mg daily (5) DVT prophylaxis Current Visit: Yes Status: Acute Code(s): Z29.9 - ENCOUNTER FOR PROPHYLACTIC MEASURES, UNSPECIFIED SNOMED Code(s): 710799317 Comment: - Lovenox subq Status and Disposition: Inpatient for management of Neck Mass.
--- NOTE | 2019-05-06 13:16 | DS ---
UPDATED DISCHARGE SUMMARY: DATE OF ADMISSION: 04/26/19 DATE OF DISCHARGE: 05/06/19 ADDENDUM: An addendum to my discharge summary from 05/03/19 where her discharge was placed on hold pe nding bed availability. The patient was placed on transfer list to [facility] as of 05/03/19 and we have been awaiting a bed availability. We were notified today on 05/06/19 that the bed is available and hence the nursing staff will be initiating [id number] report. The [facility] w ill be notified with the transfer time. Since her transfer summary, which was dictated 05/03/19, the following major changes updated are as follow: For her neck mass and the oropharyngeal airway compromise: She had incisional biopsy with the tracheo stomy done, this is postop day #4 and she had a left parapharyngeal mass final biopsy revealed basalo id squamous cell carcinoma. The slides have been sent to [facility] on 05/04/19, the report has been re viewed with Dr. Damir Ivan. Further discussion between our oncologist, Dr. Mckinley Rivera and the oncol ogist at the [facility] took place 05/04/19 and the plan is to her being evaluated and initiate the viviane tment if deems appropriate once the Oncology Radiology team meets with the family with benefit and ri sk. She is on trach collar, is tolerating it well. For her dysphagia and nutritional deficiency, she is currently on NG tube, Jevity 1.2 at 55 cc/h with electrolytes being supplemented orally and peripherally. As of today, currently she is on calcium 1 250 p.o. daily, this decreased from b.i.d. and her Neutra-Phos decreased from q.i.d. down to 250 b.i. d. today. She is on magnesium oxide t.i.d., still requiring p.r.n. magnesium sulfate IV peripherally . Placed on Protonix as well for GI prophylaxis. For her hypertension and reflex tachycardia, her blood pressure has been maintained with metoprolol 5 0 b.i.d., started today, she was on 25 b.i.d. up until yesterday and amlodipine 5 mg daily, she has b een on it and maintained. Otherwise, remaining of the hospital course was uncomplicated. For further details on her hospital course and admission presentation, please refer to my initial tra nsfer summary dictated on 05/03/19. [id number]/CPS #: [id number]
[2019-05-06] MEDS: Ondansetron INJ* 2 MG/ML VIAL IV PRN (14:07)
== END 2019-05-06 14:20 | disposition short-term general hospital (02) | DRG 98 ==
LOC: ED 10:14 → MED 12:39 → ICU 05-02 18:18 → SSU 05-04 13:18
PROVIDERS: ADMIT Internal Medicine; ATTEND Internal Medicine
PROC: 0JBP3ZX Excision of Left Lower Leg Subcutaneous Tissue and Fascia, Percutaneous Approach, Diagnostic (ICD-10-PCS; 2019-04-26)
PROC: 0C9M0ZX Drainage of Pharynx, Open Approach, Diagnostic (ICD-10-PCS; 2019-05-02)
PROC: 0B110F4 Bypass Trachea to Cutaneous with Tracheostomy Device, Open Approach (ICD-10-PCS; principal; 2019-05-02 15:15)
PROC: 02HV33Z Insertion of Infusion Device into Superior Vena Cava, Percutaneous Approach (ICD-10-PCS; 2019-05-04)
DX: C14.0 Malignant neoplasm of pharynx, unspecified (principal); E43 Unspecified severe protein-calorie malnutrition; C7A.8 Other malignant neuroendocrine tumors; N17.9 Acute kidney failure, unspecified; I10 Essential (primary) hypertension; R00.0 Tachycardia, unspecified; E83.42 Hypomagnesemia; E87.6 Hypokalemia; E83.51 Hypocalcemia; E83.39 Other disorders of phosphorus metabolism; R13.12 Dysphagia, oropharyngeal phase; R74.0 Nonspecific elevation of levels of transaminase and lactic acid dehydrogenase [LDH]; R09.02 Hypoxemia; E86.0 Dehydration; I07.1 Rheumatic tricuspid insufficiency; Z68.20 Body mass index [BMI] 20.0-20.9, adult; Z87.891 Personal history of nicotine dependence; Z79.899 Other long term (current) drug therapy
CPT/HCPCS: 10021; 36415; 70491; 71045; 71046; 71260; 74177; 76705; 80048; 80053; 80076; 81003; 81015; 82232; 83615; 83735; 83970; 84100; 84155; 84165; 85025; 86140; 87086; 87641; 88172; 88173; 88184; 88187; 88188; 88189; 88305; 88331; 88341; 88342; 88360; 93005; 93306; 99223; 99232; 99233; 99284; A9270-GY; J0360; J0610; J0780; J1100; J1650; J1885; J2060; J2250; J2270; J2405; J3010; J3475; J3480; J3489; Q9967

== ENCOUNTER 2021-05-21 20:55 | Inpatient (IN) ==
[2021-05-21] MEDS ORDERED: Ondansetron 4 mg VIAL 2 MG/ML 2 ml VIAL IV ONE ×2 (21:19→22:40)
[2021-05-21 21:25] LABS: Hematocrit 30 % (35-47); Hemoglobin 9.5 g/dL (12.0-16.0); Mean Corpuscular HGB Conc 31 g/dL (31-36); Mean Corpuscular Hemoglobin 25 pg (27-31); Mean Corpuscular Volume 80 fL (80-97); Mean Platelet Volume 7.1 fL (7.4-10.4); Platelet Count 487 10^3/uL (150-450); Red Cell Distribution Width 17 % (10-15); White Blood Count 29.8 10^3/uL (3.5-10.8)
[2021-05-21 21:39] LABS: Activated Partial Thrombo Time 37.5 seconds (26.0-38.0); INR 1.11 (0.86-1.15)
[2021-05-21 21:44] LABS: ALT 45 U/L (7-52); AST 61 U/L (13-39); Albumin/Globulin Ratio 1.3 (1-3); Alkaline Phosphatase 228 U/L (35-149); Anion Gap 13 mmol/L (2-11); Blood Urea Nitrogen 26 mg/dL (6-24); CO2 Carbon Dioxide 26 mmol/L (22-32); Calcium 9.4 mg/dL (8.6-10.3); Chloride 97 mmol/L (101-111); Creatine Kinase 41 U/L (10-223); Globulin 3.2 g/dL (2-4); Glucose 168 mg/dL (70-100); Sodium 136 mmol/L (135-145); Total Protein 7.2 g/dL (6.4-8.9); eGFR CKD-EPI 73.3 (>60)
[2021-05-21] MEDS ORDERED: Cefepime 2 GM in Dextrose 2 GM/50 ML BAG IV ONE (21:45)
[2021-05-21] MEDS ORDERED: Vancomycin 1,000 MG in NS 0.9% 250 ml 250 ML IVPB ONE ×2 (21:45→23:04)
[2021-05-21 21:48] LABS: CKMB ng/mL 0.7 ng/mL (0.6-6.3); Troponin I 0.05 ng/mL (<0.03)
[2021-05-21 21:57] LABS: PCO2 Arterial 37 mmHg (35-45); PO2 Arterial 77 mmHg (80-100)
[2021-05-21] MEDS ORDERED: Vancomycin 1,000 MG BAG/ADDV ONE (22:08)
[2021-05-21] MEDS ORDERED: methylPREDNISolone 125 mg 2 ML VIAL IV ONE (22:55)
[2021-05-21] MEDS ORDERED: LACTATED RINGERS IV SCH (23:00)
[2021-05-21 23:02] LABS: RBC Morphology Normal (Normal); Toxic Granulation 2+
[2021-05-21] MEDS ORDERED: Morphine 2 MG/ML SYRINGE IV PRN (23:02)
[2021-05-21] MEDS ORDERED: Ondansetron 4 mg VIAL 2 MG/ML 2 ml VIAL IV PRN (23:02)
[2021-05-21 23:14] LABS: ABS Neutrophils 21.8 10^3/ul (1.5-7.7)
[2021-05-21 23:16] LABS: ABS Lymphocytes 7.1 10^3/ul (1.0-4.8); ABS Monocytes 0.9 10^3/ul (0-0.8)
[2021-05-21 23:21] LABS: Dohle Bodies Present
[2021-05-21] MEDS: Pantoprazole VIAL 40 MG VIAL IV SCH (23:33)
[2021-05-21] MEDS ORDERED: Vancomycin per Pharmacy 1 EA NOTE FOLLOW UP SCH (23:45)
[2021-05-21] MEDS ORDERED: Enoxaparin 30 MG/0.3 ML SYR SUBCUT SCH (23:45)
[2021-05-22] MEDS ORDERED: Lactated Ringers 1000 ml BAG 1,000 ML IV ONE ×2 (00:01→02:31)
[2021-05-22] MEDS ORDERED: Iodixanol (CONTRAST) 320 MG/ML 100 ML SDV IV ONE (01:04)
[2021-05-22 02:30] LABS: Troponin I 0.06 ng/mL (<0.03)
[2021-05-22] MEDS: Chlorhexidine MOUTHWASH 0.12% 15 ML UDC TOPICAL SCH ×6 (02:36→20:28)
[2021-05-22 02:52] LABS: Urine Appearance Clear; Urine Bilirubin Negative (Negative); Urine Blood Negative (Negative); Urine Color Yellow; Urine Glucose Negative (Negative); Urine Ketones Negative (Negative); Urine Nitrite Negative (Negative); Urine Protein Negative (Negative); Urine Specific Gravity 1.053 (1.002-1.030); Urine Urobilinogen Negative (Negative)
[2021-05-22] MEDS: Acetaminophen IV 1 GM/100ML VI 100 ML IV PRN ×3 (04:15→20:27)
[2021-05-22] MEDS ORDERED: methylPREDNISolone SOD 40 mg/ml 1 ml VIAL IV SCH (06:00)
[2021-05-22 06:14] LABS: Hematocrit 23 % (35-47); Hemoglobin 7.3 g/dL (12.0-16.0); Mean Corpuscular HGB Conc 31 g/dL (31-36); Mean Corpuscular Hemoglobin 25 pg (27-31); Mean Corpuscular Volume 81 fL (80-97); Mean Platelet Volume 7.3 fL (7.4-10.4); Platelet Count 378 10^3/uL (150-450); Red Cell Distribution Width 18 % (10-15); White Blood Count 29.5 10^3/uL (3.5-10.8)
[2021-05-22 06:34] LABS: Anion Gap 12 mmol/L (2-11); Blood Urea Nitrogen 21 mg/dL (6-24); CO2 Carbon Dioxide 25 mmol/L (22-32); Calcium 8.3 mg/dL (8.6-10.3); Chloride 100 mmol/L (101-111); Glucose 146 mg/dL (70-100); Potassium 4.2 mmol/L (3.5-5.0); Sodium 137 mmol/L (135-145); eGFR CKD-EPI 79.8 (>60)
[2021-05-22 07:26] LABS: Toxic Granulation 2+
[2021-05-22 07:38] LABS: ABS Lymphocytes 2.4 10^3/ul (1.0-4.8)
[2021-05-22 07:39] LABS: ABS Neutrophils 25.3 10^3/ul (1.5-7.7)
[2021-05-22] MEDS: Pantoprazole VIAL 40 MG VIAL IV SCH (08:45)
[2021-05-22] MEDS: Aspirin EC 81 mg TAB.EC (enteric coated) PO SCH (08:46)
[2021-05-22] MEDS: Lactated Ringers 1000 ml BAG 1,000 ML IV SCH (09:43)
[2021-05-22] MEDS ORDERED: Cefepime 2 GM in Dextrose 2 GM/50 ML BAG IV SCH (10:00)
[2021-05-22] MEDS ORDERED: Cefepime 2 GM in NS 0.9% 50 ML 50 ML IVPB SCH (10:00)
[2021-05-22] MEDS ORDERED: Anidulafungin 100 MG in NS 0.9% 100 ml BAG 100 ML IVPB ONE (10:00)
[2021-05-22] MEDS ORDERED: Vancomycin 1000 MG in NS 0.9% 250 ML IVPB SCH (10:30)
[2021-05-22] MEDS ORDERED: Azithromycin 500 mg/250 ml NS 500 MG/250 ML BAG IVPB SCH (12:00)
[2021-05-22] MEDS: methylPREDNISolone SOD 40 mg/ml 1 ml VIAL IV SCH (17:02)
[2021-05-22] MEDS: ceFAZolin VIAL 2 GM in NS 0.9% 100 ml BAG 100 ML IVPB SCH (17:40)
[2021-05-22] MEDS: Enoxaparin 40 MG/0.4 ML SYR SUBCUT SCH (20:28)
[2021-05-22] MEDS ORDERED: CEFEPIME 2 GM in Dextrose 50 mL IV SCH (21:00)
[2021-05-23] MEDS ORDERED: Magnesium Sulfate 2 gm BAG 2 GM/50 ML BAG IVPB ONE (00:46)
[2021-05-23] MEDS: ceFAZolin VIAL 2 GM in NS 0.9% 100 ml BAG 100 ML IVPB SCH ×3 (01:13→17:03)
[2021-05-23] MEDS: Chlorhexidine MOUTHWASH 0.12% 15 ML UDC TOPICAL SCH ×3 (02:26→08:21)
[2021-05-23] MEDS: methylPREDNISolone SOD 40 mg/ml 1 ml VIAL IV SCH ×2 (05:29→17:05)
[2021-05-23 06:44] LABS: Hematocrit 21 % (35-47); Hemoglobin 6.7 g/dL (12.0-16.0); Mean Corpuscular HGB Conc 32 g/dL (31-36); Mean Corpuscular Hemoglobin 25 pg (27-31); Mean Corpuscular Volume 79 fL (80-97); Mean Platelet Volume 7.1 fL (7.4-10.4); Platelet Count 321 10^3/uL (150-450); Red Blood Count 2.71 10^6 /uL (3.70-4.87); Red Cell Distribution Width 18 % (10-15); White Blood Count 45.3 10^3/uL (3.5-10.8)
[2021-05-23 06:54] LABS: Calcium 8.8 mg/dL (8.6-10.3); Potassium 3.8 mmol/L (3.5-5.0); eGFR CKD-EPI 91.8 (>60)
[2021-05-23 07:33] LABS: Basophilic Stippling 1+; Polychromasia 1+
[2021-05-23] MEDS: Aspirin EC 81 mg TAB.EC (enteric coated) PO SCH (08:19)
[2021-05-23] MEDS: Pantoprazole VIAL 40 MG VIAL IV SCH (08:19)
[2021-05-23] MEDS ORDERED: Vancomycin Trough Check NOTE FOLLOW UP ONE (10:00)
[2021-05-23] MEDS ORDERED: Acetaminophen IV 1 GM/100ML VI 100 ML ONE (10:49)
[2021-05-23] MEDS: Acetaminophen IV 1 GM/100ML VI 100 ML IVPB PRN ×2 (10:55→21:10)
[2021-05-23] MEDS ORDERED: ANIDULAFUNGIN IVPB SCH (11:00)
[2021-05-23] MEDS ORDERED: NS 0.9% IVPB SCH (11:00)
[2021-05-23] MEDS ORDERED: CMCS:Oral Rinse (Biotene)(NF) 237 ML or 473 ML ORAL RINSE BTL MT PRN (11:00)
[2021-05-23] MEDS: Lactated Ringers 1000 ml BAG 1,000 ML IV SCH (16:57)
[2021-05-23] MEDS: Enoxaparin 40 MG/0.4 ML SYR SUBCUT SCH (21:07)
[2021-05-24] MEDS: ceFAZolin VIAL 2 GM in NS 0.9% 100 ml BAG 100 ML IVPB SCH ×3 (01:29→18:00)
[2021-05-24] MEDS: Acetaminophen IV 1 GM/100ML VI 100 ML IVPB PRN (03:16)
[2021-05-24 04:33] LABS: Hematocrit 25 % (35-47); Hemoglobin 7.9 g/dL (12.0-16.0); Mean Corpuscular HGB Conc 32 g/dL (31-36); Mean Corpuscular Hemoglobin 25 pg (27-31); Mean Corpuscular Volume 77 fL (80-97); Mean Platelet Volume 7.1 fL (7.4-10.4); Platelet Count 302 10^3/uL (150-450); Red Blood Count 3.22 10^6 /uL (3.70-4.87); Red Cell Distribution Width 19 % (10-15); White Blood Count 44.8 10^3/uL (3.5-10.8)
[2021-05-24 04:52] LABS: Anion Gap 8 mmol/L (2-11); Blood Urea Nitrogen 20 mg/dL (6-24); CO2 Carbon Dioxide 28 mmol/L (22-32); Calcium 8.5 mg/dL (8.6-10.3); Chloride 101 mmol/L (101-111); Glucose 133 mg/dL (70-100); Potassium 3.6 mmol/L (3.5-5.0); Sodium 137 mmol/L (135-145); eGFR CKD-EPI 103.2 (>60)
[2021-05-24 05:10] LABS: Anisocytosis 1+; Basophilic Stippling 1+; Polychromasia 1+
[2021-05-24 05:12] LABS: Troponin I 0.13 ng/mL (<0.03)
[2021-05-24 05:13] LABS: ABS Neutrophils 33.6 10^3/ul (1.5-7.7)
[2021-05-24] MEDS: methylPREDNISolone SOD 40 mg/ml 1 ml VIAL IV SCH ×2 (06:14→18:47)
[2021-05-24] MEDS: Pantoprazole VIAL 40 MG VIAL IV SCH (08:10)
[2021-05-24] MEDS: Aspirin EC 81 mg TAB.EC (enteric coated) PO SCH (08:10)
[2021-05-24] MEDS: Acetaminophen IV 1 GM/100ML VI 100 ML IV PRN (12:53)
[2021-05-24] MEDS: methylPREDNISolone 125 mg 2 ML VIAL IV SCH (18:39)
[2021-05-24] MEDS: Enoxaparin 40 MG/0.4 ML SYR SUBCUT SCH (20:21)
[2021-05-25] MEDS: Acetaminophen IV 1 GM/100ML VI 100 ML IV PRN (00:01)
[2021-05-25] MEDS: ceFAZolin VIAL 2 GM in NS 0.9% 100 ml BAG 100 ML IVPB SCH ×3 (00:43→18:02)
[2021-05-25] MEDS: methylPREDNISolone 125 mg 2 ML VIAL IV SCH ×2 (06:07→18:14)
[2021-05-25] MEDS ORDERED: Acetaminophen IV 1 GM/100ML VI 100 ML IV PRN (07:23)
[2021-05-25] MEDS: Aspirin EC 81 mg TAB.EC (enteric coated) PO SCH (07:54)
[2021-05-25] MEDS: Pantoprazole VIAL 40 MG VIAL IV SCH (07:55)
[2021-05-25] MEDS ORDERED: Loperamide LIQ 2 MG/15 ML UDC PO PRN (09:53)
[2021-05-25 10:40] LABS: Hematocrit 28 % (35-47); Hemoglobin 8.9 g/dL (12.0-16.0); Mean Corpuscular HGB Conc 32 g/dL (31-36); Mean Corpuscular Hemoglobin 25 pg (27-31); Mean Corpuscular Volume 78 fL (80-97); Mean Platelet Volume 7.1 fL (7.4-10.4); Platelet Count 343 10^3/uL (150-450); Red Blood Count 3.64 10^6 /uL (3.70-4.87); Red Cell Distribution Width 19 % (10-15); White Blood Count 40.5 10^3/uL (3.5-10.8)
[2021-05-25] MEDS ORDERED: LOPERAMIDE 1 MG/7.5 ML PO PRN ×2 (10:49→11:06)
[2021-05-25 10:54] LABS: ALT 14 U/L (7-52); AST 19 U/L (13-39); Albumin 3.5 g/dL (3.2-5.2); Albumin/Globulin Ratio 1.2 (1-3); Alkaline Phosphatase 198 U/L (35-149); Anion Gap 12 mmol/L (2-11); Blood Urea Nitrogen 26 mg/dL (6-24); CO2 Carbon Dioxide 24 mmol/L (22-32); Calcium 8.6 mg/dL (8.6-10.3); Chloride 97 mmol/L (101-111); Globulin 2.9 g/dL (2-4); Glucose 211 mg/dL (70-100); Potassium 3.3 mmol/L (3.5-5.0); Sodium 133 mmol/L (135-145); Total Protein 6.4 g/dL (6.4-8.9); eGFR CKD-EPI 99.4 (>60)
[2021-05-25 11:08] LABS: ABS Lymphocytes 0.8 10^3/ul (1.0-4.8); ABS Monocytes 0.8 10^3/ul (0-0.8); ABS Neutrophils 38.9 10^3/ul (1.5-7.7); ABS Nucleated RBC 0.1 10^3/ul; Hypochromasia 1+; Lymphocyte % 2.1 %; Microcytosis 1+; Nucleated Red Blood Cells % 0.1
[2021-05-25] MEDS ORDERED: Potassium Chlor 20 meq TAB.ER PO ONE ×2 (11:39→17:00)
[2021-05-25 12:00] LABS: Magnesium 1.8 mg/dL (1.9-2.7)
[2021-05-25 12:05] LABS: Troponin I 0.03 ng/mL (<0.03)
[2021-05-25] MEDS: KCL 20 MEQ/100 ML IVPREMIX 20 MEQ/100 ML BAG IV SCH ×2 (12:31→15:56)
[2021-05-25] MEDS ORDERED: Magnesium Sulfate 2 gm BAG 2 GM/50 ML BAG IVPB ONE (13:03)
[2021-05-25] MEDS: TYLENOL 500 MG PO PRN ×2 (15:14→21:02)
[2021-05-25] MEDS ORDERED: KCL 20 MEQ/100 ML IVPREMIX 20 MEQ/100 ML BAG IV SCH (21:00)
[2021-05-25] MEDS: Enoxaparin 40 MG/0.4 ML SYR SUBCUT SCH (21:02)
[2021-05-26] MEDS: ceFAZolin VIAL 2 GM in NS 0.9% 100 ml BAG 100 ML IVPB SCH ×3 (01:28→16:22)
[2021-05-26] MEDS: TYLENOL 500 MG PO PRN ×4 (03:09→21:42)
[2021-05-26] MEDS: methylPREDNISolone 125 mg 2 ML VIAL IV SCH (05:53)
[2021-05-26 06:29] LABS: Hematocrit 32 % (35-47); Hemoglobin 9.9 g/dL (12.0-16.0); Mean Corpuscular HGB Conc 31 g/dL (31-36); Mean Corpuscular Hemoglobin 24 pg (27-31); Mean Corpuscular Volume 78 fL (80-97); Mean Platelet Volume 7.1 fL (7.4-10.4); Platelet Count 383 10^3/uL (150-450); Red Blood Count 4.08 10^6 /uL (3.70-4.87); Red Cell Distribution Width 18 % (10-15)
[2021-05-26 06:51] LABS: Calcium 8.7 mg/dL (8.6-10.3); Magnesium 2.2 mg/dL (1.9-2.7); Phosphorus 2.8 mg/dL (2.5-5.0); Potassium 3.9 mmol/L (3.5-5.0); eGFR CKD-EPI 100.6 (>60)
[2021-05-26 07:28] LABS: Anisocytosis 1+; Microcytosis 1+
[2021-05-26 07:29] LABS: Polychromasia 1+; Toxic Granulation 1+
[2021-05-26 07:30] LABS: ABS Lymphocytes 1.4 10^3/ul (1.0-4.8); ABS Neutrophils 48.6 10^3/ul (1.5-7.7); ABS Nucleated RBC 0.1 10^3/ul; Lymphocyte % 2.7 %; Nucleated Red Blood Cells % 0.1
[2021-05-26] MEDS: Aspirin EC 81 mg TAB.EC (enteric coated) PO SCH (09:48)
[2021-05-26] MEDS: Pantoprazole VIAL 40 MG VIAL IV SCH (09:49)
[2021-05-26] MEDS ORDERED: Loperamide LIQ 2 MG/15 ML UDC PO PRN (12:03)
[2021-05-26] MEDS: Enoxaparin 40 MG/0.4 ML SYR SUBCUT SCH (21:42)
[2021-05-27] MEDS: ceFAZolin VIAL 2 GM in NS 0.9% 100 ml BAG 100 ML IVPB SCH (01:36)
[2021-05-27 07:17] LABS: Hematocrit 29 % (35-47); Hemoglobin 9.5 g/dL (12.0-16.0); Mean Corpuscular HGB Conc 32 g/dL (31-36); Mean Corpuscular Hemoglobin 25 pg (27-31); Mean Corpuscular Volume 78 fL (80-97); Mean Platelet Volume 7.3 fL (7.4-10.4); Platelet Count 377 10^3/uL (150-450); Red Blood Count 3.76 10^6 /uL (3.70-4.87); Red Cell Distribution Width 18 % (10-15); White Blood Count 42.4 10^3/uL (3.5-10.8)
[2021-05-27 07:31] LABS: Calcium 8.7 mg/dL (8.6-10.3); Potassium 3.8 mmol/L (3.5-5.0); eGFR CKD-EPI 101.4 (>60)
[2021-05-27 08:51] LABS: Anisocytosis 1+; Hypochromasia 1+; Microcytosis 1+; Polychromasia 1+
[2021-05-27 08:52] LABS: ABS Lymphocytes 1.7 10^3/ul (1.0-4.8); ABS Monocytes 1.7 10^3/ul (0-0.8); Eosinophil % 0.1 %; Nucleated Red Blood Cells % 2.4
[2021-05-27] MEDS: Aspirin EC 81 mg TAB.EC (enteric coated) PO SCH (09:24)
[2021-05-27] MEDS: TYLENOL 500 MG PO PRN ×2 (09:25→19:45)
[2021-05-27] MEDS: methylPREDNISolone SOD 40 mg/ml 1 ml VIAL IV SCH (09:25)
[2021-05-27] MEDS: Pantoprazole VIAL 40 MG VIAL IV SCH (09:25)
[2021-05-27] MEDS ORDERED: Buffered Lidocaine 1% SYRIN 1 ml INTRADERM ONE (17:08)
[2021-05-27] MEDS: ceFAZolin 2 GM PREMIX 2 GM/50 ML BAG IVPB SCH (17:18)
[2021-05-27] MEDS: Enoxaparin 40 MG/0.4 ML SYR SUBCUT SCH (22:03)
[2021-05-28] MEDS: ceFAZolin 2 GM PREMIX 2 GM/50 ML BAG IVPB SCH ×3 (01:42→17:33)
[2021-05-28] MEDS: TYLENOL 500 MG PO PRN ×4 (01:47→23:49)
[2021-05-28 05:48] LABS: Hematocrit 29 % (35-47); Hemoglobin 9.2 g/dL (12.0-16.0); Mean Corpuscular HGB Conc 32 g/dL (31-36); Mean Corpuscular Hemoglobin 25 pg (27-31); Mean Corpuscular Volume 79 fL (80-97); Mean Platelet Volume 7.2 fL (7.4-10.4); Platelet Count 399 10^3/uL (150-450); Red Blood Count 3.62 10^6 /uL (3.70-4.87); Red Cell Distribution Width 19 % (10-15); White Blood Count 32.7 10^3/uL (3.5-10.8)
[2021-05-28 05:50] LABS: ABS Lymphocytes 1.2 10^3/ul (1.0-4.8); ABS Monocytes 0.9 10^3/ul (0-0.8); ABS Neutrophils 30.5 10^3/ul (1.5-7.7); ABS Nucleated RBC 0.3 10^3/ul; Lymphocyte % 3.8 %
[2021-05-28 06:08] LABS: Calcium 8.7 mg/dL (8.6-10.3); Magnesium 2.1 mg/dL (1.9-2.7); Potassium 4.2 mmol/L (3.5-5.0); eGFR CKD-EPI 100.2 (>60)
[2021-05-28] MEDS: methylPREDNISolone SOD 40 mg/ml 1 ml VIAL IV SCH (09:08)
[2021-05-28] MEDS: Pantoprazole VIAL 40 MG VIAL IV SCH (09:08)
[2021-05-28] MEDS: Aspirin EC 81 mg TAB.EC (enteric coated) PO SCH (09:12)
[2021-05-28] MEDS ORDERED: ZINC OXIDE 12.8% (TOPICAL) 60 GM TUBE TOPICAL PRN (17:31)
[2021-05-28] MEDS: Enoxaparin 40 MG/0.4 ML SYR SUBCUT SCH (21:35)
[2021-05-28] MEDS: ZINC OXIDE 12.8% (TOPICAL) 60 GM TUBE TOPICAL SCH (21:36)
[2021-05-29] MEDS: ceFAZolin 2 GM PREMIX 2 GM/50 ML BAG IVPB SCH ×2 (00:56→09:14)
[2021-05-29] MEDS: TYLENOL 500 MG PO PRN ×2 (06:14→12:43)
[2021-05-29 06:53] LABS: Hematocrit 27 % (35-47); Hemoglobin 8.6 g/dL (12.0-16.0); Mean Corpuscular HGB Conc 32 g/dL (31-36); Mean Corpuscular Hemoglobin 25 pg (27-31); Mean Corpuscular Volume 79 fL (80-97); Platelet Count 520 10^3/uL (150-450); Red Blood Count 3.43 10^6 /uL (3.70-4.87); Red Cell Distribution Width 19 % (10-15); White Blood Count 27.2 10^3/uL (3.5-10.8)
[2021-05-29 07:16] LABS: Calcium 8.7 mg/dL (8.6-10.3); Magnesium 2.2 mg/dL (1.9-2.7); Potassium 3.9 mmol/L (3.5-5.0); eGFR CKD-EPI 97.5 (>60)
[2021-05-29 08:28] LABS: ABS Monocytes 1.1 10^3/ul (0-0.8); ABS Nucleated RBC 0.1 10^3/ul; Anisocytosis 2+; Hypochromasia 2+; Lymphocyte % 3.8 %; Nucleated Red Blood Cells % 0.2; Polychromasia 1+
[2021-05-29 08:29] LABS: Microcytosis 1+
[2021-05-29] MEDS ORDERED: Neomycin/Polym/Bacit TOP OINT 15 GM TOPICAL SCH (09:00)
[2021-05-29] MEDS: Pantoprazole VIAL 40 MG VIAL IV SCH (09:15)
[2021-05-29] MEDS: Aspirin EC 81 mg TAB.EC (enteric coated) PO SCH (09:15)
[2021-05-29] MEDS: methylPREDNISolone SOD 40 mg/ml 1 ml VIAL IV SCH (09:15)
[2021-05-29 09:32] LABS: C Reactive Protein 37.25 mg/L (<8.01)
[2021-05-29] MEDS: ZINC OXIDE 12.8% (TOPICAL) 60 GM TUBE TOPICAL SCH (09:55)
[2021-05-29] MEDS ORDERED: Gadoteridol (CONTRAST) 279.3 MG/ML 10 ML IV ONE (14:38)
[2021-05-29 16:32] VITALS: BP 123/78
[2021-05-29] MEDS ORDERED: Lidocaine PATCH 5% PATCH TRANSDERM SCH (17:00)
[2021-05-29] MEDS ORDERED: TYLENOL 500 MG PO SCH (20:00)
[2021-05-29] MEDS ORDERED: Lidocaine Patch REMOVE NOTE PATCH OFF SCH (21:00)
== END 2021-05-29 15:35 | disposition home or self-care (01) | DRG 720 ==
LOC: ED 20:55 → SUATTDRO 23:07 → EDHOLD 23:07 → ICU 05-22 01:14 → SSU 05-25 19:50
PROVIDERS: ADMIT Internal Medicine; ATTEND Student in an Organized Health Care Education/Training Program

== ENCOUNTER 2021-10-25 21:00 | Inpatient (IN) ==
[2021-10-25] MEDS ORDERED: Propofol 10 mg/ml 100 ML BTL 100 ML ONE (21:20)
[2021-10-25 21:42] LABS: Hematocrit 24 % (35-47); Mean Corpuscular HGB Conc 29 g/dL (31-36); Mean Corpuscular Hemoglobin 21 pg (27-31); Mean Corpuscular Volume 71 fL (80-97); Mean Platelet Volume 6.7 fL (7.4-10.4); Platelet Count 852 10^3/uL (150-450); Red Blood Count 3.41 10^6 /uL (3.70-4.87); Red Cell Distribution Width 24 % (10-15); White Blood Count 51.7 10^3/uL (3.5-10.8)
[2021-10-25 21:45] LABS: Activated Partial Thrombo Time 32.4 seconds (26.0-38.0); INR 1.23 (0.86-1.15)
[2021-10-25 21:49] LABS: Albumin 3.5 g/dL (3.2-5.2); Albumin/Globulin Ratio 1.3 (1-3); C Reactive Protein 220.16 mg/L (<8.01); Globulin 2.7 g/dL (2-4); Potassium 4.4 mmol/L (3.5-5.0); Total Bilirubin 0.6 mg/dL (0.2-1.0); Total Protein 6.2 g/dL (6.4-8.9); eGFR CKD-EPI 86.1 (>60)
[2021-10-25] MEDS ORDERED: Piperacillin/Tazobac ADVAN 3.375 GM in NS 0.9% 100 ml BAG 100 ML IV ONE (22:05)
[2021-10-25] MEDS ORDERED: Propofol 10 mg/ml 100 ML BTL 100 ML IV ONE (22:42)
[2021-10-25] MEDS ORDERED: Iohexol 350 (CONTRAST) 500 ML MDV IV ONE (22:47)
[2021-10-25 22:54] LABS: Anisocytosis 2+; Basophilic Stippling 1+; Hypochromasia 2+; Microcytosis 2+; Polychromasia 1+; Stomatocytes 1+; Toxic Granulation 2+
[2021-10-25 22:55] LABS: ABS Lymphocytes 0.5 10^3/ul (1.0-4.8); ABS Monocytes 0.9 10^3/ul (0-0.8); ABS Neutrophils 50.2 10^3/ul (1.5-7.7); ABS Nucleated RBC 0.2 10^3/ul; Nucleated Red Blood Cells % 0.3
[2021-10-25] MEDS ORDERED: Vancomycin 1,000 MG VIAL IVPB SCH (23:00)
[2021-10-25] MEDS ORDERED: Vancomycin 1,000 MG - ED ONCE IVPB ONE (23:00)
[2021-10-25 23:45] LABS: PCO2 Arterial 49 mmHg (35-45); PO2 Arterial 89 mmHg (80-100)
[2021-10-26 00:56] LABS: TSH Ultra Thyroid Stim Horm 2.26 mcIU/mL (0.34-5.60)
[2021-10-26] MEDS ORDERED: Vancomycin 1,000 MG in NS 0.9% 250 ml 250 ML IVPB ONE (01:53)
[2021-10-26] MEDS ORDERED: Lactated Ringers 1000 ml BAG 1,000 ML IV ONE (01:53)
[2021-10-26] MEDS ORDERED: Piperacillin/Tazobac ADVAN 3.375 GM in NS 0.9% 100 ml BAG 100 ML IV ONE (01:53)
[2021-10-26] MEDS ORDERED: Zosyn per Pharmacy NOTE FOLLOW UP SCH (02:00)
[2021-10-26] MEDS ORDERED: Vancomycin per Pharmacy 1 EA NOTE FOLLOW UP SCH (02:00)
[2021-10-26 02:16] LABS: Magnesium 1.8 mg/dL (1.9-2.7)
[2021-10-26] MEDS ORDERED: fentaNYL 100 mcg/2 ml 50 MCG/ML VIAL IV SLOW PU PRN (02:48)
[2021-10-26] MEDS: Propofol 10 mg/ml 100 ML BTL 100 ML IV SCH ×4 (02:57→20:05)
[2021-10-26] MEDS ORDERED: ZOSYN 3.375 GM Q8H per EXTENDED INFUSION IV ONE (03:00)
[2021-10-26] MEDS: Azithromycin 500 mg/250 ml NS 500 MG/250 ML BAG IVPB SCH (03:06)
[2021-10-26] MEDS: Hydrocortisone INJ 100 MG/2ML 2 ML VIAL IV SCH ×3 (03:13→18:12)
[2021-10-26] MEDS: Chlorhexidine MOUTHWASH 0.12% 15 ML UDC TOPICAL SCH ×6 (03:13→23:21)
[2021-10-26] MEDS: Pantoprazole VIAL 40 MG VIAL IV SCH ×2 (03:13→20:05)
[2021-10-26 04:39] LABS: Urine Appearance Cloudy; Urine Bilirubin Negative (Negative); Urine Blood Negative (Negative); Urine Color Yellow; Urine Glucose Negative (Negative); Urine Ketones Negative (Negative); Urine Nitrite Negative (Negative); Urine Protein Negative (Negative); Urine Specific Gravity 1.047 (1.002-1.030); Urine Urobilinogen Negative (Negative)
[2021-10-26 05:48] LABS: ABS Basophils 0.1 10^3/ul (0-0.2); ABS Lymphocytes 0.3 10^3/ul (1.0-4.8); ABS Monocytes 0.6 10^3/ul (0-0.8); ABS Neutrophils 36.6 10^3/ul (1.5-7.7); ABS Nucleated RBC 0.1 10^3/ul; Hematocrit 22 % (35-47); Hemoglobin 6.7 g/dL (12.0-16.0); Lymphocyte % 0.7 %; Mean Corpuscular HGB Conc 30 g/dL (31-36); Mean Corpuscular Hemoglobin 22 pg (27-31); Mean Corpuscular Volume 72 fL (80-97); Mean Platelet Volume 6.7 fL (7.4-10.4); Nucleated Red Blood Cells % 0.1; Platelet Count 641 10^3/uL (150-450); Red Blood Count 3.03 10^6 /uL (3.70-4.87); Red Cell Distribution Width 23 % (10-15); White Blood Count 37.5 10^3/uL (3.5-10.8)
[2021-10-26] MEDS: Levothyroxine 100 MCG/5 ML VIAL IV SCH (05:50)
[2021-10-26] MEDS ORDERED: Heparin 5000 UNITS/ML 1 mL VIAL SUBCUT SCH (06:00)
[2021-10-26] MEDS: fentaNYL 100 mcg/2 ml 50 MCG/ML VIAL IV SLOW PU PRN ×8 (06:07→23:17)
[2021-10-26 06:18] LABS: Calcium 7.5 mg/dL (8.6-10.3); Potassium 4.6 mmol/L (3.5-5.0); eGFR CKD-EPI 100.2 (>60)
[2021-10-26] MEDS: Acetaminophen IV 1 GM/100ML 100 ML IV PRN (08:41)
[2021-10-26 08:50] LABS: Magnesium 1.8 mg/dL (1.9-2.7)
[2021-10-26] MEDS: ZOSYN 3.375 GM Q8H per EXTENDED INFUSION IV SCH ×2 (11:30→19:28)
[2021-10-26] MEDS ORDERED: Vancomycin 750 MG in NS 0.9% 250 ML IVPB SCH (12:00)
[2021-10-26 12:42] LABS: ABS Basophils 0.1 10^3/ul (0-0.2); ABS Lymphocytes 0.3 10^3/ul (1.0-4.8); ABS Monocytes 0.4 10^3/ul (0-0.8); ABS Neutrophils 33.3 10^3/ul (1.5-7.7); ABS Nucleated RBC 0.1 10^3/ul; Hematocrit 24 % (35-47); Hemoglobin 7.3 g/dL (12.0-16.0); Lymphocyte % 0.9 %; Mean Corpuscular HGB Conc 30 g/dL (31-36); Mean Corpuscular Hemoglobin 22 pg (27-31); Mean Corpuscular Volume 74 fL (80-97); Mean Platelet Volume 6.7 fL (7.4-10.4); Nucleated Red Blood Cells % 0.2; Platelet Count 605 10^3/uL (150-450); Red Cell Distribution Width 23 % (10-15)
[2021-10-26] MEDS ORDERED: Dexmedetomidine 1,000 MCG in NS 0.9% 250 ml 240 ML IV SCH (14:00)
[2021-10-26] MEDS ORDERED: fentaNYL 100 mcg/2 ml 50 MCG/ML VIAL ONE (14:48)
[2021-10-26] MEDS ORDERED: Succinylcholine 200 mg VIAL 20 mg/ml 10 ml VIAL (200 mg) ONE (14:49)
[2021-10-26] MEDS ORDERED: fentaNYL 100 mcg/2 ml 50 MCG/ML VIAL IV SLOW PU ONE (15:24)
[2021-10-26] MEDS ORDERED: Propofol 10 MG/ML 20 ML BTL IV PUSH ONE (15:25)
[2021-10-26 16:04] LABS: Body Fluid Source Broncheoalveolar lav
[2021-10-26 16:07] LABS: Body Fluid Appearance Cloudy
[2021-10-26 16:08] LABS: Body Fluid Color Yellow
[2021-10-26 18:02] LABS: Body Fluid Total Cells Counted 300
[2021-10-26 20:48] LABS: Calcium 8.1 mg/dL (8.6-10.3); eGFR CKD-EPI 105.7 (>60)
[2021-10-26 21:35] LABS: Potassium 4.3 mmol/L (3.5-5.0)
[2021-10-27] MEDS: Hydrocortisone INJ 100 MG/2ML 2 ML VIAL IV SCH (02:49)
[2021-10-27] MEDS: fentaNYL 100 mcg/2 ml 50 MCG/ML VIAL IV SLOW PU PRN ×2 (02:50→05:04)
[2021-10-27] MEDS: Propofol 10 mg/ml 100 ML BTL 100 ML IV SCH (02:50)
[2021-10-27] MEDS: Chlorhexidine MOUTHWASH 0.12% 15 ML UDC TOPICAL SCH ×6 (02:51→22:02)
[2021-10-27] MEDS: Azithromycin 500 mg/250 ml NS 500 MG/250 ML BAG IVPB SCH (03:03)
[2021-10-27] MEDS: ZOSYN 3.375 GM Q8H per EXTENDED INFUSION IV SCH ×2 (04:08→23:08)
[2021-10-27 05:23] LABS: ABS Basophils 0.3 10^3/ul (0-0.2); ABS Lymphocytes 0.3 10^3/ul (1.0-4.8); ABS Monocytes 0.6 10^3/ul (0-0.8); ABS Neutrophils 22.9 10^3/ul (1.5-7.7); ABS Nucleated RBC 0.1 10^3/ul; Hematocrit 28 % (35-47); Hemoglobin 8.6 g/dL (12.0-16.0); Lymphocyte % 1.4 %; Mean Corpuscular HGB Conc 31 g/dL (31-36); Mean Corpuscular Hemoglobin 23 pg (27-31); Mean Corpuscular Volume 75 fL (80-97); Mean Platelet Volume 6.7 fL (7.4-10.4); Nucleated Red Blood Cells % 0.2; Platelet Count 707 10^3/uL (150-450); Red Blood Count 3.73 10^6 /uL (3.70-4.87); Red Cell Distribution Width 23 % (10-15); White Blood Count 24.1 10^3/uL (3.5-10.8)
[2021-10-27 05:50] LABS: Anion Gap 13 mmol/L (2-11); Blood Urea Nitrogen 11 mg/dL (6-24); CO2 Carbon Dioxide 25 mmol/L (22-32); Calcium 8.1 mg/dL (8.6-10.3); Chloride 104 mmol/L (101-111); Glucose 110 mg/dL (70-100); Potassium 3.8 mmol/L (3.5-5.0); Sodium 142 mmol/L (135-145); eGFR CKD-EPI 107.4 (>60)
[2021-10-27] MEDS: Levothyroxine 100 MCG/5 ML VIAL IV SCH (07:06)
[2021-10-27] MEDS ORDERED: Potassium Chloride LIQUID 20 MEQ/15 ML LIQUID PO ONE (07:20)
[2021-10-27] MEDS ORDERED: Dexmedetomidine 1,000 MCG in NS 0.9% 250 ml 240 ML IV SCH (09:00)
[2021-10-27] MEDS ORDERED: Oxacillin 2 GM in NS 0.9% 100 ml BAG 100 ML IVPB SCH (09:00)
[2021-10-27] MEDS ORDERED: Furosemide 20 mg/2 ml IV VIAL IV ONE (09:36)
[2021-10-27] MEDS ORDERED: Vancomycin Trough Check NOTE FOLLOW UP ONE (11:30)
[2021-10-27] MEDS ORDERED: DARBEPOETIN ALFA ALBUMEN FREE SUBCUT ONE (12:00)
[2021-10-27] MEDS ORDERED: Linezolid 600 MG IVPREMIX(*) 600 MG/300 ML BAG IVPB SCH (12:00)
[2021-10-27 13:45] LABS: Total Iron Binding Capacity 297 mcg/dL (250-450); Transferrin 212 mg/dL (203-362)
[2021-10-27 13:53] LABS: % Iron Saturation 7 % (15-55); Iron < 20 ug/dL (50-212); Unsaturated Iron Binding 277 ug/dL
[2021-10-27] MEDS: Heparin 5000 UNITS/ML 1 mL VIAL SUBCUT SCH ×2 (14:17→22:02)
[2021-10-27] MEDS ORDERED: KCL 20 MEQ/100 ML IVPREMIX 20 MEQ/100 ML BAG IV ONE (17:18)
[2021-10-27] MEDS ORDERED: Piperacillin/Tazobac ADVAN 3.375 GM in NS 0.9% 100 ml BAG 100 ML IV ONE (17:28)
[2021-10-27] MEDS: Oxacillin 2 GM in NS 0.9% 100 ml BAG 100 ML IVPB SCH ×2 (17:40→22:25)
[2021-10-27] MEDS ORDERED: Zosyn per Pharmacy NOTE FOLLOW UP SCH (18:00)
[2021-10-27 18:33] LABS: ABS Eosinophils 0.1 10^3/ul (0-0.6); ABS Lymphocytes 0.7 10^3/ul (1.0-4.8); Eosinophil % 0.5 %; Hematocrit 28 % (35-47); Hemoglobin 8.6 g/dL (12.0-16.0); Lymphocyte % 4.2 %; Mean Corpuscular HGB Conc 31 g/dL (31-36); Mean Corpuscular Hemoglobin 22 pg (27-31); Mean Corpuscular Volume 73 fL (80-97); Mean Platelet Volume 6.8 fL (7.4-10.4); Nucleated Red Blood Cells % 0.2; Platelet Count 821 10^3/uL (150-450); Red Blood Count 3.88 10^6 /uL (3.70-4.87); Red Cell Distribution Width 24 % (10-15); White Blood Count 15.7 10^3/uL (3.5-10.8)
[2021-10-27 18:38] LABS: Activated Partial Thrombo Time 32.8 seconds (26.0-38.0); INR 1.15 (0.86-1.15)
[2021-10-27] MEDS ORDERED: Gadoteridol (CONTRAST) 279.3 MG/ML 10 ML IV ONE (19:36)
[2021-10-27] MEDS ORDERED: NS 0.9% 100 ml BAG 100 ML ONE ×2 (21:30)
[2021-10-27] MEDS: Pantoprazole VIAL 40 MG VIAL IV SCH (22:02)
[2021-10-27] MEDS: KCL 10 MEQ/50 ML IVPREMIX 10 MEQ/50 ML BAG IV SCH ×2 (22:03→23:45)
[2021-10-28] MEDS ORDERED: NS 0.9% 100 ml BAG 100 ML ONE ×2 (02:06→05:22)
[2021-10-28] MEDS: Azithromycin 500 mg/250 ml NS 500 MG/250 ML BAG IVPB SCH (02:09)
[2021-10-28] MEDS: Chlorhexidine MOUTHWASH 0.12% 15 ML UDC TOPICAL SCH ×3 (02:09→10:16)
[2021-10-28] MEDS: Acetaminophen IV 1 GM/100ML 100 ML IV PRN ×3 (02:17→21:35)
[2021-10-28] MEDS: Oxacillin 2 GM in NS 0.9% 100 ml BAG 100 ML IVPB SCH ×5 (03:26→21:27)
[2021-10-28] MEDS: Heparin 5000 UNITS/ML 1 mL VIAL SUBCUT SCH ×3 (05:55→21:32)
[2021-10-28 06:07] LABS: ABS Lymphocytes 0.8 10^3/ul (1.0-4.8); ABS Monocytes 0.9 10^3/ul (0-0.8); ABS Neutrophils 11.7 10^3/ul (1.5-7.7); Eosinophil % 0.1 %; Hematocrit 29 % (35-47); Hemoglobin 9.1 g/dL (12.0-16.0); Lymphocyte % 5.7 %; Mean Corpuscular HGB Conc 32 g/dL (31-36); Mean Corpuscular Hemoglobin 23 pg (27-31); Mean Corpuscular Volume 73 fL (80-97); Mean Platelet Volume 6.4 fL (7.4-10.4); Nucleated Red Blood Cells % 0.2; Platelet Count 903 10^3/uL (150-450); Red Blood Count 3.92 10^6 /uL (3.70-4.87); Red Cell Distribution Width 24 % (10-15); White Blood Count 13.5 10^3/uL (3.5-10.8)
[2021-10-28] MEDS: ZOSYN 3.375 GM Q8H per EXTENDED INFUSION IV SCH ×3 (06:07→22:11)
[2021-10-28 06:22] LABS: Calcium 8.3 mg/dL (8.6-10.3); Potassium 3.1 mmol/L (3.5-5.0)
[2021-10-28] MEDS ORDERED: Dextrose 50% Syringe 50 ml 25 GM/50 ML SYRINGE IV PUSH PRN (07:28)
[2021-10-28] MEDS: KCL 20 MEQ/100 ML IVPREMIX 20 MEQ/100 ML BAG IV SCH ×3 (08:25→17:12)
[2021-10-28] MEDS ORDERED: Midazolam 5 mg/5 ml VIAL 1 mg/ml 5 ml VIAL (5 mg) ONE (09:42)
[2021-10-28] MEDS ORDERED: Flumazenil 0.5 mg/5 ml 0.1 MG/ML 5 ml VIAL ONE (09:42)
[2021-10-28] MEDS ORDERED: Naloxone 0.4 mg VIAL 0.4 mg/ml 1 ml VIAL ONE (09:42)
[2021-10-28] MEDS ORDERED: fentaNYL 100 mcg/2 ml 50 MCG/ML VIAL ONE ×2 (09:42→10:43)
[2021-10-28] MEDS: D5LR 1000 ml BAG 1,000 ML IV SCH ×2 (10:17→22:46)
[2021-10-28] MEDS: Magic MouthWash2-BEN/MAAL/LIDO/NYST 240 ML BTL (alt formulation) SWISH SPIT SCH ×3 (14:38→21:40)
[2021-10-28] MEDS ORDERED: KCL 20 MEQ/100 ML IVPREMIX 20 MEQ/100 ML BAG ONE (15:59)
[2021-10-28] MEDS ORDERED: methylPREDNISolone SOD SUCC 40 mg/ml 1 ml VIAL IV ONE (15:59)
[2021-10-28] MEDS: Pantoprazole VIAL 40 MG VIAL IV SCH (21:30)
[2021-10-29] MEDS: Azithromycin 500 mg/250 ml NS 500 MG/250 ML BAG IVPB SCH (01:49)
[2021-10-29] MEDS: Oxacillin 2 GM in NS 0.9% 100 ml BAG 100 ML IVPB SCH ×4 (03:45→22:01)
[2021-10-29 05:15] LABS: ABS Lymphocytes 0.3 10^3/ul (1.0-4.8); ABS Monocytes 0.2 10^3/ul (0-0.8); ABS Neutrophils 11.4 10^3/ul (1.5-7.7); Hematocrit 31 % (35-47); Hemoglobin 9.4 g/dL (12.0-16.0); Lymphocyte % 2.5 %; Mean Corpuscular HGB Conc 30 g/dL (31-36); Mean Corpuscular Hemoglobin 23 pg (27-31); Mean Corpuscular Volume 75 fL (80-97); Mean Platelet Volume 6.6 fL (7.4-10.4); Nucleated Red Blood Cells % 0.1; Platelet Count 891 10^3/uL (150-450); Red Blood Count 4.14 10^6 /uL (3.70-4.87); Red Cell Distribution Width 25 % (10-15); White Blood Count 11.9 10^3/uL (3.5-10.8)
[2021-10-29 05:25] LABS: Calcium 8.1 mg/dL (8.6-10.3); Magnesium 1.9 mg/dL (1.9-2.7); Potassium 4.1 mmol/L (3.5-5.0); eGFR CKD-EPI 102.7 (>60)
[2021-10-29] MEDS: Heparin 5000 UNITS/ML 1 mL VIAL SUBCUT SCH ×3 (05:48→22:01)
[2021-10-29] MEDS: Levothyroxine 100 MCG/5 ML VIAL IV SCH (05:48)
[2021-10-29] MEDS: ZOSYN 3.375 GM Q8H per EXTENDED INFUSION IV SCH (05:49)
[2021-10-29] MEDS ORDERED: Magnesium Sulfate IV 1GM/100ML 1 GM/100 ML BAG IV ONE (07:13)
[2021-10-29] MEDS: Acetaminophen IV 1 GM/100ML 100 ML IV PRN ×2 (09:11→19:40)
[2021-10-29] MEDS: Magic MouthWash2-BEN/MAAL/LIDO/NYST 240 ML BTL (alt formulation) SWISH SPIT SCH ×4 (09:12→22:02)
[2021-10-29] MEDS: D5LR 1000 ml BAG 1,000 ML IV SCH (12:19)
[2021-10-29] MEDS: methylPREDNISolone SOD SUCC 40 mg/ml 1 ml VIAL IV SCH (14:37)
[2021-10-29] MEDS ORDERED: Iron Sucrose 200 MG in NS 0.9% 100 ml BAG 100 ML IVPB ONE (15:26)
[2021-10-29] MEDS: TPN 24 HR with D10W 1000 ml BAG 1,000 ML, Amino Acid Infusion 10% 850 ML, Sterile Water... IV SCH ×2 (18:29→22:35)
[2021-10-29] MEDS ORDERED: fentaNYL 100 mcg/2 ml 50 MCG/ML VIAL IV SLOW PU PRN ×2 (20:05→20:06)
[2021-10-29] MEDS: Pantoprazole VIAL 40 MG VIAL IV SCH (22:01)
[2021-10-30] MEDS: Oxacillin 2 GM in NS 0.9% 100 ml BAG 100 ML IVPB SCH ×4 (04:03→21:43)
[2021-10-30] MEDS: Acetaminophen IV 1 GM/100ML 100 ML IV PRN ×3 (05:35→21:17)
[2021-10-30] MEDS: Levothyroxine 100 MCG/5 ML VIAL IV SCH (05:35)
[2021-10-30] MEDS: Heparin 5000 UNITS/ML 1 mL VIAL SUBCUT SCH ×3 (05:36→21:17)
[2021-10-30 06:06] LABS: ABS Lymphocytes 0.5 10^3/ul (1.0-4.8); ABS Monocytes 0.7 10^3/ul (0-0.8); ABS Neutrophils 8.9 10^3/ul (1.5-7.7); ABS Nucleated RBC 0.1 10^3/ul; Hematocrit 32 % (35-47); Mean Corpuscular HGB Conc 32 g/dL (31-36); Mean Corpuscular Hemoglobin 24 pg (27-31); Mean Corpuscular Volume 74 fL (80-97); Mean Platelet Volume 6.2 fL (7.4-10.4); Nucleated Red Blood Cells % 0.7; Platelet Count 941 10^3/uL (150-450); Red Blood Count 4.26 10^6 /uL (3.70-4.87); Red Cell Distribution Width 25 % (10-15); White Blood Count 10.2 10^3/uL (3.5-10.8)
[2021-10-30 06:12] LABS: Albumin 3.2 g/dL (3.2-5.2); Albumin/Globulin Ratio 1.1 (1-3); Globulin 2.8 g/dL (2-4); Magnesium 2.2 mg/dL (1.9-2.7); Phosphorus 3.1 mg/dL (2.5-5.0); Potassium 4.4 mmol/L (3.5-5.0); Total Bilirubin 0.5 mg/dL (0.2-1.0); eGFR CKD-EPI 103.2 (>60)
[2021-10-30] MEDS: Magic MouthWash2-BEN/MAAL/LIDO/NYST 240 ML BTL (alt formulation) SWISH SPIT SCH ×4 (08:58→20:04)
[2021-10-30] MEDS: methylPREDNISolone SOD SUCC 40 mg/ml 1 ml VIAL IV SCH (08:59)
[2021-10-30] MEDS: TPN CENTRAL STANDARD BASE A IV SCH (17:12)
[2021-10-30] MEDS: Pantoprazole VIAL 40 MG VIAL IV SCH (21:17)
[2021-10-31] MEDS: Levothyroxine 100 MCG/5 ML VIAL IV SCH (05:08)
[2021-10-31] MEDS: Heparin 5000 UNITS/ML 1 mL VIAL SUBCUT SCH ×3 (05:08→22:19)
[2021-10-31] MEDS: Oxacillin 2 GM in NS 0.9% 100 ml BAG 100 ML IVPB SCH ×4 (05:09→22:13)
[2021-10-31 05:42] LABS: Hematocrit 33 % (35-47); Hemoglobin 9.9 g/dL (12.0-16.0); Mean Corpuscular HGB Conc 31 g/dL (31-36); Mean Corpuscular Hemoglobin 23 pg (27-31); Mean Corpuscular Volume 76 fL (80-97); Mean Platelet Volume 6.4 fL (7.4-10.4); Platelet Count 916 10^3/uL (150-450); Red Blood Count 4.28 10^6 /uL (3.70-4.87); Red Cell Distribution Width 25 % (10-15); White Blood Count 10.5 10^3/uL (3.5-10.8)
[2021-10-31] MEDS: Acetaminophen IV 1 GM/100ML 100 ML IV PRN (05:57)
[2021-10-31 06:02] LABS: ABS Eosinophils 0.1 10^3/ul (0-0.6); ABS Lymphocytes 0.8 10^3/ul (1.0-4.8); ABS Monocytes 0.7 10^3/ul (0-0.8); ABS Neutrophils 8.8 10^3/ul (1.5-7.7); ABS Nucleated RBC 0.1 10^3/ul; Eosinophil % 1.2 %; Lymphocyte % 7.7 %; Nucleated Red Blood Cells % 1.4
[2021-10-31 06:16] LABS: Albumin 3.4 g/dL (3.2-5.2); Albumin/Globulin Ratio 1.2 (1-3); Calcium 9.6 mg/dL (8.6-10.3); Globulin 2.9 g/dL (2-4); Magnesium 2.2 mg/dL (1.9-2.7); Phosphorus 2.9 mg/dL (2.5-5.0); Potassium 4.2 mmol/L (3.5-5.0); Total Bilirubin 0.2 mg/dL (0.2-1.0); Total Protein 6.3 g/dL (6.4-8.9); eGFR CKD-EPI 104.2 (>60)
[2021-10-31] MEDS: Magic MouthWash2-BEN/MAAL/LIDO/NYST 240 ML BTL (alt formulation) SWISH SPIT SCH ×4 (10:01→21:45)
[2021-10-31] MEDS: methylPREDNISolone SOD SUCC 40 mg/ml 1 ml VIAL IV SCH (10:31)
[2021-10-31 10:42] LABS: HDL Cholesterol 52.5 mg/dL
[2021-10-31] MEDS: fentaNYL 100 mcg/2 ml 50 MCG/ML VIAL IV SLOW PU PRN ×3 (10:46→22:13)
[2021-10-31] MEDS: Iron Sucrose 200 MG in NS 0.9% 100 ml BAG 100 ML IVPB SCH (15:07)
[2021-10-31] MEDS: TPN CENTRAL STANDARD BASE A IV SCH (17:56)
[2021-10-31] MEDS: Pantoprazole VIAL 40 MG VIAL IV SCH (22:12)
[2021-11-01] MEDS: Oxacillin 2 GM in NS 0.9% 100 ml BAG 100 ML IVPB SCH ×4 (04:00→22:03)
[2021-11-01] MEDS: Levothyroxine 100 MCG/5 ML VIAL IV SCH (04:41)
[2021-11-01] MEDS: Heparin 5000 UNITS/ML 1 mL VIAL SUBCUT SCH ×3 (04:54→22:09)
[2021-11-01 05:05] LABS: Hematocrit 33 % (35-47); Hemoglobin 10.1 g/dL (12.0-16.0); Mean Corpuscular HGB Conc 30 g/dL (31-36); Mean Corpuscular Hemoglobin 23 pg (27-31); Mean Corpuscular Volume 77 fL (80-97); Mean Platelet Volume 6.3 fL (7.4-10.4); Platelet Count 857 10^3/uL (150-450); Red Blood Count 4.32 10^6 /uL (3.70-4.87); Red Cell Distribution Width 25 % (10-15)
[2021-11-01 05:29] LABS: ABS Eosinophils 0.2 10^3/ul (0-0.6); ABS Lymphocytes 0.8 10^3/ul (1.0-4.8); ABS Monocytes 0.8 10^3/ul (0-0.8); ABS Neutrophils 9.2 10^3/ul (1.5-7.7); ABS Nucleated RBC 0.1 10^3/ul; Eosinophil % 1.4 %; Lymphocyte % 7.3 %; Nucleated Red Blood Cells % 1.3
[2021-11-01 05:56] LABS: Albumin 3.4 g/dL (3.2-5.2); Albumin/Globulin Ratio 1.2 (1-3); Calcium 9.4 mg/dL (8.6-10.3); Globulin 2.8 g/dL (2-4); Magnesium 2.1 mg/dL (1.9-2.7); Phosphorus 2.9 mg/dL (2.5-5.0); Total Bilirubin 0.6 mg/dL (0.2-1.0); Total Protein 6.2 g/dL (6.4-8.9); eGFR CKD-EPI 106.2 (>60)
[2021-11-01] MEDS: fentaNYL 100 mcg/2 ml 50 MCG/ML VIAL IV SLOW PU PRN ×4 (07:26→22:15)
[2021-11-01] MEDS: methylPREDNISolone SOD SUCC 40 mg/ml 1 ml VIAL IV SCH (07:26)
[2021-11-01] MEDS: Iron Sucrose 200 MG in NS 0.9% 100 ml BAG 100 ML IVPB SCH (07:26)
[2021-11-01] MEDS: Magic MouthWash2-BEN/MAAL/LIDO/NYST 240 ML BTL (alt formulation) SWISH SPIT SCH ×4 (07:27→19:00)
[2021-11-01] MEDS ORDERED: fentaNYL PATCH 25 MCG/HR 1 PATCH TRANSDERM SCH (09:00)
[2021-11-01] MEDS: TPN CENTRAL STANDARD BASE A IV SCH (17:31)
[2021-11-01] MEDS ORDERED: fentaNYL Patch Check Q Shift NOTE SCH (19:00)
[2021-11-01] MEDS: Pantoprazole VIAL 40 MG VIAL IV SCH (22:03)
[2021-11-02] MEDS: fentaNYL 100 mcg/2 ml 50 MCG/ML VIAL IV SLOW PU PRN ×2 (04:48→08:27)
[2021-11-02 05:06] LABS: Hematocrit 34 % (35-47); Hemoglobin 10.3 g/dL (12.0-16.0); Mean Corpuscular HGB Conc 30 g/dL (31-36); Mean Corpuscular Hemoglobin 24 pg (27-31); Mean Corpuscular Volume 79 fL (80-97); Mean Platelet Volume 6.4 fL (7.4-10.4); Platelet Count 778 10^3/uL (150-450); Red Blood Count 4.33 10^6 /uL (3.70-4.87); Red Cell Distribution Width 25 % (10-15)
[2021-11-02] MEDS: Levothyroxine 100 MCG/5 ML VIAL IV SCH (05:09)
[2021-11-02] MEDS: Oxacillin 2 GM in NS 0.9% 100 ml BAG 100 ML IVPB SCH ×4 (05:09→21:36)
[2021-11-02] MEDS: Heparin 5000 UNITS/ML 1 mL VIAL SUBCUT SCH ×2 (05:10→12:25)
[2021-11-02 05:17] LABS: ABS Basophils 0.1 10^3/ul (0-0.2); ABS Eosinophils 0.2 10^3/ul (0-0.6); ABS Lymphocytes 0.8 10^3/ul (1.0-4.8); ABS Monocytes 0.9 10^3/ul (0-0.8); ABS Nucleated RBC 0.1 10^3/ul; Lymphocyte % 6.6 %; Nucleated Red Blood Cells % 0.9
[2021-11-02 05:21] LABS: INR 1.09 (0.86-1.15)
[2021-11-02 05:37] LABS: Albumin 3.6 g/dL (3.2-5.2); Albumin/Globulin Ratio 1.3 (1-3); Calcium 9.7 mg/dL (8.6-10.3); Globulin 2.8 g/dL (2-4); Phosphorus 3.1 mg/dL (2.5-5.0); Potassium 4.3 mmol/L (3.5-5.0); Total Bilirubin 0.6 mg/dL (0.2-1.0); Total Protein 6.4 g/dL (6.4-8.9); eGFR CKD-EPI 106.2 (>60)
[2021-11-02] MEDS: Magic MouthWash2-BEN/MAAL/LIDO/NYST 240 ML BTL (alt formulation) SWISH SPIT SCH ×4 (08:17→21:27)
[2021-11-02] MEDS: Iron Sucrose 200 MG in NS 0.9% 100 ml BAG 100 ML IVPB SCH (08:18)
[2021-11-02] MEDS: methylPREDNISolone SOD SUCC 40 mg/ml 1 ml VIAL IV SCH (08:18)
[2021-11-02 08:26] LABS: Activated Partial Thrombo Time 43.5 seconds (26.0-38.0)
[2021-11-02] MEDS ORDERED: fentaNYL 100 mcg/2 ml 50 MCG/ML VIAL ONE (09:18)
[2021-11-02] MEDS ORDERED: Lidocaine 2% JELLY 6 ML Topical TOPICAL ONE (09:18)
[2021-11-02] MEDS ORDERED: Midazolam 2 mg/2 ml VIAL 1 mg/ml 2 ml VIAL (2 mg) ONE ×2 (09:18→10:37)
[2021-11-02] MEDS ORDERED: Bupivacaine 0.25% SDV PF 10 ML VIAL INJ ONE ×2 (09:19→09:46)
[2021-11-02] MEDS: Acetaminophen IV 1 GM/100ML 100 ML IV PRN (12:30)
[2021-11-02] MEDS ORDERED: fentaNYL PATCH 12 MCG/HR 1 PATCH TRANSDERM SCH (14:00)
[2021-11-02] MEDS: Enoxaparin 40 MG/0.4 ML SYR SUBCUT SCH (14:27)
[2021-11-02] MEDS: TPN CENTRAL STANDARD BASE A IV SCH (17:08)
[2021-11-02] MEDS: fentaNYL Patch Check Q Shift NOTE FOLLOW UP SCH (19:12)
[2021-11-02] MEDS: Pantoprazole VIAL 40 MG VIAL IV SCH (21:27)
[2021-11-03] MEDS: Acetaminophen IV 1 GM/100ML 100 ML IV PRN ×2 (00:57→10:14)
[2021-11-03] MEDS: Oxacillin 2 GM in NS 0.9% 100 ml BAG 100 ML IVPB SCH ×4 (04:07→22:24)
[2021-11-03] MEDS: Levothyroxine 100 MCG/5 ML VIAL IV SCH (05:59)
[2021-11-03 06:25] LABS: Hematocrit 34 % (35-47); Hemoglobin 10.4 g/dL (12.0-16.0); Mean Corpuscular HGB Conc 30 g/dL (31-36); Mean Corpuscular Hemoglobin 24 pg (27-31); Mean Corpuscular Volume 80 fL (80-97); Mean Platelet Volume 6.4 fL (7.4-10.4); Platelet Count 675 10^3/uL (150-450); Red Blood Count 4.31 10^6 /uL (3.70-4.87); Red Cell Distribution Width 26 % (10-15); White Blood Count 10.6 10^3/uL (3.5-10.8)
[2021-11-03 07:00] LABS: Albumin 3.5 g/dL (3.2-5.2); Albumin/Globulin Ratio 1.3 (1-3); Calcium 9.6 mg/dL (8.6-10.3); Globulin 2.8 g/dL (2-4); Phosphorus 3.2 mg/dL (2.5-5.0); Potassium 4.4 mmol/L (3.5-5.0); Total Bilirubin 0.8 mg/dL (0.2-1.0); Total Protein 6.3 g/dL (6.4-8.9); eGFR CKD-EPI 106.2 (>60)
[2021-11-03] MEDS: fentaNYL Patch Check Q Shift NOTE FOLLOW UP SCH ×2 (07:09→19:12)
[2021-11-03] MEDS: Iron Sucrose 200 MG in NS 0.9% 100 ml BAG 100 ML IVPB SCH (08:46)
[2021-11-03] MEDS: methylPREDNISolone SOD SUCC 40 mg/ml 1 ml VIAL IV SCH (08:46)
[2021-11-03] MEDS: Magic MouthWash2-BEN/MAAL/LIDO/NYST 240 ML BTL (alt formulation) SWISH SPIT SCH ×4 (08:47→20:54)
[2021-11-03 10:17] LABS: ABS Basophils 0.1 10^3/ul (0-0.2); ABS Eosinophils 0.3 10^3/ul (0-0.6); ABS Lymphocytes 0.6 10^3/ul (1.0-4.8); ABS Monocytes 0.9 10^3/ul (0-0.8); ABS Neutrophils 8.8 10^3/ul (1.5-7.7); Anisocytosis 2+; Eosinophil % 2.4 %; Lymphocyte % 5.8 %; Nucleated Red Blood Cells % 0.4; Polychromasia 1+
[2021-11-03] MEDS ORDERED: DARBEPOETIN ALFA ALBUMEN FREE SUBCUT ONE (10:22)
[2021-11-03] MEDS: Enoxaparin 40 MG/0.4 ML SYR SUBCUT SCH (13:28)
[2021-11-04] MEDS: Oxacillin 2 GM in NS 0.9% 100 ml BAG 100 ML IVPB SCH ×2 (04:05→10:32)
[2021-11-04 06:07] LABS: Hematocrit 36 % (35-47); Hemoglobin 11.1 g/dL (12.0-16.0); Mean Corpuscular HGB Conc 31 g/dL (31-36); Mean Corpuscular Hemoglobin 25 pg (27-31); Mean Corpuscular Volume 80 fL (80-97); Mean Platelet Volume 6.3 fL (7.4-10.4); Platelet Count 593 10^3/uL (150-450); Red Blood Count 4.44 10^6 /uL (3.70-4.87); Red Cell Distribution Width 33 % (10-15); White Blood Count 12.5 10^3/uL (3.5-10.8)
[2021-11-04] MEDS: Levothyroxine 100 MCG/5 ML VIAL IV SCH (06:08)
[2021-11-04 06:50] LABS: Calcium 10.2 mg/dL (8.6-10.3); Potassium 3.9 mmol/L (3.5-5.0); eGFR CKD-EPI 104.2 (>60)
[2021-11-04] MEDS: fentaNYL Patch Check Q Shift NOTE FOLLOW UP SCH (06:59)
[2021-11-04] MEDS ORDERED: Ondansetron 4 mg VIAL 2 MG/ML 2 ml VIAL IV PRN (07:13)
[2021-11-04] MEDS: Iron Sucrose 200 MG in NS 0.9% 100 ml BAG 100 ML IVPB SCH (07:30)
[2021-11-04] MEDS: Magic MouthWash2-BEN/MAAL/LIDO/NYST 240 ML BTL (alt formulation) SWISH SPIT SCH ×2 (07:31→13:00)
[2021-11-04 07:52] LABS: Anisocytosis 2+; Basophilic Stippling 1+; Hypochromasia 1+; Microcytosis 1+; Polychromasia 2+
[2021-11-04 07:54] LABS: Spherocytes 1+; Target Cells 1+
[2021-11-04 07:55] LABS: ABS Basophils 0.1 10^3/ul (0-0.2); ABS Eosinophils 0.2 10^3/ul (0-0.6); ABS Lymphocytes 0.6 10^3/ul (1.0-4.8); ABS Monocytes 0.8 10^3/ul (0-0.8); ABS Neutrophils 10.9 10^3/ul (1.5-7.7); Eosinophil % 1.6 %; Lymphocyte % 4.5 %; Nucleated Red Blood Cells % 0.2
[2021-11-04 11:14] VITALS: BP 132/72
[2021-11-04] MEDS ORDERED: Lansoprazole SUSP ORALSYR 3 MG/ML G TUBE SCH (21:00)
== END 2021-11-04 14:35 | disposition home health service (06) | DRG 720 ==
LOC: ED 21:00 → EDHOLD 10-26 01:48 → SUATTDRO 10-26 01:48 → ICU 10-26 02:42 → MED 10-28 18:31
PROVIDERS: ADMIT Internal Medicine; ATTEND Internal Medicine

== ENCOUNTER 2022-04-09 11:05 | Inpatient (IN) ==
[2022-04-09] MEDS ORDERED: Lactated Ringers 1000 ml BAG 1,000 ML IV ONE (11:29)
[2022-04-09 12:12] LABS: Activated Partial Thrombo Time 31.8 seconds (26.0-38.0); INR 1.09 (0.89-1.11)
[2022-04-09 12:22] LABS: Albumin 3.1 g/dL (3.2-5.2); Calcium 9.9 mg/dL (8.6-10.3); Hematocrit 31 % (35-47); Hemoglobin 9.7 g/dL (12.0-16.0); Mean Corpuscular HGB Conc 31 g/dL (31-36); Mean Corpuscular Hemoglobin 26 pg (27-31); Mean Corpuscular Volume 84 fL (80-97); Mean Platelet Volume 7.9 fL (7.4-10.4); Platelet Count 583 10^3/uL (150-450); Red Blood Count 3.72 10^6 /uL (3.70-4.87); Red Cell Distribution Width 22 % (10-15); Total Bilirubin 0.5 mg/dL (0.2-1.0)
[2022-04-09 12:28] LABS: Albumin/Globulin Ratio 1.4 (1-3); C Reactive Protein 205.96 mg/L (<8.01); Globulin 2.2 g/dL (2-4); Potassium 5.1 mmol/L (3.5-5.0); Total Protein 5.3 g/dL (6.4-8.9); eGFR CKD-EPI 102.6 (>60)
[2022-04-09 13:08] LABS: High Sensitivity Troponin 1 Hr 11 pg/mL (<15)
[2022-04-09] MEDS ORDERED: Azithromycin 500 mg/250 ml NS 500 MG/250 ML BAG IVPB ONE (13:12)
[2022-04-09] MEDS ORDERED: cefTRIAXone 1 gm/50 mL D5W 1 GM/50 ML BAG IV ONE (13:12)
[2022-04-09 13:22] LABS: Basophilic Stippling 1+; Polychromasia 2+
[2022-04-09 13:23] LABS: ABS Basophils 0.2 10^3/ul (0-0.2); ABS Lymphocytes 0.4 10^3/ul (1.0-4.8); ABS Monocytes 1.6 10^3/ul (0-0.8); ABS Neutrophils 27.8 10^3/ul (1.5-7.7); ABS Nucleated RBC 1.1 10^3/ul; Lymphocyte % 1.4 %; Nucleated Red Blood Cells % 3.6
[2022-04-09] MEDS ORDERED: Morphine 2 MG/ML SYRINGE IV PRN (14:44)
[2022-04-09] MEDS ORDERED: Zosyn per Pharmacy NOTE FOLLOW UP SCH (15:00)
[2022-04-09] MEDS: Acetaminophen IV 1 GM/100ML 1,000 MG/100 ML BAG IV SCH ×2 (15:40→21:14)
[2022-04-09] MEDS ORDERED: Piperacillin/Tazobac ADVAN 3.375 GM in NS 0.9% 100 ml BAG 100 ML IV ONE (16:32)
[2022-04-09] MEDS: Enoxaparin 40 MG/0.4 ML SYR SUBCUT SCH (18:29)
[2022-04-09] MEDS: Lactated Ringers 1000 ml BAG 1,000 ML IV SCH (20:12)
[2022-04-09] MEDS: Ondansetron 4 mg VIAL 2 MG/ML 2 ml VIAL IV PRN (21:19)
[2022-04-09] MEDS ORDERED: Iohexol 350 (CONTRAST) 500 ML MDV IV ONE (22:46)
[2022-04-09] MEDS: ZOSYN 3.375 GM Q8H per EXTENDED INFUSION IV SCH (23:56)
[2022-04-10] MEDS: Acetaminophen IV 1 GM/100ML 1,000 MG/100 ML BAG IV SCH ×3 (04:29→21:57)
[2022-04-10] MEDS: Levothyroxine 100 MCG/5 ML VIAL IV SCH (05:59)
[2022-04-10] MEDS ORDERED: D5W IV SCH (06:00)
[2022-04-10] MEDS ORDERED: LEVOTHYROXINE IV SCH (06:00)
[2022-04-10] MEDS: Ondansetron 4 mg VIAL 2 MG/ML 2 ml VIAL IV PRN ×2 (06:08→20:52)
[2022-04-10 06:34] LABS: Hematocrit 24 % (35-47); Hemoglobin 7.1 g/dL (12.0-16.0); Mean Corpuscular HGB Conc 30 g/dL (31-36); Mean Corpuscular Hemoglobin 25 pg (27-31); Mean Corpuscular Volume 86 fL (80-97); Mean Platelet Volume 7.7 fL (7.4-10.4); Platelet Count 462 10^3/uL (150-450); Red Cell Distribution Width 22 % (10-15); White Blood Count 38.5 10^3/uL (3.5-10.8)
[2022-04-10 06:41] LABS: ABS Lymphocytes 0.5 10^3/ul (1.0-4.8); ABS Monocytes 1.6 10^3/ul (0-0.8); ABS Neutrophils 36.4 10^3/ul (1.5-7.7); ABS Nucleated RBC 0.4 10^3/ul; Lymphocyte % 1.3 %; Nucleated Red Blood Cells % 1.1
[2022-04-10 07:26] LABS: Calcium 8.9 mg/dL (8.6-10.3); Magnesium 1.7 mg/dL (1.9-2.7); Potassium 4.5 mmol/L (3.5-5.0); eGFR CKD-EPI 108.5 (>60)
[2022-04-10] MEDS: ZOSYN 3.375 GM Q8H per EXTENDED INFUSION IV SCH ×4 (08:41→23:49)
[2022-04-10] MEDS: Zinc Oxide 40% (TOPICAL) TUBE TOPICAL SCH ×4 (11:00→21:57)
[2022-04-10] MEDS: Lactated Ringers 1000 ml BAG 1,000 ML IV SCH (14:15)
[2022-04-10] MEDS: Enoxaparin 40 MG/0.4 ML SYR SUBCUT SCH (14:52)
[2022-04-10] MEDS: guaiFENesin 100 mg/5 ml LIQ unit dose cup PO SCH ×2 (17:18→23:49)
[2022-04-11] MEDS: Zinc Oxide 40% (TOPICAL) TUBE TOPICAL SCH ×8 (02:22→22:25)
[2022-04-11] MEDS: Ondansetron 4 mg VIAL 2 MG/ML 2 ml VIAL IV PRN ×3 (02:32→20:40)
[2022-04-11] MEDS: Acetaminophen IV 1 GM/100ML 1,000 MG/100 ML BAG IV SCH ×3 (05:05→21:55)
[2022-04-11] MEDS: guaiFENesin 100 mg/5 ml LIQ unit dose cup PO SCH ×3 (05:06→19:00)
[2022-04-11] MEDS: Levothyroxine 100 MCG/5 ML VIAL IV SCH (05:38)
[2022-04-11 06:51] LABS: Hematocrit 29 % (35-47); Hemoglobin 8.8 g/dL (12.0-16.0); Mean Corpuscular HGB Conc 30 g/dL (31-36); Mean Corpuscular Hemoglobin 26 pg (27-31); Mean Corpuscular Volume 86 fL (80-97); Mean Platelet Volume 7.3 fL (7.4-10.4); Platelet Count 485 10^3/uL (150-450); Red Blood Count 3.36 10^6 /uL (3.70-4.87); Red Cell Distribution Width 21 % (10-15); White Blood Count 38.4 10^3/uL (3.5-10.8)
[2022-04-11 07:16] LABS: Calcium 9.5 mg/dL (8.6-10.3); Magnesium 1.9 mg/dL (1.9-2.7); Potassium 4.6 mmol/L (3.5-5.0)
[2022-04-11] MEDS: Lactated Ringers 1000 ml BAG 1,000 ML IV SCH (08:34)
[2022-04-11] MEDS: ZOSYN 3.375 GM Q8H per EXTENDED INFUSION IV SCH ×3 (08:36→23:20)
[2022-04-11 09:54] LABS: Anisocytosis 2+; Microcytosis 1+
[2022-04-11 09:55] LABS: ABS Basophils 0.1 10^3/ul (0-0.2); ABS Lymphocytes 0.4 10^3/ul (1.0-4.8); ABS Monocytes 1.2 10^3/ul (0-0.8); ABS Neutrophils 36.8 10^3/ul (1.5-7.7); ABS Nucleated RBC 0.6 10^3/ul; Basophilic Stippling 1+; Eosinophil % 0.1 %; Nucleated Red Blood Cells % 1.4; Polychromasia 1+
[2022-04-11] MEDS ORDERED: Acetylcysteine INH SOL (RT) 200 MG/ML 4 ML VIAL INH PRN (11:12)
[2022-04-11] MEDS: Enoxaparin 40 MG/0.4 ML SYR SUBCUT SCH (15:27)
[2022-04-12] MEDS: guaiFENesin 100 mg/5 ml LIQ unit dose cup PO SCH ×5 (00:16→22:50)
[2022-04-12] MEDS: Lactated Ringers 1000 ml BAG 1,000 ML IV SCH ×2 (00:16→14:53)
[2022-04-12] MEDS: Zinc Oxide 40% (TOPICAL) TUBE TOPICAL SCH ×8 (01:26→22:58)
[2022-04-12] MEDS: Acetaminophen IV 1 GM/100ML 1,000 MG/100 ML BAG IV SCH ×3 (04:54→21:05)
[2022-04-12] MEDS: Levothyroxine 100 MCG/5 ML VIAL IV SCH (05:44)
[2022-04-12 06:53] LABS: Calcium 9.3 mg/dL (8.6-10.3); Potassium 4.1 mmol/L (3.5-5.0); eGFR CKD-EPI 106.7 (>60)
[2022-04-12 07:20] LABS: Hematocrit 28 % (35-47); Hemoglobin 8.5 g/dL (12.0-16.0); Mean Corpuscular HGB Conc 30 g/dL (31-36); Mean Corpuscular Hemoglobin 26 pg (27-31); Mean Corpuscular Volume 86 fL (80-97); Mean Platelet Volume 7.5 fL (7.4-10.4); Platelet Count 466 10^3/uL (150-450); Red Blood Count 3.28 10^6 /uL (3.70-4.87); Red Cell Distribution Width 21 % (10-15); White Blood Count 42.2 10^3/uL (3.5-10.8)
[2022-04-12 08:30] LABS: RBC Morphology Normal (Normal); Toxic Granulation 1+
[2022-04-12 08:31] LABS: ABS Basophils 0.1 10^3/ul (0-0.2); ABS Lymphocytes 0.3 10^3/ul (1.0-4.8); ABS Monocytes 1.1 10^3/ul (0-0.8); ABS Neutrophils 40.6 10^3/ul (1.5-7.7); ABS Nucleated RBC 0.1 10^3/ul; Eosinophil % 0.1 %; Lymphocyte % 0.7 %; Nucleated Red Blood Cells % 0.3
[2022-04-12] MEDS ORDERED: Albuterol 2.5mg/3 ml (0.083%) NEB.SOLN INH PRN (08:50)
[2022-04-12] MEDS ORDERED: Alteplase (CATHFLO) 2 MG VIAL IV ONE (09:00)
[2022-04-12] MEDS ORDERED: Sodium Chloride(INHALANT) 7% 4 ML NEB.SOLN INH PRN (10:07)
[2022-04-12] MEDS: ZOSYN 3.375 GM Q8H per EXTENDED INFUSION IV SCH ×3 (10:45→22:30)
[2022-04-12] MEDS ORDERED: Acetylcysteine INH SOL (RT) 200 MG/ML 4 ML VIAL INH SCH (11:00)
[2022-04-12] MEDS: Albuterol 2.5mg/3 ml (0.083%) NEB.SOLN INH SCH ×4 (11:16→23:18)
[2022-04-12 11:48] LABS: C Reactive Protein 190.38 mg/L (<8.01)
[2022-04-12] MEDS: Pantoprazole VIAL 40 MG VIAL IV SCH (13:39)
[2022-04-12] MEDS: Ondansetron 4 mg VIAL 2 MG/ML 2 ml VIAL IV PRN ×2 (14:58→22:50)
[2022-04-12] MEDS: Enoxaparin 40 MG/0.4 ML SYR SUBCUT SCH (14:58)
[2022-04-12] MEDS: Acetylcysteine INH SOL (RT) 200 MG/ML 4 ML VIAL INH SCH (20:36)
[2022-04-13] MEDS: Lactated Ringers 1000 ml BAG 1,000 ML IV SCH ×2 (01:35→14:40)
[2022-04-13] MEDS: Zinc Oxide 40% (TOPICAL) TUBE TOPICAL SCH ×8 (03:37→22:29)
[2022-04-13] MEDS: Albuterol 2.5mg/3 ml (0.083%) NEB.SOLN INH SCH ×4 (03:39→14:44)
[2022-04-13] MEDS: Acetaminophen IV 1 GM/100ML 1,000 MG/100 ML BAG IV SCH ×3 (04:35→21:04)
[2022-04-13] MEDS: Levothyroxine 100 MCG/5 ML VIAL IV SCH (04:35)
[2022-04-13] MEDS: guaiFENesin 100 mg/5 ml LIQ unit dose cup PO SCH ×4 (04:44→23:39)
[2022-04-13 05:21] LABS: Hematocrit 29 % (35-47); Hemoglobin 8.7 g/dL (12.0-16.0); Mean Corpuscular HGB Conc 30 g/dL (31-36); Mean Corpuscular Hemoglobin 26 pg (27-31); Mean Corpuscular Volume 86 fL (80-97); Mean Platelet Volume 7.1 fL (7.4-10.4); Platelet Count 495 10^3/uL (150-450); Red Blood Count 3.37 10^6 /uL (3.70-4.87); Red Cell Distribution Width 21 % (10-15); White Blood Count 43.6 10^3/uL (3.5-10.8)
[2022-04-13 06:22] LABS: Calcium 9.9 mg/dL (8.6-10.3); Magnesium 1.9 mg/dL (1.9-2.7); Potassium 4.3 mmol/L (3.5-5.0)
[2022-04-13] MEDS: ZOSYN 3.375 GM Q8H per EXTENDED INFUSION IV SCH ×3 (06:55→21:03)
[2022-04-13] MEDS: Acetylcysteine INH SOL (RT) 200 MG/ML 4 ML VIAL INH SCH (07:12)
[2022-04-13 07:57] LABS: ABS Basophils 0.1 10^3/ul (0-0.2); ABS Lymphocytes 0.3 10^3/ul (1.0-4.8); ABS Neutrophils 42.1 10^3/ul (1.5-7.7); ABS Nucleated RBC 0.2 10^3/ul; Lymphocyte % 0.8 %; Nucleated Red Blood Cells % 0.5
[2022-04-13 07:59] LABS: Anisocytosis 1+; Basophilic Stippling 1+; Hypochromasia 2+; Microcytosis 1+
[2022-04-13 08:01] LABS: Acanthocytes 1+
[2022-04-13] MEDS: Ondansetron 4 mg VIAL 2 MG/ML 2 ml VIAL IV PRN ×2 (08:46→14:16)
[2022-04-13] MEDS: Lidocaine PATCH 5% PATCH TRANSDERM SCH (09:49)
[2022-04-13] MEDS: Pantoprazole VIAL 40 MG VIAL IV SCH (12:21)
[2022-04-13] MEDS: Enoxaparin 40 MG/0.4 ML SYR SUBCUT SCH (14:17)
[2022-04-13] MEDS ORDERED: Acetylcysteine INH SOL (RT) 200 MG/ML 4 ML VIAL INH PRN (14:53)
[2022-04-13] MEDS ORDERED: Albuterol 2.5mg/3 ml (0.083%) NEB.SOLN INH PRN (14:54)
[2022-04-14] MEDS: Zinc Oxide 40% (TOPICAL) TUBE TOPICAL SCH ×7 (02:12→22:27)
[2022-04-14] MEDS: Lactated Ringers 1000 ml BAG 1,000 ML IV SCH (03:21)
[2022-04-14] MEDS: Acetaminophen IV 1 GM/100ML 1,000 MG/100 ML BAG IV SCH ×3 (05:56→22:19)
[2022-04-14] MEDS: guaiFENesin 100 mg/5 ml LIQ unit dose cup PO SCH ×3 (06:03→16:54)
[2022-04-14] MEDS: ZOSYN 3.375 GM Q8H per EXTENDED INFUSION IV SCH ×2 (06:08→17:33)
[2022-04-14] MEDS: Levothyroxine 100 MCG/5 ML VIAL IV SCH (06:26)
[2022-04-14 06:29] LABS: Hematocrit 25 % (35-47); Hemoglobin 7.2 g/dL (12.0-16.0); Mean Corpuscular HGB Conc 29 g/dL (31-36); Mean Corpuscular Hemoglobin 25 pg (27-31); Mean Corpuscular Volume 86 fL (80-97); Platelet Count 411 10^3/uL (150-450); Red Blood Count 2.86 10^6 /uL (3.70-4.87); Red Cell Distribution Width 21 % (10-15); White Blood Count 31.9 10^3/uL (3.5-10.8)
[2022-04-14 07:03] LABS: Calcium 9.2 mg/dL (8.6-10.3); Magnesium 1.5 mg/dL (1.9-2.7); Potassium 4.2 mmol/L (3.5-5.0)
[2022-04-14] MEDS ORDERED: Magnesium Sulf 4 GM/100 ML IV 4,000 MG/100 ML BAG IVPB ONE (07:09)
[2022-04-14 07:18] LABS: eGFR CKD-EPI 119.6 (>60)
[2022-04-14 07:26] LABS: ABS Lymphocytes 0.3 10^3/ul (1.0-4.8); ABS Neutrophils 30.6 10^3/ul (1.5-7.7); ABS Nucleated RBC 0.1 10^3/ul; Lymphocyte % 0.8 %; Nucleated Red Blood Cells % 0.2
[2022-04-14] MEDS: Lidocaine PATCH 5% PATCH TRANSDERM SCH (09:12)
[2022-04-14] MEDS: Pantoprazole VIAL 40 MG VIAL IV SCH (11:34)
[2022-04-14 14:28] LABS: C Reactive Protein 78.11 mg/L (<8.01)
[2022-04-14] MEDS: Enoxaparin 40 MG/0.4 ML SYR SUBCUT SCH (14:43)
[2022-04-14] MEDS ORDERED: Prochlorperazine 5 mg/ml 2 ml VIAL (10 mg) IV PRN (14:52)
[2022-04-14 16:02] LABS: Adenovirus Undetected (Undetected); Bordetella parapertussis Undetected (Undetected); Bordetella pertussis Undetected (Undetected); Chlamydophila pneumoniae Undetected (Undetected); Coronavirus 229E Undetected (Undetected); Coronavirus HKU1 Undetected (Undetected); Coronavirus NL63 Undetected (Undetected); Coronavirus OC43 Undetected (Undetected); Human Metapneumovirus Undetected (Undetected); Human Rhinovirus/Enterovirus Undetected (Undetected); Influenza A Undetected (Undetected); Influenza B Undetected (Undetected); Mycoplasmoides pneumoniae Undetected (Undetected); Parainfluenza Virus 1 Undetected (Undetected); Parainfluenza Virus 2 Undetected (Undetected); Parainfluenza Virus 3 Undetected (Undetected); Parainfluenza Virus 4 Undetected (Undetected); Respiratory Syncytial Virus Undetected (Undetected); Specimen Source NASOPHARYNGEAL SWAB
[2022-04-14 17:59] LABS: Urine Appearance Cloudy; Urine Bilirubin Negative (Negative); Urine Blood Negative (Negative); Urine Color Yellow; Urine Glucose Negative (Negative); Urine Ketones Negative (Negative); Urine Nitrite Negative (Negative); Urine Protein Negative (Negative); Urine Specific Gravity 1.015 (1.002-1.030); Urine Urobilinogen Negative (Negative)
[2022-04-14] MEDS: Cephalexin SUSP ORALSYR 50 MG/ML PO SCH (20:03)
[2022-04-15] MEDS: guaiFENesin 100 mg/5 ml LIQ unit dose cup PO SCH ×4 (00:54→20:07)
[2022-04-15] MEDS: Ondansetron 4 mg VIAL 2 MG/ML 2 ml VIAL IV PRN ×2 (02:30→19:38)
[2022-04-15] MEDS: Zinc Oxide 40% (TOPICAL) TUBE TOPICAL SCH ×7 (02:39→20:07)
[2022-04-15] MEDS: Morphine 2 MG/ML SYRINGE IV PRN ×7 (04:59→22:27)
[2022-04-15] MEDS: Levothyroxine 100 MCG/5 ML VIAL IV SCH (06:33)
[2022-04-15] MEDS: Acetaminophen IV 1 GM/100ML 1,000 MG/100 ML BAG IV SCH ×3 (06:41→22:26)
[2022-04-15 07:10] LABS: Hematocrit 29 % (35-47); Hemoglobin 8.9 g/dL (12.0-16.0); Mean Corpuscular HGB Conc 31 g/dL (31-36); Mean Corpuscular Hemoglobin 26 pg (27-31); Mean Corpuscular Volume 85 fL (80-97); Mean Platelet Volume 7.1 fL (7.4-10.4); Platelet Count 537 10^3/uL (150-450); Red Blood Count 3.41 10^6 /uL (3.70-4.87); Red Cell Distribution Width 21 % (10-15); White Blood Count 35.2 10^3/uL (3.5-10.8)
[2022-04-15 07:33] LABS: Calcium 10.4 mg/dL (8.6-10.3); Magnesium 2.4 mg/dL (1.9-2.7)
[2022-04-15 07:38] LABS: eGFR CKD-EPI 108.5 (>60)
[2022-04-15] MEDS: Cephalexin SUSP ORALSYR 50 MG/ML PO SCH (08:34)
[2022-04-15] MEDS: Lidocaine PATCH 5% PATCH TRANSDERM SCH (08:39)
[2022-04-15] MEDS: Pantoprazole VIAL 40 MG VIAL IV SCH (12:58)
[2022-04-15] MEDS ORDERED: Cefepime ADVAN 1 GM in NS 0.9% 50 ML 50 ML IVPB SCH (13:00)
[2022-04-15] MEDS: Cefepime 1 GM in Dextrose 1 GM/50 ML BAG IV SCH (13:31)
[2022-04-15] MEDS: Enoxaparin 40 MG/0.4 ML SYR SUBCUT SCH (16:23)
[2022-04-15] MEDS ORDERED: LORazepam 2 mg VIAL 1 ml IV PUSH PRN (16:50)
[2022-04-15] MEDS ORDERED: Lorazepam PYXIS KEY PRN (16:50)
[2022-04-15] MEDS ORDERED: Pancrelipase 5,000 units CAP G TUBE ONE (20:45)
[2022-04-15] MEDS ORDERED: Sodium Bicarb 650 mg (ANTACID) TAB G TUBE ONE (20:45)
[2022-04-16] MEDS: Zinc Oxide 40% (TOPICAL) TUBE TOPICAL SCH ×4 (00:28→09:26)
[2022-04-16] MEDS: guaiFENesin 100 mg/5 ml LIQ unit dose cup PO SCH ×4 (00:28→06:44)
[2022-04-16] MEDS: Cefepime 1 GM in Dextrose 1 GM/50 ML BAG IV SCH (00:46)
[2022-04-16] MEDS: Morphine 2 MG/ML SYRINGE IV PRN ×3 (00:55→11:35)
[2022-04-16] MEDS: Acetaminophen IV 1 GM/100ML 1,000 MG/100 ML BAG IV SCH (06:30)
[2022-04-16] MEDS: Levothyroxine 100 MCG/5 ML VIAL IV SCH (06:38)
[2022-04-16] MEDS: Lidocaine PATCH 5% PATCH TRANSDERM SCH (09:10)
[2022-04-16 11:20] VITALS: BP 146/85
[2022-04-16] MEDS: Pantoprazole VIAL 40 MG VIAL IV SCH (11:34)
[2022-04-16] MEDS ORDERED: Tranexamic Acid 1,000 MG/10 ML SDV INH ONE (11:58)
== END 2022-04-16 12:05 | disposition expired | DRG 871 ==
LOC: ED 11:05 → EDHOLD 14:33 → SUATTDRO 14:33 → EDHOLD 15:57 → MEDTELE 17:58
PROVIDERS: ADMIT Internal Medicine; ATTEND Internal Medicine